=== PATIENT | male | born 1945 | race Caucasian/White ===

== ENCOUNTER → 2016-05-17 | Outpatient (CLI) | payer MEDICARE, OTHER ==
[2016-05-17 08:43] LABS: Basophils % (A) 1 %; CH 28.7; CHCM 32.9; Eosinophils # (A) 0.3 k/uL (0-0.7); Eosinophils % (A) 4 %; HCT 42.3 % (39.0-53.0); HGB 13.4 gm/dL (13.0-17.5); Luc # (Auto) 0.17; Luc % (Auto) 3; Lymphocytes # (A) 1.6 k/uL (1.0-4.8); Lymphocytes % (A) 29 %; MCH 27.8 pg (25.0-35.0); MCHC 31.7 g/dL (31.0-37.0); MCV 87.6 fL (80.0-100.0); Mean Platelet Volume 7.8; Monocytes # (A) 0.4 k/uL (0-1.0); Monocytes % (A) 7 %; Neutrophils # (A) 3.2 k/uL (1.3-7.7); Neutrophils % (A) 56 %; RBC 4.83 m/uL (4.30-5.90); RDW 13.3 % (11.5-15.5); WBC 5.7 k/uL (3.8-10.6); WBC (Perox) 6.23
[2016-05-17 09:00] LABS: ALT 57 U/L (21-72); AST 31 U/L (17-59); Alkaline Phosphatase 69 U/L (38-126); Anion Gap 9 mmol/L; Bilirubin, Delta 0.2 mg/dL (0.0-0.2); Blood Urea Nitrogen 18 mg/dL (9-20); Calcium 9.2 mg/dL (8.4-10.2); Carbon Dioxide 26 mmol/L (22-30); Chloride 108 mmol/L (98-107); Cholesterol 156 mg/dL (<200); Glucose 142 mg/dL (74-99); HDL Cholesterol 39 mg/dL (40-60); Non-African American GFR(MDRD) >60 (>60 ml/min/1.73 sqM); Potassium 4.7 mmol/L (3.5-5.1); Sodium 143 mmol/L (137-145); Total Bilirubin 0.4 mg/dL (0.2-1.3); Total Protein 7.2 g/dL (6.3-8.2); Triglycerides 187 mg/dL (<150)
[2016-05-17 10:51] LABS: Prostate Specific Antigen <0.06 ng/mL (0.00-4.00)
== END | disposition home or self-care (01) ==
LOC: LABWHC1 08:11
PROVIDERS: ATTEND Family Medicine
DX: Z00.00 Encounter for general adult medical examination without abnormal findings (principal); E78.5 Hyperlipidemia, unspecified; E11.9 Type 2 diabetes mellitus without complications; I10 Essential (primary) hypertension; G47.33 Obstructive sleep apnea (adult) (pediatric)
CPT/HCPCS: 36415; 80053; 80061; 82248; 84153; 84443; 85025

== ENCOUNTER → 2017-05-05 | Outpatient (CLI) | payer MEDICARE, OTHER | END | disposition home or self-care (01) | LOC: CPPFTMAIN 13:46 | PROVIDERS: ATTEND Family Medicine | DX: J20.9 Acute bronchitis, unspecified (principal); Z88.5 Allergy status to narcotic agent | CPT/HCPCS: 94060; 94726; 94729 ==

== ENCOUNTER → 2017-05-27 | Outpatient (CLI) | payer MEDICARE, OTHER ==
[2017-05-27 09:02] LABS: Basophils % (A) 1 %; Eosinophils # (A) 0.3 k/uL (0-0.7); Eosinophils % (A) 5 %; HCT 43.3 % (39.0-53.0); HGB 14.4 gm/dL (13.0-17.5); Lymphocytes # (A) 1.7 k/uL (1.0-4.8); Lymphocytes % (A) 28 %; MCH 28.5 pg (25.0-35.0); MCHC 33.3 g/dL (31.0-37.0); MCV 85.4 fL (80.0-100.0); Mean Platelet Volume 8.2; Monocytes # (A) 0.5 k/uL (0-1.0); Monocytes % (A) 8 %; Neutrophils # (A) 3.4 k/uL (1.3-7.7); Neutrophils % (A) 56 %; Platelet Count 248 k/uL (150-450); RBC 5.06 m/uL (4.30-5.90); RDW 13.8 % (11.5-15.5); WBC 6.1 k/uL (3.8-10.6)
[2017-05-27 09:32] LABS: ALT 61 U/L (21-72); AST 33 U/L (17-59); Albumin 4.3 g/dL (3.5-5.0); Alkaline Phosphatase 60 U/L (38-126); Anion Gap 15 mmol/L; Blood Urea Nitrogen 19 mg/dL (9-20); Calcium 9.7 mg/dL (8.4-10.2); Carbon Dioxide 24 mmol/L (22-30); Chloride 105 mmol/L (98-107); Cholesterol 161 mg/dL (<200); Glucose 146 mg/dL (74-99); HDL Cholesterol 37 mg/dL (40-60); LDL Cholesterol,Calculated 87 mg/dL (0-99); Potassium 4.4 mmol/L (3.5-5.1); Sodium 144 mmol/L (137-145); Total Bilirubin 0.5 mg/dL (0.2-1.3); Triglycerides 185 mg/dL (<150)
[2017-05-27 09:46] LABS: T4, Free (Free Thyroxine) 0.77 ng/dL (0.78-2.19)
[2017-05-27 10:02] LABS: Prostate Specific Antigen <0.10 ng/mL (0.00-4.00)
[2017-05-27 18:20] LABS: Hemoglobin A1C 6.9 % (4.0-6.0)
== END | disposition home or self-care (01) ==
LOC: LABWHC1 07:22
PROVIDERS: ATTEND Family Medicine
DX: Z00.00 Encounter for general adult medical examination without abnormal findings (principal); E78.2 Mixed hyperlipidemia; I10 Essential (primary) hypertension; E11.65 Type 2 diabetes mellitus with hyperglycemia
CPT/HCPCS: 36415; 80053; 80061; 83036; 84153; 84439; 84443; 85025

== ENCOUNTER → 2017-10-06 | Outpatient (CLI) | payer MEDICARE, OTHER | END | disposition home or self-care (01) | LOC: LABWHC1 08:04 | PROVIDERS: ATTEND Family Medicine | DX: Z08 Encounter for follow-up examination after completed treatment for malignant neoplasm (principal); Z85.46 Personal history of malignant neoplasm of prostate; Z79.899 Other long term (current) drug therapy | CPT/HCPCS: 36415; 84153 ==

== ENCOUNTER → 2018-02-26 | Outpatient (CLI) | payer MEDICARE, OTHER ==
--- NOTE | 2018-02-26 16:04 | CONS ---
CONSULTATION DATE OF SERVICE: 02/26/2018 This patient is a 72-year-old gentleman who has been re-evaluated in Sleep Center for obstructive sleep apnea-hypopnea syndrome. Patient has history of obstructive sleep apnea for about 8 years. He was on treatment with CPAP at 10 cm of water for all those years. Last visit to Sleep Center was about 3-1/2 years ago. Since that time, patient has continued to use his CPAP equipment until about 2 weeks ago, when his machine started to create some kind of burning smell when he put it on. Subsequently he stopped using the machine. He continued to have snoring and multiple awakenings from sleep without CPAP. At present the patient's sleep schedule from around 10 or 10:30 until 6 or 7 a.m. No problem at all with falling asleep. No TV in bedroom. He wakes up from sleep again several times with 2 episodes of nocturia. No history of hypnagogic hallucinations, sleep paralysis or cataplexy. In the morning patient wakes up tired, falling asleep during the day, has problems with memory. [place] Sleepiness Scale significantly increased at 12. PAST MEDICAL HISTORY: Positive for: 1. Hypertension. 2. Acid reflux. 3. Prostate cancer. 4. Type 2 diabetes. PAST SURGICAL HISTORY: 1. Surgical treatment for prostate cancer followed by radiation therapy. 2. Status post colostomy and then reversal of colostomy. MEDICATIONS: 1. Metformin. 2. Amlodipine. 3. Lisinopril. 4. Omeprazole. 5. Atorvastatin. 6. Baby aspirin. 7. [place]-3 supplement. SOCIAL HISTORY: Positive for smoking in the past; quit about 40 years ago. Alcohol consumption none at the present time. REVIEW OF SYSTEMS: Multiple awakenings from sleep, sleepiness during the day. PHYSICAL EXAMINATION: GENERAL: A pleasant gentleman without distress. VITAL SIGNS: BP 168/81, HR 51, RR 18, height 5 feet 6-1/2 inches, weight 216.4, body mass index 34.3, temperature 97.8, oxygen saturation at room air 96%. HEENT: PERRLA, EOMI. Evaluation of oropharynx showed tongue protrudes midline. Extremely low position of soft palate. Mallampati IV. NECK: Supple. No JVD. Thyroid is not palpable. Wide neck; 17-1/4 inches in circumference. LUNGS: Clear to percussion and to auscultation. Good air exchange. No wheezing or rhonchi. HEART: S1, S2 regular. No murmurs, gallops or rubs. ABDOMEN: Slightly obese. EXTREMITIES: No clubbing or cyanosis. GRAIN SHIPPER: Awake, alert, and oriented X3. Cranial nerves 2 to 7 intact. There is no fasciculation or atrophy. noted. No focal deficits observed. IMPRESSION: 1. History of obstructive sleep apnea for about 8 years. Patient continued to use his CPAP equipment, but recently the machine has been broken. He has snoring, multiple awakenings from sleep, extremely low position of soft palate, wide neck, excessive daytime sleepiness; obstructive sleep apnea-hypopnea syndrome. I reviewed results of previous sleep studies Patient had severe obstructive sleep apnea with apnea- hypopnea index of 43.8. 2. Obesity. 3. Hypertension. 4. Acid reflux. 5. Status post prostate cancer, status post surgical treatment and radiation therapy. 6. Status post colon stoma surgery and reversal of colostomy. 7. Diabetes mellitus, type 2. 8. Hyperlipidemia. PLAN: 1. Prescription for new CPAP unit with Auto PAP options. 2. Patient will continue to use CPAP equipment every night for the whole night. Previously pressure was at the level of 10 cm of water. 3. Sleep hygiene with regular time in bed for at least 8 hours. 4. No driving if feeling any sleepiness. 5. Losing weight. 6. I will see patient for follow-up visit in one month to check his clinical response on treatment with new CPAP, compliance with new CPAP, and to make any necessary adjustments. Thank you very much for allowing me to participate in the management of your patient. Sincerely, Brodie Albarado MD, PhD, FAASM Diplomat of [place] [employer] [place] [employer] Note Specialist of [facility] [place] MMODL / IJN: [id number] /
== END ==
LOC: SLEEP 13:04
PROVIDERS: ATTEND Internal Medicine
DX: G47.33 Obstructive sleep apnea (adult) (pediatric) (principal); E66.9 Obesity, unspecified; I10 Essential (primary) hypertension; K21.9 Gastro-esophageal reflux disease without esophagitis; E11.9 Type 2 diabetes mellitus without complications; E78.5 Hyperlipidemia, unspecified; Z93.3 Colostomy status; Z99.89 Dependence on other enabling machines and devices; Z85.46 Personal history of malignant neoplasm of prostate; Z98.890 Other specified postprocedural states; Z92.3 Personal history of irradiation; Z79.899 Other long term (current) drug therapy; Z79.82 Long term (current) use of aspirin; Z79.84 Long term (current) use of oral hypoglycemic drugs; Z87.891 Personal history of nicotine dependence
CPT/HCPCS: 99211

== ENCOUNTER → 2018-05-07 | Outpatient (CLI) | payer MEDICARE, OTHER ==
--- NOTE | 2018-05-07 16:31 | PN ---
PROGRESS NOTE DATE OF SERVICE: 05/07/2018 72-year-old gentleman who has been followed in Sleep Center for treatment of obstructive sleep apnea-hypopnea syndrome. Recently patient received new CPAP unit, and he is able to use equipment every night for the whole night without significant problems. He sleeps well with the machine. No snoring with the machine. [place] Sleepiness Scale today is 4, which is normal. I checked his CPAP unit. Pressure in the range 5 to 12, average pressure 10.7 cm of water. Usage is 100% of nights more than 4 hours. Average usage is 7.5 hours. Leak is 19 L/minute which is borderline. Apnea-hypopnea index 3.4, which is normal. MEDICATIONS: Metformin, amlodipine, lisinopril, omeprazole, atorvastatin, baby aspirin, and omega-3 supplement and pioglitazone. PHYSICAL EXAM: Patient in no distress. BP 142/72, HR 63, RR 16, weight 209.2, temp 98, O2 saturation at room air 95%. Oropharynx showed extremely low position of soft palate. Mallampati 4. Neck Supple, no JVD. Thyroid is not palpable. LUNGS Clear to percussion and to auscultation. Good air exchange. No wheezing or rhonchi. HEART S1, S2 regular. No murmurs, gallops, or rubs. ABDOMEN Soft and nontender. Bowel sounds are present. No organomegaly appreciated. EXTREMITIES No clubbing or cyanosis. DISCHARGING MACHINE OPERATOR Awake, alert, and oriented X3. Cranial nerves 2 to 7 intact. There is no fasciculation or atrophy. noted. No focal deficits observed. IMPRESSION: 1. Obstructive sleep apnea-hypopnea syndrome. Patient demonstrated 100% compliance with treatment benefitting from treatment. 2. Mild obesity. 3. Diabetes mellitus types 2. 4. Acid reflux. 5. Hypertension. 6. History of prostate carcinoma, status post surgical treatment and radiation therapy. 7. Hyperlipidemia. 8. History of colon polyps, history of colostomy which was reversed. PLAN: 1. Patient will continue to use CPAP equipment every night for the whole night. 2. Watching weight. 3. Sleep hygiene with regular time in bed for at least 8 hours. 4. No driving if feeling sleepiness. 5. We will maintain all necessary CPAP prescriptions including mask. Presently patient on Renteria FX medium nasal pillows tube filters. Thank you very much for allowing me to participate in management of your patient. Sincerely, Brodie Albarado MD, PhD, FAASM Diplomat of [place] [employer] [place] [employer] Tractor Trailer Moving Van Driver of [facility] [place] MMRASHEL / FLORINDA: [id number] /
== END ==
LOC: SLEEP 14:35
PROVIDERS: ATTEND Internal Medicine
DX: G47.33 Obstructive sleep apnea (adult) (pediatric) (principal); E66.9 Obesity, unspecified; E11.9 Type 2 diabetes mellitus without complications; K21.9 Gastro-esophageal reflux disease without esophagitis; E78.5 Hyperlipidemia, unspecified; I10 Essential (primary) hypertension; Z85.46 Personal history of malignant neoplasm of prostate; Z92.3 Personal history of irradiation; Z93.3 Colostomy status; Z86.010 Personal history of colon polyps; Z99.89 Dependence on other enabling machines and devices; Z79.899 Other long term (current) drug therapy; Z79.84 Long term (current) use of oral hypoglycemic drugs; Z79.82 Long term (current) use of aspirin

== ENCOUNTER → 2018-06-09 | Outpatient (CLI) | payer MEDICARE, OTHER ==
[2018-06-09 08:08] LABS: Basophils % (A) 1 %; Eosinophils # (A) 0.3 k/uL (0-0.7); Eosinophils % (A) 7 %; HCT 41.4 % (39.0-53.0); HGB 13.1 gm/dL (13.0-17.5); Lymphocytes # (A) 1.3 k/uL (1.0-4.8); Lymphocytes % (A) 34 %; MCH 27.6 pg (25.0-35.0); MCHC 31.6 g/dL (31.0-37.0); MCV 87.2 fL (80.0-100.0); Mean Platelet Volume 8.2; Monocytes # (A) 0.3 k/uL (0-1.0); Monocytes % (A) 7 %; Neutrophils # (A) 1.9 k/uL (1.3-7.7); Neutrophils % (A) 49 %; Platelet Count 249 k/uL (150-450); RBC 4.75 m/uL (4.30-5.90); RDW 14.8 % (11.5-15.5); WBC 3.8 k/uL (3.8-10.6)
[2018-06-09 10:46] LABS: Albumin 4.4 g/dL (3.80-4.90); Albumin/Globulin Ratio 2.44 (1.60-3.17); Calcium 9.4 mg/dL (8.7-10.3); Globulin 1.8 g/dL (1.6-3.3); LDL Cholesterol,Calculated 72.6 mg/dL (0.0-131.0); Potassium 4.6 mmol/L (3.5-5.5); Total Bilirubin 0.6 mg/dL (0.3-1.2); Total Protein 6.2 g/dL (6.2-8.2); VLDL Calculation 20.4 mg/dL (5.00-40.00)
[2018-06-09 10:54] LABS: T4, Free (Free Thyroxine) 1.2 ng/dL (0.80-1.80)
[2018-06-09 17:35] LABS: Hemoglobin A1C 6.4 % (4.0-6.0)
== END | disposition home or self-care (01) ==
LOC: LABWHC1 07:19
PROVIDERS: ATTEND Family Medicine
DX: Z00.00 Encounter for general adult medical examination without abnormal findings (principal); E78.5 Hyperlipidemia, unspecified; I10 Essential (primary) hypertension; E11.9 Type 2 diabetes mellitus without complications
CPT/HCPCS: 36415; 80053; 80061; 83036; 84153; 84439; 84443; 85025

== ENCOUNTER → 2018-06-15 | Outpatient (CLI) | payer MEDICARE, OTHER ==
--- NOTE | 2018-06-15 13:25 | XR ---
EXAMINATION TYPE: XR lumbosacral spine min 4V DATE OF EXAM: 06/15/2018 CLINICAL HISTORY: Low back pain and difficulty walking with no known injury TECHNIQUE: Frontal, lateral, and oblique images of the lumbar spine are obtained. COMPARISON: None FINDINGS: There are 5 lumbar type vertebral bodies identified. There is a levoscoliosis of the lumba r spine. This appears nonrotatory. The lumbar spine shows satisfactory alignment without evidence of acute fracture or dislocation. Vertebral body heights and disk space heights are within normal limits . Multilevel facet arthropathy is seen from L3 through S1. Very small anterior osteophytes are seen a t multiple levels. The oblique images appear within normal limits. The overlying soft tissue appea rs unremarkable. Severe atherosclerosis of the abdominal aorta is seen. Surgical clips are partially visualized in the pelvis. Diffuse osseous demineralization is seen. IMPRESSION: 1. No acute fracture or malalignment is seen in the lumbar spine. 2. Moderate multilevel degenerative disc disease of the lumbar spine, not rotatory levoscoliosis, and diffuse osseous demineralization.
== END ==
LOC: RADXRMAIN 11:34
PROVIDERS: ATTEND Family Medicine
DX: M51.16 Intervertebral disc disorders with radiculopathy, lumbar region (principal)
CPT/HCPCS: 72110

== ENCOUNTER → 2019-08-18 | Outpatient (CLI) | payer MEDICARE, OTHER ==
--- NOTE | 2019-08-19 00:01 | SFUN ---
SLEEP CENTER FOLLOW UP NOTE DATE OF SERVICE: 08/18/2019 This is a 73-year-old gentleman who has been followed in sleep center for treatment of obstructive sleep apnea-hypopnea syndrome. The patient successfully continuing to use his CPAP equipment every night for the whole night. No snoring with the machine. He sleeps well. [place] Sleepiness Scale is 3, which is totally perfect. I checked his CPAP unit, range of the pressure 5 to 12, average pressure 9.8 cm of water, usage is 30 out of 30 nights for more than 4 hours, average 7.5 hours per night, which is absolutely normal. Leak is 18 L/minute, which is acceptable. Apnea-hypopnea index 1.9, which is totally normal. MEDICATIONS: Atorvastatin, amlodipine, omeprazole, metformin, lisinopril, pioglitazone, vitamin D3, multivitamins, baby aspirin. PHYSICAL EXAMINATION: GENERAL: Patient in no distress. VITAL SIGNS: BP 151/75, HR 52, RR 16, height 5 feet 6 inches, weight 214, body mass index 34.5, temperature 97.9, oxygen saturation at room air 97%. HEENT: PERRLA, EOMI. Oropharynx extremely low position of soft palate. Mallampati 4. NECK: Supple, no JVD. Thyroid is not palpable. LUNGS: Clear to percussion and to auscultation. Good air exchange. No wheezing or rhonchi. HEART: S1, S2 regular. No murmurs, gallops, or rubs. ABDOMEN: Obese. EXTREMITIES: No clubbing or cyanosis. CMV DRIVER: Awake, alert, and oriented X3. Cranial nerves 2 to 7 intact. There is no fasciculation or atrophy. noted. No focal deficits observed. IMPRESSION: 1. Obstructive sleep apnea-hypopnea syndrome. Patient demonstrated great compliance with treatment benefitting from treatment. 2. Diabetes mellitus type 2. 3. Obesity. 4. Acid reflux. 5. Hyperlipidemia. 6. Hypertension. 7. History of prostate carcinoma, status post surgical treatment and radiation therapy. 8. Hyperlipidemia. 9. History of colon polyps, status post colostomy, which was . PLAN: 1. Patient will continue to use CPAP equipment every night for the whole night. 2. Losing weight. During this appointment, patient increased his weight on 5 pounds comparing with the previous visit. 3. No driving if feeling sleepiness. 4. I will maintain all necessary prescriptions for CPAP supplies including mask, tube, filters. Thank you very much for allowing me to participate in management of your patient. Sincerely, Brodie Albarado MD, PhD, FAASM Diplomat of [place] [employer] Specialties [employer] Board of Internal Medicine Dynamo Repairer of [facility] [place] MMRASHEL / FLORINDA: [id number] /
== END | disposition home or self-care (01) ==
LOC: SLEEP 15:14
PROVIDERS: ATTEND Internal Medicine
DX: G47.33 Obstructive sleep apnea (adult) (pediatric) (principal); E11.9 Type 2 diabetes mellitus without complications; E66.9 Obesity, unspecified; K21.9 Gastro-esophageal reflux disease without esophagitis; E78.5 Hyperlipidemia, unspecified; I10 Essential (primary) hypertension; Z68.34 Body mass index [BMI] 34.0-34.9, adult; Z85.46 Personal history of malignant neoplasm of prostate; Z86.010 Personal history of colon polyps; Z92.3 Personal history of irradiation; Z93.3 Colostomy status; Z79.84 Long term (current) use of oral hypoglycemic drugs; Z79.82 Long term (current) use of aspirin; Z79.899 Other long term (current) drug therapy

== ENCOUNTER → 2020-02-24 | Outpatient (CLI) | payer MEDICARE, OTHER ==
--- NOTE | 2020-02-24 20:15 | SFUN ---
SLEEP CENTER FOLLOW UP NOTE DATE OF SERVICE: 02/24/2020 74-year-old gentleman who has been followed in the Sleep Center for treatment of obstructive sleep apnea-hypopnea syndrome. The patient continues to use his CPAP equipment every night. He does not snore with the machine. [place] Sleepiness Scale today is 1. I checked his CPAP unit. Range of the pressure 5-12. The average pressure 10 cm of water. Usage is 29 out of 30 nights for more than 4 hours with average usage is 7.5 hours per night. Leak is 19 L/minute which is slightly increased. Apnea-hypopnea index is only 1.4, which is totally normal. The patient is using Renteria FX nasal pillow mask, medium size. MEDICATIONS: Atorvastatin 40 mg once a day, amlodipine 5 mg once a day. Omeprazole 20 mg once a day. Metformin 1000 mg twice a day, Pioglitazone 30 mg p.o. once a day, lisinopril 10 mg once a day. Multivitamins. PHYSICAL EXAM: Patient in no distress. BP 158/81. HR 65, RR 15, height 5 feet 6-1/2 inches, weight 224.4 pounds, BMI 35.6, temperature 98.3. Oxygen saturation at room air 97%. Oropharynx extremely low position of soft palate. Mallampati 4. NECK: Supple, no JVD. Thyroid is not palpable. LUNGS: Clear to percussion and to auscultation. Good air exchange. No wheezing or rhonchi. HEART: S1, S2 with some irregularities. No murmurs, gallops, or rubs. ABDOMEN: Soft and nontender. Bowel sounds are present. No organomegaly appreciated. EXTREMITIES: No clubbing or cyanosis. REVIEW COORDINATOR: Awake, alert, and oriented X3. Cranial nerves 2 to 7 intact. There is no fasciculation or atrophy. noted. No focal deficits observed. IMPRESSION: 1. Obstructive sleep apnea-hypopnea syndrome. The patient demonstrated practically 100% compliance with treatment benefitting from treatment. 2. Hypertension. 3. Diabetes mellitus type 2. 4. Acid reflux. 5. Hyperlipidemia. 6. History of prostate carcinoma, status post surgical treatment and radiation therapy. 7. History of colon polyps status post colostomy, which was reversed. PLAN: 1. Patient will continue to use PAP equipment every night for the whole night. 2. Sleep hygiene with regular time in bed for at least 7-1/2 to 8 hours. 3. Precautions related to driving. No driving if feeling sleepiness. 4. I will maintain all necessary prescription for PAP supplies including mask, tube, filters. 5. Watching weight. 6. No driving if feeling sleepiness. 7. Follow-up visit in 6 months or earlier if patient has any problems. Thank you very much for allowing me to participate in management of your patient. Sincerely, Brodie Albarado MD, PhD, FAASM Diplomat of [place] [employer] Special[employer] Board of Internal Medicine Fiberglasser of [facility] [place] MMODL / IJN: [id number] /
== END | disposition home or self-care (01) ==
LOC: SLEEP 13:20
PROVIDERS: ATTEND Internal Medicine
DX: G47.33 Obstructive sleep apnea (adult) (pediatric) (principal); I10 Essential (primary) hypertension; E11.9 Type 2 diabetes mellitus without complications; K21.9 Gastro-esophageal reflux disease without esophagitis; E78.5 Hyperlipidemia, unspecified; Z85.46 Personal history of malignant neoplasm of prostate; Z99.89 Dependence on other enabling machines and devices; Z92.3 Personal history of irradiation; Z86.010 Personal history of colon polyps; Z93.3 Colostomy status

== ENCOUNTER → 2020-08-29 | Outpatient (CLI) | payer MEDICARE, OTHER ==
--- NOTE | 2020-08-29 11:22 | XR ---
Cervical spine HISTORY: M 54.2 5 views of the cervical spine There is multilevel facet arthropathy. Oblique view show foraminal encroachment at C5-6, C6-7 bilater ally. There is spondylosis present at C5-6 and C6-7. Loss of disc height is also present at these lev els. Cervical vertebral bodies show preserved height and near-anatomic alignment. Prevertebral soft t issues are normal. IMPRESSION: Degenerative disc disease and facet arthropathy.
== END | disposition home or self-care (01) ==
LOC: RADXRMAIN 10:27
PROVIDERS: ATTEND Family Medicine
DX: M50.30 Other cervical disc degeneration, unspecified cervical region (principal); M47.812 Spondylosis without myelopathy or radiculopathy, cervical region
CPT/HCPCS: 72050

== ENCOUNTER → 2020-11-08 | Outpatient (CLI) | payer MEDICARE, OTHER ==
--- NOTE | 2020-11-08 19:23 | SFUN ---
SLEEP CENTER FOLLOW UP NOTE 75-year-old gentleman has been followed in Sleep Center for treatment of obstructive sleep apnea-hypopnea syndrome. The patient continued to use his CPAP equipment every night for the whole night getting his supplies in time. [place] Sleepiness Scale today is only 2 which is totally normal. I checked the CPAP unit. It is in automatic regimen with range of the pressure 5-12 cm of water. Average pressure 10 cm of water. Usage is 30/30 nights for more than 4 hours with average usage is 7.8 hours per night. Leak is 17 L/minute which is borderline. Apnea-hypopnea index is 2.5 which is totally normal. MEDICATIONS: Atorvastatin 40 mg once a day, amlodipine 5 mg once a day, omeprazole 20 mg once a day, metformin 1000 mg twice a day, lisinopril once a day, Pioglitazone 30 mg once a day, aspirin 81 mg once a day. Lisinopril 10 mg once a day, did not give the dose because she did not have the dose. PHYSICAL EXAMINATION: GENERAL: Patient in no distress. BP 147/79, HR 64, RR 12, height 5 feet 7 inches 1/2, weight 229. Patient increased his weight 5 pounds, body mass index 33.7, temperature 97.7, oxygen saturation at room air, 96%. Oropharynx extremely low position of soft palate, Mallampati 4. NECK: Supple, no JVD. Thyroid is not palpable. LUNGS: Clear to percussion and to auscultation. Good air exchange. No wheezing or rhonchi. HEART: S1, S2 regular. No murmurs, gallops, or rubs. ABDOMEN: Soft and nontender. Bowel sounds are present. No organomegaly appreciated. EXTREMITIES: No clubbing or cyanosis. SAGGER MAKER: Awake, alert, and oriented X3. Cranial nerves 2 to 7 intact. There is no fasciculation or atrophy. noted. No focal deficits observed. IMPRESSION: 1. Obstructive sleep apnea-hypopnea syndrome. Patient demonstrated great compliance with treatment, benefitting from treatment. 2. Hypertension. 3. Diabetes mellitus type 2. 4. Acid reflux. 5. Hyperlipidemia. 6. History of prostate carcinoma, status post surgical and radiation treatment. 7. History of colon polyps, status post reversed colostomy. PLAN: 1. Patient will continue to use PAP equipment every night for the whole night. 2. Sleep hygiene with regular time in bed for at least 7-1/2 to 8 hours. 3. Precautions related to driving. No driving if feeling sleepiness. 4. I will maintain all necessary prescription for PAP supplies including mask, tube, filters. 5. Watching weight. 6. Follow-up visit in 6 months or earlier if patient has any problems. Thank you very much for allowing me to participate in management of your patient. Sincerely, Brodie Albarado MD, PhD, FAASM Diplomat of [place] [employer] Specialties Sleep Medicine Board of [place] Board of Internal Medicine Film Developer of [facility] [place] MMODL / PATIENCEN: [id number] /
== END ==
LOC: SLEEP 10:09
PROVIDERS: ATTEND Internal Medicine
DX: G47.33 Obstructive sleep apnea (adult) (pediatric) (principal); I10 Essential (primary) hypertension; E11.9 Type 2 diabetes mellitus without complications; K21.9 Gastro-esophageal reflux disease without esophagitis; E78.5 Hyperlipidemia, unspecified; Z85.46 Personal history of malignant neoplasm of prostate; Z86.010 Personal history of colon polyps; Z99.89 Dependence on other enabling machines and devices; Z79.84 Long term (current) use of oral hypoglycemic drugs; Z79.899 Other long term (current) drug therapy; Z87.891 Personal history of nicotine dependence; Z88.5 Allergy status to narcotic agent

== ENCOUNTER → 2021-05-09 | Outpatient (CLI) | payer MEDICARE, OTHER ==
--- NOTE | 2021-05-09 15:13 | SFUN ---
SLEEP CENTER FOLLOW UP NOTE DATE OF SERVICE: 05/09/2021 75-year-old gentleman has been followed in Sleep Center for treatment of obstructive sleep apnea-hypopnea syndrome. Patient continues to use his CPAP equipment every night, getting his CPAP supplies in time, mentioned that he did not get his head gear for a while. [place] Sleepiness Scale is 2. I checked his CPAP unit. Range of the pressure 5-12, average pressure 10.8. Usage is 30/30 nights for more than 4 hours, average 8.2 hours per night. Leak is 28 L/minutes which is borderline. Apnea-hypopnea index is 3.4, which is in normal range. MEDICATIONS: Atorvastatin 40 mg once a day, amlodipine 5 mg once a day, omeprazole 20 mg once a day, metformin 1000 mg twice a day, Pioglitazone 30 mg once a day, lisinopril 10 mg once a day, aspirin 81 mg once a day, omega-3 supplement. PHYSICAL EXAMINATION: GENERAL: Patient in no distress. BP 156/86, HR 85, RR 16, weight 228.6 pounds, height 5 feet 7-1/2 inches. He lost 6 pounds since previous visit. Temperature 98.3, oxygen saturation at room air 96%. Oropharynx: Extremely low position of soft palate, Mallampati 4. NECK: Supple, no JVD. Thyroid is not palpable. LUNGS: Clear to percussion and to auscultation. Good air exchange. No wheezing or rhonchi. HEART: S1, S2 regular. No murmurs, gallops, or rubs. ABDOMEN: Slightly obese. Soft and nontender. Bowel sounds are present. No organomegaly appreciated. EXTREMITIES: No clubbing or cyanosis. CNC SPECIALIST: Awake, alert, and oriented X3. Cranial nerves 2 to 7 intact. There is no fasciculation or atrophy. noted. No focal deficits observed. IMPRESSION: 1. Obstructive sleep apnea-hypopnea syndrome. Patient demonstrated 100% compliance with treatment benefitting from treatment. 2. Diabetes mellitus type 2. 3. Hypertension. 4. Acid reflux. 5. Hyperlipidemia. 6. History of prostate carcinoma, status post surgical treatment and radiation therapy. 7. History of colon polyps status post reversed . PLAN: 1. Patient will continue to use PAP equipment every night for the whole night. 2. Sleep hygiene with regular time in bed for at least 7-1/2 to 8 hours. 3. Precautions related to driving. No driving if feeling sleepiness. 4. I will maintain all necessary prescription for PAP supplies including mask, tube, filters. 5. Watching weight. 6. Follow-up visit in 6 months or earlier if patient has any problems. Thank you very much for allowing me to participate in the management of your patient. Sincerely, Brodie Albarado MD, PhD, FAASM Diplomat of [place] [employer] Sleep Medicine Board of [place] Board of Internal Medicine Commissioned Police Officer of [facility] [place] MMODL / IJN: [id number] /
== END ==
LOC: SLEEP 09:57
PROVIDERS: ATTEND Internal Medicine
DX: G47.33 Obstructive sleep apnea (adult) (pediatric) (principal); E11.9 Type 2 diabetes mellitus without complications; I10 Essential (primary) hypertension; K21.9 Gastro-esophageal reflux disease without esophagitis; E78.5 Hyperlipidemia, unspecified; Z86.010 Personal history of colon polyps; Z85.46 Personal history of malignant neoplasm of prostate; Z99.89 Dependence on other enabling machines and devices; Z79.84 Long term (current) use of oral hypoglycemic drugs; Z88.5 Allergy status to narcotic agent

== ENCOUNTER → 2021-11-21 | Outpatient (CLI) | payer MEDICARE, OTHER ==
--- NOTE | 2021-11-21 10:47 | P.PN ---
Subjective DATE: 11/21/2021 FOLLOW UP VISIT. Patient with obstructive sleep apnea hypopnea syndrome return to sleep center for follow-up visit. Information from previous visit have been reviewed. Patient is using PAP equipment every night for the whole night, getting PAP supplies in time. The patient does not have significant problems with the mask, PAP unit and humidification. [place] sleepiness scale is 0, which is perfect. I checked PAP unit. Condition of air filter is good. PAP unit pressure 5-12, average 10.3 cm H2O. Usage is 100 % for more then 4 hours, average 7.8 hours per night. Leak is 23 l/m, which is in acceptable range. Apnea Hypopnea Index is 2.6, which is normal. MEDICATIONS:1. Atorvastatin 40 mg once a day 2. Amlodipine 5 mg once a day 3. Omeprazole 20 mg once a day 4. Metformin 1000 mg twice a day 5. Lisinopril 6. Pioglitazone 30 mg once a day 7. Aspirin 81 mg once a day During physical exam: GENERAL: A pleasant patient without any distress. VITAL SIGNS: BP 167/74, HR 78, RR 16, weight 2:30, temperature 98.0, oxygen saturation at room air 94 % . HEENT: PERRLA, EOMI.low position of soft palate, Mallapati 4 . NECK: Supple. No JVD. LUNGS: Clear to percussion and to auscultation. Good air exchange. No wheezing or rhonchi. HEART: S1, S2 regular. ABDOMEN: Soft and nontender. Obese EXTREMITIES: No clubbing or cyanosis. LIFT ELECTRICIAN: Awake, alert, and oriented x3. No focal deficit. Impressions: 1. Obstructive sleep apnea-hypopnea syndrome. Patient demonstrated great compliance with treatment, benefiting from treatment. 2. Obesity, patient increased his weight in 2 pounds comparing to the previous visit. 3. Diabetes mellitus type 2. 4. Hypertension. 5. Acid reflux. 6. Hyperlipidemia. 7. History of prostate CA status post surgical treatment and radiation treatment. 8. History of colon polyps status post surgical treatment. Plan: 1. Continue using PAP equipment every night for the whole night. 2. To change air filter at least 1-2 times per month. 3. PAP unit should stay lower then position of the head. 4. Advised patient to remove all remaining water from humidifier canister daily and make it dry after each usage. Refill canister with fresh distilled water before each usage. 5. Sleep hygiene with regular time in bed for at least 8 hours. 6. Precautions related to driving. No driving if feel any sleepiness. 7. I will maintain prescription for PAP supplies including mask, tube, filters. 8. Follow up visit in 6 months or earlier if patient has any problems. 9. Watching and losing weight. Thank you very much for allowing me to participate in the management of your patient. Brodie Albarado MD, PhD, FAASM. Diplomat of [place] [employer], Sleep Medicine Board by [place] [employer] Medicine Construction Checker of [facility] [place]
== END ==
LOC: SLEEP 09:56
PROVIDERS: ATTEND Internal Medicine
DX: G47.33 Obstructive sleep apnea (adult) (pediatric) (principal); E66.9 Obesity, unspecified; E11.9 Type 2 diabetes mellitus without complications; I10 Essential (primary) hypertension; K21.9 Gastro-esophageal reflux disease without esophagitis; E78.5 Hyperlipidemia, unspecified; F17.200 Nicotine dependence, unspecified, uncomplicated; Z85.46 Personal history of malignant neoplasm of prostate; Z86.010 Personal history of colon polyps; Z92.3 Personal history of irradiation; Z99.89 Dependence on other enabling machines and devices; Z88.5 Allergy status to narcotic agent
CPT/HCPCS: 99212

== ENCOUNTER → 2022-05-22 | Outpatient (CLI) | payer MEDICARE, OTHER ==
--- NOTE | 2022-05-22 10:36 | P.PN ---
Subjective DATE: 05/22/2022 FOLLOW UP VISIT. Patient with obstructive sleep apnea hypopnea syndrome return to sleep center for follow-up visit. Information from previous visit have been reviewed. Patient is using PAP equipment every night for the whole night, getting PAP supplies in time. The patient does not have significant problems with the mask, PAP unit and humidification. [place] sleepiness scale is 0, which is perfect. I checked information from PAP unit and explained it to the patient. PAP unit pressure 5-12, average around 10 cm H2O. Usage is 100 % for more then 4 hours, average 7.9 hours per night. Leak is 19 l/m, which is in acceptable range. Apnea Hypopnea Index is 2.5, which is normal. MEDICATIONS:1. Amlodipine 5 mg once a day 2. Atorvastatin 40 mg once a day 3. Omeprazole 20 mg once a day 4. Metformin 1000 mg twice a day 5. Lisinopril 6. Pioglitazone 30 mg once a day 7. Aspirin 81 mg once a day During physical exam: GENERAL: A pleasant patient without any distress. VITAL SIGNS: BP 181/78, HR 54, RR 16 , weight 229.2, BMI 35.8, temperature 97.6, oxygen saturation at room air 97 % . HEENT: PERRLA, EOMI.low position of soft palate, Mallapati 4 . NECK: Supple. No JVD. LUNGS: Clear to percussion and to auscultation. Good air exchange. No wheezing or rhonchi. HEART: S1, S2 regular. ABDOMEN: Soft and nontender. Slightly obese EXTREMITIES: No clubbing or cyanosis. SUPERVISOR HYDROCHLORIC AREA: Awake, alert, and oriented x3. No focal deficit. Impressions: 1. Obstructive sleep apnea-hypopnea syndrome. Patient demonstrated great compliance with treatment, benefiting from treatment. 2. Hypertension. 3. Diabetes mellitus type 2. 4. Obesity, BMI 35.8. 5. Hyperlipidemia. 6. Acid reflux. 7. History of colon polyps status post surgical treatment. 8. History of prostate CA status post surgical treatment and radiation therapy. Plan: 1. Continue using PAP equipment every night for the whole night. 2. To change air filter at least 1-2 times per month. 3. PAP unit should stay lower then position of the head. 4. Advised patient to remove all remaining water from humidifier canister daily and make it dry after each usage. Refill canister with fresh distilled water before each usage. 5. Sleep hygiene with regular time in bed for at least 8 hours. 6. Precautions related to driving. No driving if feel any sleepiness. 7. I will maintain prescription for PAP supplies including mask, tube, filters. 8. Watching weight. 9. Follow up visit in 6 months or earlier if patient has any problems. Thank you very much for allowing me to participate in the management of your patient. Brodie Albarado MD, PhD, FAASM. Diplomat of [place] [employer], Sleep Medicine Board by [place] [employer] Defense Travel Administrator of [facility] [place]
== END ==
LOC: SLEEP 10:10
PROVIDERS: ATTEND Internal Medicine
DX: G47.33 Obstructive sleep apnea (adult) (pediatric) (principal); E11.9 Type 2 diabetes mellitus without complications; E66.9 Obesity, unspecified; E78.5 Hyperlipidemia, unspecified; I10 Essential (primary) hypertension; K21.9 Gastro-esophageal reflux disease without esophagitis; Z68.35 Body mass index [BMI] 35.0-35.9, adult; Z79.84 Long term (current) use of oral hypoglycemic drugs; Z79.899 Other long term (current) drug therapy; Z85.46 Personal history of malignant neoplasm of prostate; Z87.19 Personal history of other diseases of the digestive system; Z92.3 Personal history of irradiation; Z98.890 Other specified postprocedural states; Z99.89 Dependence on other enabling machines and devices; Z79.82 Long term (current) use of aspirin; Z88.5 Allergy status to narcotic agent; Z87.891 Personal history of nicotine dependence
CPT/HCPCS: 99212

== ENCOUNTER → 2022-11-27 | Outpatient (CLI) | payer MEDICARE, OTHER ==
--- NOTE | 2022-11-27 12:25 | P.PN ---
Subjective DATE: 11/27/2022 FOLLOW UP VISIT. Patient with obstructive sleep apnea hypopnea syndrome return to sleep center for follow-up visit. Information from previous visit have been reviewed. Patient is using PAP equipment every night for the whole night, getting PAP supplies in time. The patient does not have significant problems with the mask, PAP unit and humidification. [place] sleepiness scale is 0. I checked information from PAP unit. PAP unit pressure 5-12, average 10.1 cm H2O. Usage is 100 % for more then 4 hours, average 8 hours per night. Leak is 22 l/m, which is in acceptable range. Apnea Hypopnea Index is 1.8, which is normal. MEDICATIONS:1. Atorvastatin 40 mg once a day 2. Amlodipine 5 mg once a day 3. Omeprazole 20 mg once a day 4. Metformin 1000 mg twice a day 5. Lisinopril 6. Pioglitazone 30 mg once a day During physical exam: GENERAL: A pleasant patient without any distress. VITAL SIGNS: BP 189/89, HR 61, RR 18, weight 219.2, temperature 98.0, oxygen saturation at room air 97 % . HEENT: PERRLA, EOMI.low position of soft palate, Mallapati 4 . NECK: Supple. No JVD. LUNGS: Clear to percussion and to auscultation. Good air exchange. No wheezing or rhonchi. HEART: S1, S2 regular. ABDOMEN: Soft and nontender, slightly obese EXTREMITIES: No clubbing or cyanosis. TOP INSTALLER: Awake, alert, and oriented x3. No focal deficit. Impressions: 1. Obstructive sleep apnea-hypopnea syndrome. Patient demonstrated great compliance with treatment, benefiting from treatment. 2. Obesity, patient lost 10 pounds comparing with previous visit. 3. Hypertension. 4. Hyperlipidemia. 5. Diabetes mellitus type 2. 6. Acid reflux. 7. History of prostate cancer, status post surgical and radiation treatment. 8. History of colon polyps, status post surgical treatment. Plan: 1. Continue using PAP equipment every night for the whole night. 2. To change air filter at least 1-2 times per month. 3. PAP unit should stay lower then position of the head. 4. Advised patient to remove all remaining water from humidifier canister daily and make it dry after each usage. Refill canister with fresh distilled water before each usage. 5. Sleep hygiene with regular time in bed for at least 8 hours. 6. Precautions related to driving. No driving if feel any sleepiness. 7. I will maintain prescription for PAP supplies including mask, tube, filters. 8. Follow up visit in 6 months or earlier if patient has any problems. 9. Watching and continue losing weight. Thank you very much for allowing me to participate in the management of your patient. Brodie Albarado MD, PhD, FAASM. Diplomat of [employer] [employer], Sleep Medicine Board by [employer] [employer] Group Home Manager of [facility] [place]
== END ==
LOC: 3 N SLEEP 10:21
PROVIDERS: ATTEND Internal Medicine
DX: G47.33 Obstructive sleep apnea (adult) (pediatric) (principal); I10 Essential (primary) hypertension; E78.5 Hyperlipidemia, unspecified; E11.9 Type 2 diabetes mellitus without complications; K21.9 Gastro-esophageal reflux disease without esophagitis; E66.9 Obesity, unspecified; Z79.84 Long term (current) use of oral hypoglycemic drugs; Z79.899 Other long term (current) drug therapy; Z85.46 Personal history of malignant neoplasm of prostate; Z87.19 Personal history of other diseases of the digestive system; Z92.3 Personal history of irradiation; Z99.89 Dependence on other enabling machines and devices; Z88.5 Allergy status to narcotic agent; Z87.891 Personal history of nicotine dependence
CPT/HCPCS: 99212

== ENCOUNTER → 2023-06-11 | Outpatient (CLI) | payer MEDICARE, OTHER ==
--- NOTE | 2023-06-11 11:33 | P.PN ---
Subjective DATE: 06/11/2023 FOLLOW UP VISIT. Patient with obstructive sleep apnea hypopnea syndrome return to sleep center for follow-up visit. Information from previous visit have been reviewed. Patient is using PAP equipment every night for the whole night, getting PAP supplies in time. The patient does not have significant problems with the mask, PAP unit and humidification. [place] sleepiness scale is 0, which is perfect. I checked information from PAP unit. PAP unit pressure 5-12, average 10.4 cm H2O. Usage is 100% for more then 4 hours, average 7.8 hours per night. Leak is 18.6 l/m, which is in acceptable range. Apnea Hypopnea Index is 2.2, which is normal. MEDICATIONS:1. Amlodipine 5 mg once a day 2. Atorvastatin 40 mg once a day 3. Omeprazole 20 mg once a day 4. Metformin 1000 mg twice a day 5. Lisinopril 6. Pioglitazone 30 mg once a day During physical exam: GENERAL: A pleasant patient without any distress. VITAL SIGNS: Please see below, weight 224.6 pounds. HEENT: PERRLA, EOMI.low position of soft palate, Mallapati 4 . NECK: Supple. No JVD. LUNGS: Clear to percussion and to auscultation. Good air exchange. No wheezing or rhonchi. HEART: S1, S2 regular. ABDOMEN: Soft and nontender.[] EXTREMITIES: No clubbing or cyanosis. INTERNAL CONTROL ANALYST: Awake, alert, and oriented x3. No focal deficit. Impressions: 1. Obstructive sleep apnea-hypopnea syndrome. Patient demonstrated great compliance with treatment, benefiting from treatment. 2. Obesity, patient increased weight on 5 pounds comparing to the previous visit. 3. Hypertension. 4. Hyperlipidemia. 5. Diabetes mellitus type 2. 6. History of prostate cancer, status post surgical and radiation treatment. 7. History of colon polyps status post surgical treatment. 8. Acid reflux. Plan: 1. Continue using PAP equipment every night for the whole night. 2. I showed patient how to change parts in his mask. 3. PAP unit should stay lower then position of the head. 4. Advised patient to remove all remaining water from humidifier canister daily and make it dry after each usage. Refill canister with fresh distilled water before each usage. 5. Sleep hygiene with regular time in bed for at least 8 hours. 6. Precautions related to driving. No driving if feel any sleepiness. 7. I will maintain prescription for PAP supplies including mask, tube, filters. 8.Watching and losing weight. 9. Follow up visit in 6 months or earlier if patient has any problems. Thank you very much for allowing me to participate in the management of your patient. Brodie Albarado MD, PhD, FAASM. Diplomat of [place] Board of Sleep Medicine, Sleep Medicine Board by [place] Board of Internal Medicine Supervisor Component Assembler of [facility] [place] Objective - Vital Signs Vital signs: Vital Signs Temp 98.1 F 06/11/23 11:18 Pulse 60 06/11/23 11:18 Resp 18 06/11/23 11:18 BP 176/83 06/11/23 11:18 Pulse Ox 97 06/11/23 11:18 FiO2 Intake & Output 06/10/23 06/11/23 06/11/23 18:59 06:59 18:59 Weight 101.775 kg
[2023-06-11 11:43] VITALS: BP 176/83; PULSE 60; RESP 18; TEMP 98.1
== END ==
LOC: 3 N SLEEP 10:36
PROVIDERS: ATTEND Internal Medicine
DX: G47.33 Obstructive sleep apnea (adult) (pediatric) (principal); E66.9 Obesity, unspecified; I10 Essential (primary) hypertension; E78.5 Hyperlipidemia, unspecified; E11.9 Type 2 diabetes mellitus without complications; K21.9 Gastro-esophageal reflux disease without esophagitis; Z85.46 Personal history of malignant neoplasm of prostate; Z87.19 Personal history of other diseases of the digestive system; Z98.890 Other specified postprocedural states; Z99.89 Dependence on other enabling machines and devices; Z79.84 Long term (current) use of oral hypoglycemic drugs; Z79.899 Other long term (current) drug therapy; Z92.3 Personal history of irradiation; Z88.5 Allergy status to narcotic agent; Z87.891 Personal history of nicotine dependence
CPT/HCPCS: 99212

== ENCOUNTER → 2023-12-25 | Outpatient (CLI) | payer MEDICARE, OTHER ==
[2023-12-25 10:30] VITALS: BP 182/78; PULSE 62; RESP 16; TEMP 97.6
--- NOTE | 2023-12-25 10:52 | P.PROGSL ---
Subjective DATE: 12/25/2023 FOLLOW UP VISIT. Patient with obstructive sleep apnea hypopnea syndrome return to sleep center for follow-up visit. Information from previous visit have been reviewed. Patient is using PAP equipment every night for the whole night, getting PAP supplies in time. The patient does not have significant problems with the mask, PAP unit and humidification. [place] sleepiness scale is 2, which is perfect. I checked information from PAP unit. PAP unit pressure 5-12, average 10.2 cm H2O. Usage is 100% for more then 4 hours, average 7.9 hours per night. Leak is 26 l/m, which is in acceptable range. Apnea Hypopnea Index is 2.2, which is normal. MEDICATIONS have been reviewed, please see below. During physical exam: GENERAL: A pleasant patient without any distress. VITAL SIGNS: Please see below, weight is 221 lbs. HEENT: PERRLA, EOMI.low position of soft palate, Mallapati 4 . NECK: Supple. No JVD. LUNGS: Clear to percussion and to auscultation. Good air exchange. No wheezing or rhonchi. HEART: S1, S2 regular. ABDOMEN: Soft and nontender. Slightly obese EXTREMITIES: No clubbing or cyanosis. HOME AID: Awake, alert, and oriented x3. No focal deficit. Impressions: 1. Obstructive sleep apnea-hypopnea syndrome. Patient demonstrated great compliance with treatment, benefiting from treatment. 2. Obesity, BMI 35.1, patient lost 3 pounds comparing with the previous visit. 3. Diabetes mellitus type 2, recent hemoglobin A1c according to patient less than 7. 4. Hypertension. 5. Hyperlipidemia. 6. Acid reflux. 7. History of prostate cancer, status post surgical and radiation treatment. 8. History of colon polyps, status post surgical treatment. Plan: 1. Continue using PAP equipment every night for the whole night. 2. Sleep hygiene with regular time in bed for at least 7.5-8 hours 3. PAP unit should stay lower then position of the head. 4. Advised patient to remove all remaining water from humidifier canister daily and make it dry after each usage. Refill canister with fresh distilled water before each usage. 5. Watching and continue losing weight. 6. Precautions related to driving. No driving if feel any sleepiness. 7. I will maintain prescription for PAP supplies including mask, tube, filters. 8. Follow up visit in 8 months or earlier if patient has any problems. Thank you very much for allowing me to participate in the management of your patient. Brodie Albarado MD, PhD, FAASM. Diplomat of [place] [employer] of Sleep Medicine, Sleep Medicine Board by [place] [employer] Internal Medicine Supply Service Worker of [facility] [place] cc: Aníbal Musa MD Objective - Vital Signs Vital Signs: Vital Signs Temp 97.6 F 12/25/23 10:29 Pulse 62 12/25/23 10:29 Resp 16 12/25/23 10:29 BP 182/78 12/25/23 10:29 Pulse Ox 95 12/25/23 10:29 FiO2 Intake & Output 12/24/23 12/25/23 12/25/23 18:59 06:59 18:59 Weight 100.244 kg Home Medications: Home Medications Medication Instructions Recorded Confirmed Type Aspirin 81 mg PO DAILY 07/26/13 12/25/23 History Omeprazole [PriLOSEC] 20 mg PO BID 07/26/13 12/25/23 History amLODIPine [Norvasc] 5 mg PO HS 07/26/13 12/25/23 History Atorvastatin [Lipitor] 40 mg PO DAILY 04/28/18 12/25/23 History Multivitamins, Thera [Multivitamin 1 tab PO DAILY 04/28/18 12/25/23 History (formulary)] Omega3/Dha/Epa/Fish Oil/Vit D3 1 tab PO DAILY 04/28/18 12/25/23 History [Fish Oil-Vit D3 Softgel] Pioglitazone [Actos] 30 mg PO DAILY 04/28/18 12/25/23 History Vit C/E/Zn/Coppr/Lutein/Zeaxan 1 tab PO DAILY 04/28/18 12/25/23 History [Preservision Areds 2 Softgel] lisinopriL [Zestril] 10 mg PO DAILY 04/28/18 12/25/23 History metFORMIN HCL [Glucophage] 1,000 mg PO BID 04/28/18 12/25/23 History
== END ==
LOC: 3 N SLEEP 10:16
PROVIDERS: ATTEND Internal Medicine
DX: G47.33 Obstructive sleep apnea (adult) (pediatric) (principal); E66.9 Obesity, unspecified; E11.9 Type 2 diabetes mellitus without complications; I10 Essential (primary) hypertension; E78.5 Hyperlipidemia, unspecified; K21.9 Gastro-esophageal reflux disease without esophagitis; Z85.46 Personal history of malignant neoplasm of prostate; Z98.890 Other specified postprocedural states; Z92.3 Personal history of irradiation; Z86.0100 Personal history of colon polyps, unspecified; Z99.89 Dependence on other enabling machines and devices; Z68.35 Body mass index [BMI] 35.0-35.9, adult; Z88.5 Allergy status to narcotic agent; Z79.84 Long term (current) use of oral hypoglycemic drugs; Z79.899 Other long term (current) drug therapy; Z87.891 Personal history of nicotine dependence
CPT/HCPCS: 99212

== ENCOUNTER 2024-06-14 16:48 | Emergency (ER) | payer MEDICARE, OTHER ==
--- NOTE | 2024-06-14 16:57 | ED ---
Lower Extremity Injury HPI - General Stated Complaint: leg swelling Time Seen by Provider: 06/14/24 16:51 Source: patient, RN notes reviewed Mode of arrival: ambulatory Limitations: no limitations - History of Present Illness Initial Comments: This is a 78-year-old male presenting with LLE edema x 7 days. Patient states leg has been becoming more red and hard to the touch. Denies use of anticoagulant medication, only ASA 81. Denies chest pain, dyspnea, hemoptysis. Onset/Timin -: days(s) Injury: Leg: Left - Related Data Home Medications Medication Instructions Recorded Confirmed Aspirin 81 mg PO DAILY 07/26/13 12/25/23 Omeprazole [PriLOSEC] 20 mg PO BID 07/26/13 12/25/23 amLODIPine [Norvasc] 5 mg PO HS 07/26/13 12/25/23 Atorvastatin [Lipitor] 40 mg PO DAILY 04/28/18 12/25/23 Multivitamins, Thera [Multivitamin 1 tab PO DAILY 04/28/18 12/25/23 (formulary)] Omega3/Dha/Epa/Fish Oil/Vit D3 1 tab PO DAILY 04/28/18 12/25/23 [Fish Oil-Vit D3 Softgel] Pioglitazone [Actos] 30 mg PO DAILY 04/28/18 12/25/23 Vit C/E/Zn/Coppr/Lutein/Zeaxan 1 tab PO DAILY 04/28/18 12/25/23 [Preservision Areds 2 Softgel] lisinopriL [Zestril] 10 mg PO DAILY 04/28/18 12/25/23 metFORMIN HCL [Glucophage] 1,000 mg PO BID 04/28/18 12/25/23 Allergies Allergy/AdvReac Type Severity Reaction Status Date / Time codeine AdvReac dizziness Verified 06/14/24 17:01 Review of Systems ROS Statement: Those systems with pertinent positive or pertinent negative responses have been documented in the HPI. ROS Other: All systems not noted in ROS Statement are negative. Past Medical History Past Medical History: Cancer, Diabetes Mellitus, GERD/Reflux, Hyperlipidemia, Hypertension Additional Past Medical History / Comment(s): HX COLOSTOMY R/T PERFORATED COLON AFTER COLONOSCOPY. HAS SINCE HAD REVERSAL. HX PROSTATE CANCER 2008 AND SKIN CA- 1993, macular degeneration, cataracts History of Any Multi-Drug Resistant Organisms: None Reported Past Surgical History: Bowel Resection, Prostate Surgery Additional Past Surgical History / Comment(s): COLOSTOMY W/REVERSAL, COLONSCOPY. RADICAL PROSTATECTOMY 2009 WITH RADIATION [place] AFTER. Past Anesthesia/Blood Transfusion Reactions: No Reported Reaction Past Alcohol Use History: None Reported Past Drug Use History: None Reported - Past Family History Father Family Medical History: Cancer Sister(s) Family Medical History: Cancer General Exam General appearance: alert, in no apparent distress Head exam: Present: atraumatic, normocephalic, normal inspection Eye exam: Present: normal appearance, PERRL, EOMI. Absent: scleral icterus, conjunctival injection, periorbital swelling ENT exam: Present: normal exam, mucous membranes moist Neck exam: Present: normal inspection. Absent: tenderness, meningismus, lymphadenopathy Respiratory exam: Present: normal lung sounds bilaterally. Absent: respiratory distress, wheezes, rales, rhonchi, stridor, accessory muscle use, decreased breath sounds, prolonged expiratory Cardiovascular Exam: Present: regular rate, normal rhythm, normal heart sounds. Absent: systolic murmur, diastolic murmur, rubs, gallop, clicks GI/Abdominal exam: Present: soft, normal bowel sounds. Absent: distended, tenderness, guarding, rebound, rigid Extremities exam: Present: full ROM, normal capillary refill, pedal edema (Positive BLE pitting edema extending to knees), calf tenderness (Positive bilateral calf tenderness/Homans' sign), other (Distal neurovascular and motor function intact. Posterior tibialis pulse +2 bilaterally). Absent: joint swelling Back exam: Present: normal inspection Neurological exam: Present: alert, oriented X3, CN II-XII intact Psychiatric exam: Present: normal affect, normal mood Skin exam: Present: warm, dry, intact, normal color. Absent: rash Course Vital Signs 06/14/24 06/14/24 16:56 19:17 Temperature 97.6 F 97.8 F Pulse Rate 69 61 Respiratory 18 18 Rate Blood Pressure 160/67 186/77 O2 Sat by Pulse 96 97 Oximetry Medical Decision Making - Medical Decision Making Was pt. sent in by a medical professional or institution (, PA, BACK TACKER, urgent care, hospital, or custodial...) When possible be specific @ -PCP Did you speak to anyone other than the patient for history (EMS, parent, family, police, friend...)? What history was obtained from this source @ -No Did you review nursing and triage notes (agree or disagree)? Why? @ -I reviewed and agree with nursing and triage notes Were old charts reviewed (outside hosp., previous admission, EMS record, old EKG, old radiological studies, urgent care reports/EKG's, custodial records)? Report findings @ -No old charts were reviewed Differential Diagnosis (chest pain, altered mental status, abdominal pain women, abdominal pain men, vaginal bleeding, weakness, fever, dyspnea, syncope, headache, dizziness, GI bleed, back pain, seizure, CVA, palpatations, mental health, musculoskeletal)? @ -Differential Musculoskeletal Muscular strain, contusion, ligament sprain, fracture, arthritis, septic arthritis, bursitis, cellulitis, muscle spasm, nerve compression, DVT, arterial occlusion, herpes zoster, electrolyte abnormality, tumor.... This is not meant to be in all inclusive list EKG interpreted by me (3pts min.). @ -Not done X-rays interpreted by me (1pt min.). @ -None done CT interpreted by me (1pt min.). @ -None done U/S interpreted by me (1pt. min.). @ -LLE Doppler ultrasound appears negative for DVT with patient unable to tolerate compression of common femoral vein and distal femoral vein but patency visualized. What testing was considered but not performed or refused? (CT, X-rays, U/S, labs)? Why? @ -None What meds were considered but not given or refused? Why? @ -None Did you discuss the management of the patient with other professionals (professionals i.e. , PA, BACK TACKER, lab, RT, psych nurse, rn social work, knifeman, teacher, strategic intelligence officer, nurse case management)? Give summary @ -No Was smoking cessation discussed for >3mins.? @ -No Was critical care preformed (if so, how long)? @ -No Were there social determinants of health that impacted care today? How? (Homelessness, low income, unemployed, alcoholism, drug addiction, transportation, low edu. Level, literacy, decrease access to med. care, detention, rehab)? @ -No Was there de-escalation of care discussed even if they declined (Discuss DNR or withdrawal of care, Hospice)? DNR status @ -No What co-morbidities impacted this encounter? (DM, HTN, Smoking, COPD, CAD, Cancer, CVA, ARF, Chemo, Hep., AIDS, mental health diagnosis, sleep apnea, morbid obesity)? @ -None Was patient admitted / discharged? Hospital course, mention meds given and route, prescriptions, significant lab abnormalities, going to OR and other pertinent info. @ -LLE Doppler ultrasound appears negative for DVT with patient unable to tolerate compression of common femoral vein and distal femoral vein but patency visualized. Advised compression stockings and elevation of extremities. Advised follow-up with PCP for ongoing management of BLE edema. Discussed patient with Dr. Garcia. Undiagnosed new problem with uncertain prognosis? @ -No Drug Therapy requiring intensive monitoring for toxicity (Heparin, Nitro, Insulin, Cardizem)? @ -No Were any procedures done? @ -No Diagnosis/symptom? @ -Lower extremity edema Acute, or Chronic, or Acute on Chronic? @ -Acute Uncomplicated (without systemic symptoms) or Complicated (systemic symptoms)? @ -Uncomplicated Side effects of treatment? @ -No Exacerbation, Progression, or Severe Exacerbation? @ -No Poses a threat to life or bodily function? How? (Chest pain, USA, MS, pneumonia, PE, COPD, DKA, ARF, appy, cholecystitis, CVA, Diverticulitis, Homicidal, Suicidal, threat to staff... and all critical care pts) @ -No Disposition Clinical Impression: Lower extremity edema Disposition: HOME SELF-CARE Condition: Good Instructions (If sedation given, give patient instructions): Leg Edema (ED) Additional Instructions: Compression stockings and leg elevation for swelling. Follow-up with PCP for ongoing management of workup of lower extremity swelling. Is patient prescribed a controlled substance at d/c from ED?: No Referrals: Piotr Gray Jr, [Primary Care Provider] - 1-2 days Time of Disposition: 18:39
[2024-06-14 17:01] VITALS: RESP 18
--- NOTE | 2024-06-14 17:53 | US ---
EXAMINATION TYPE: US venous doppler duplex LE LT DATE OF EXAM: 06/14/2024 5:48 PM COMPARISON: NONE CLINICAL INDICATION: Male, 78 years old with history of Swelling, erythema; pt states swelling and pa in in leg. patient states it feels like it locks up. no hx dvt. pt takes baby aspirin , Pain TECHNIQUE: The lower extremity deep venous system is examined utilizing real time linear array sonog omero with graded compression, color doppler sonography, and spectral doppler. SIDE PERFORMED: Left FINDINGS: VESSELS IMAGED: Common Femoral Vein Deep Femoral Vein Greater Saphenous Vein * Femoral Vein Popliteal Vein Small Saphenous Vein * Proximal Calf Veins (* superficial vessels) Left Leg: Appears negative for dvt. Pt unable to tolerate compression at the level of the CFV and di stal femoral vein, Color Doppler imaging shows patency of the vessels. Spectral waveforms are within normal limits. IMPRESSION: No visualized deep venous thrombosis of the left lower extremity. However the patient was unable to t olerate compression at the level of the CFV and distal femoral vein. [facility], , 06/14/2024 5:51 PM
[2024-06-14 19:19] VITALS: BP 186/77; PULSE 61; TEMP 97.8
== END 2024-06-14 19:18 | disposition home or self-care (01) ==
LOC: EC 16:48
DX: R60.0 Localized edema (principal); Z88.5 Allergy status to narcotic agent
CPT/HCPCS: 99283

== ENCOUNTER → 2024-06-23 | Outpatient (CLI) | payer MEDICARE, OTHER ==
--- NOTE | 2024-06-23 14:47 | US ---
EXAMINATION TYPE: US arterial LE single level DATE OF EXAM: 06/23/2024 1:25 PM COMPARISONS: None. CLINICAL INDICATION: Male, 78 years old with history of [id number] SWELLING OF LOWER EXTREMITIES; edema TECHNIQUE: Systolic pressures were taken of the upper and lower extremity arteries with ankle-brachia l indices and toe brachial indices calculated bilaterally. History of: Smoker: No Hypertension: Yes Diabetic: Yes Hyperlipidemia: Yes TIA/CVA: No Previous Vascular Surgery: No CAD: No OR: No Vascular Ulcers: No Claudication: No Gangrene: No FINDINGS: Doppler Waveforms: Right: Multiphasic Left: Multiphasic Brachial Artery systolic pressure: Right: 135 Left: 131 Posterior Tibial artery systolic pressure: Right: 173 Left: 169 Dorsalis Pedis artery systolic pressure: Right: 165 Left: 148 Ankle-Brachial Indices: Right:1.28 Left: 1.25 (Normal > 0.6; Mild 0.35 - 0.59, Moderate 0.12 - 0.34, Severe <0.12) IMPRESSION: JUJU: Right: Normal 0.9 - 1.4, Recommendation: None Left: Normal 0.9 - 1.4, Recommendation: None [facility], , 06/23/2024 2:44 PM
--- NOTE | 2024-06-24 10:09 | CA ---
Transthoracic Echo Report Name: Raúl Roe Age: 78 Gender: M : 1945 Exam Date: 06/23/2024 12:57 Exam Location: [place] [facility] Ht (in): 66 Wt (lb): 220 Ordering Physician: Piotr Gray DO Attending/Referring Phys: Bill Holly [facility] [employer] Tender Mery Hoskins RDCS Procedure CPT: Indications: R06.02 SOB Cardiac Hx: Technical Quality: Fair Contrast 1: Total Dose (mL): Contrast 2: Total Dose (mL): MEASUREMENTS (Male / Female) Normal Values 2D ECHO LV Diastolic Diameter PLAX 4.5 cm 4.2 - 5.9 / 3.9 - 5.3 cm LV Systolic Diameter PLAX 3.2 cm IVS Diastolic Thickness 1.2 cm 0.6 - 1.0 / 0.6 - 0.9 cm LVPW Diastolic Thickness 1.3 cm 0.6 - 1.0 / 0.6 - 0.9 cm LV Relative Wall Thickness 0.5 RV Internal Dim ED PLAX 3.9 cm LVOT Diameter 2.3 cm LA Systolic Diameter LX 3.8 cm 3.0 - 4.0 / 2.7 - 3.8 cm LV Diastolic Volume MOD BP 92.4 cm??? 67 - 155 / 56 - 104 cm??? LV Systolic Volume MOD BP 31.1 cm??? 22 - 58 / 19 - 49 cm??? LV Ejection Fraction MOD BP 66.3 % >= 55 % LV Cardiac Index MOD BP 1617.4 cm???/min???m??? LV Diastolic Volume MOD 4C 83.9 cm??? LV Systolic Volume MOD 4C 31.3 cm??? LV Ejection Fraction MOD 4C 62.6 % LV Cardiac Index MOD 4C 1387.9 cm???/min???m??? LV Diastolic Length 4C 8.7 cm LV Systolic Length 4C 6.3 cm LV Diastolic Volume MOD 2C 93.3 cm??? LV Systolic Volume MOD 2C 33.4 cm??? LV Ejection Fraction MOD 2C 64.2 % LV Cardiac Index MOD 2C 1581.7 cm???/min???m??? LV Diastolic Length 2C 7.6 cm LV Systolic Length 2C 6.6 cm LA Volume 41.7 cm??? 18 - 58 / 22 - 52 cm??? LA Volume Index 19.0 cm???/m??? 16 - 28 cm???/m??? M-MODE Aortic Root Diameter MM 3.7 cm AV Cusp Separation MM 2.2 cm DOPPLER AV Peak Velocity 179.9 cm/s AV Peak Gradient 12.9 mmHg AV Mean Velocity 102.3 cm/s AV Mean Gradient 5.2 mmHg AV Velocity Time Integral 31.2 cm LVOT Peak Velocity 171.9 cm/s LVOT Peak Gradient 11.8 mmHg LVOT Velocity Time Integral 32.1 cm LVOT Stroke Volume 134.7 cm??? LVOT Stroke Volume Index 64.7 ml/m??? LVOT Cardiac Index 3556.9 cm???/min???m??? AV Area Cont Eq vti 4.3 cm??? AV Area Cont Eq pk 4.0 cm??? TR Peak Velocity 256.4 cm/s TR Peak Gradient 26.3 mmHg Right Ventricular Systolic Press 31.3 mmHg FINDINGS Left Ventricle Left ventricular ejection fraction is estimated at 55-60 %. Left ventricular cavity size normal. Mildly increased septal wall thickness. Normal left ventricular wall motion. Right Ventricle Moderate right ventricular dilatation. Right ventricular systolic pressure within normal limits. Right Atrium Normal right atrial size. No right atrial thrombus or mass seen. Left Atrium Normal left atrial size. No left atrial thrombus or mass present. Mitral Valve Structurally normal mitral valve. No evidence for mitral valve prolapse. No mitral stenosis. Trace mitral regurgitation. Aortic Valve Thickened aortic valve without stenosis. Tricuspid Valve Structurally normal tricuspid valve. Mild tricuspid regurgitation. Pulmonic Valve Pulmonic valve not well visualized. No pulmonic regurgitation. Pericardium No pericardial effusion. Aorta Normal size aortic root and proximal ascending aorta. CONCLUSIONS Normal LV size and systolic function. Mild mitral and tricuspid regurgitation. No significant pulmonary hypertension. No pericardial effusion, mild RV dilatation Previewed by: Dr. Balbina Lomeli MD (Electronically Signed) Final Date: 24 Jun 2024 10:08
== END | disposition home or self-care (01) ==
LOC: RADECHMAIN 12:43
PROVIDERS: ATTEND Family Medicine
DX: M79.89 Other specified soft tissue disorders (principal); M79.605 Pain in left leg; L53.9 Erythematous condition, unspecified
CPT/HCPCS: 93306; 93922

== ENCOUNTER 2024-06-24 15:21 | Emergency (ER) | payer MEDICARE, OTHER ==
--- NOTE | 2024-06-24 16:15 | ED ---
Back Pain HPI - General Chief Complaint: Back Pain/Injury Stated Complaint: R leg pain Time Seen by Provider: 06/24/24 15:40 Source: patient, family, RN notes reviewed Mode of arrival: wheelchair Limitations: no limitations - History of Present Illness Initial Comments: This is a 78-year-old male with history of prostate CA, DM, hypertension and hyperlipidemia presenting for right hip and sharp low back pain since last night. Patient endorses undergoing recent echocardiogram and BLE ultrasound on 06/23/2024 to determine cause of lower extremity edema, suspecting the pain may have been elicited during procedure while lying on his left side. Patient otherwise denies known injury. States pain worsens significantly with movement and weightbearing (9/10), making ambulation difficult. Also endorses right quadricep muscle cramping and spasm. Patient states he has a walker that he uses at home. Denies [id number] medication use. Denies saddle paresthesia or urinary incontinence/retention. Denies extremity radiculopathy, paresthesia, weakness. Onset/Timin -: days(s) Similar Symptoms Previously: No Radiation: right leg Severity scale (1-10): 9 Consistency: intermittent Improves With: immobilization Worsens With: movement, walking Associated Symptoms: difficulty walking - Related Data Home Medications Medication Instructions Recorded Confirmed Aspirin 81 mg PO DAILY 07/26/13 12/25/23 Omeprazole [PriLOSEC] 20 mg PO BID 07/26/13 12/25/23 amLODIPine [Norvasc] 5 mg PO HS 07/26/13 12/25/23 Atorvastatin [Lipitor] 40 mg PO DAILY 04/28/18 12/25/23 Multivitamins, Thera [Multivitamin 1 tab PO DAILY 04/28/18 12/25/23 (formulary)] Omega3/Dha/Epa/Fish Oil/Vit D3 1 tab PO DAILY 04/28/18 12/25/23 [Fish Oil-Vit D3 Softgel] Pioglitazone [Actos] 30 mg PO DAILY 04/28/18 12/25/23 Vit C/E/Zn/Coppr/Lutein/Zeaxan 1 tab PO DAILY 04/28/18 12/25/23 [Preservision Areds 2 Softgel] lisinopriL [Zestril] 10 mg PO DAILY 04/28/18 12/25/23 metFORMIN HCL [Glucophage] 1,000 mg PO BID 04/28/18 12/25/23 Previous Rx's Medication Instructions Recorded Cyclobenzaprine [Flexeril] 10 mg PO Q8H PRN #15 tab 06/24/24 Allergies Allergy/AdvReac Type Severity Reaction Status Date / Time codeine AdvReac dizziness Verified 06/14/24 17:01 Review of Systems ROS Statement: Those systems with pertinent positive or pertinent negative responses have been documented in the HPI. ROS Other: All systems not noted in ROS Statement are negative. Past Medical History Past Medical History: Cancer, Diabetes Mellitus, GERD/Reflux, Hyperlipidemia, Hypertension Additional Past Medical History / Comment(s): HX COLOSTOMY R/T PERFORATED COLON AFTER COLONOSCOPY. HAS SINCE HAD REVERSAL. HX PROSTATE CANCER 2008 AND SKIN CA- 1993, macular degeneration, cataracts History of Any Multi-Drug Resistant Organisms: None Reported Past Surgical History: Bowel Resection, Hernia Repair, Prostate Surgery Additional Past Surgical History / Comment(s): COLOSTOMY W/REVERSAL, COLONSCOPY. RADICAL PROSTATECTOMY 2008 WITH RADIATION [place] AFTER. Past Anesthesia/Blood Transfusion Reactions: No Reported Reaction Past Psychological History: No Psychological Hx Reported Smoking Status: Never smoker - Past Family History Father Family Medical History: Cancer Sister(s) Family Medical History: Cancer General Exam Limitations: no limitations General appearance: alert, in no apparent distress Head exam: Present: atraumatic, normocephalic, normal inspection Eye exam: Present: normal appearance, PERRL, EOMI. Absent: scleral icterus, con junctival injection, periorbital swelling ENT exam: Present: normal exam, mucous membranes moist Neck exam: Present: normal inspection. Absent: tenderness, meningismus, lymphadenopathy Respiratory exam: Present: normal lung sounds bilaterally. Absent: respiratory distress, wheezes, rales, rhonchi, stridor Cardiovascular Exam: Present: regular rate, normal rhythm, normal heart sounds. Absent: systolic murmur, diastolic murmur, rubs, gallop, clicks GI/Abdominal exam: Present: soft, normal bowel sounds. Absent: distended, tenderness, guarding, rebound, rigid Extremities exam: Present: full ROM, tenderness (Positive right lateral hip point TTP. Pain reproduced with hip abduction), normal capillary refill, other (Distal RLE neurovascular motor function intact). Absent: pedal edema, joint swelling, calf tenderness Back exam: Present: normal inspection. Absent: muscle spasm, paraspinal tenderness, vertebral tenderness Neurological exam: Present: alert, oriented X3, CN II-XII intact Psychiatric exam: Present: normal affect, normal mood Skin exam: Present: warm, dry, intact, normal color. Absent: rash Course Vital Signs 06/24/24 15:37 Temperature 97.4 F L Pulse Rate 83 Respiratory 20 Rate Blood Pressure 136/70 O2 Sat by Pulse 98 Oximetry Medical Decision Making - Medical Decision Making Was pt. sent in by a medical professional or institution (, PA, INVENTORY CHECKER, urgent care, hospital, or detention...) When possible be specific @ -[No] Did you speak to anyone other than the patient for history (EMS, parent, family, police, friend...)? What history was obtained from this source @ -[No] Did you review nursing and triage notes (agree or disagree)? Why? @ -[I reviewed and agree with nursing and triage notes] Were old charts reviewed (outside hosp., previous admission, EMS record, old EKG, old radiological studies, urgent care reports/EKG's, detention records)? Report findings @ -Results from echocardiogram and lower extremity arterial Doppler JUJU from 06/23/2024 reviewed, indicating LVEF at 55-60% and bilateral JUJU WNL. Differential Diagnosis (chest pain, altered mental status, abdominal pain women, abdominal pain men, vaginal bleeding, weakness, fever, dyspnea, syncope, head ache, dizziness, GI bleed, back pain, seizure, CVA, palpatations, mental health, musculoskeletal)? @ -Differential Musculoskeletal Muscular strain, contusion, ligament sprain, fracture, arthritis, septic arthritis, bursitis, cellulitis, muscle spasm, nerve compression, DVT, arterial occlusion, herpes zoster, electrolyte abnormality, tumor.... This is not meant to be in all inclusive list EKG interpreted by me (3pts min.). @ -Not done X-rays interpreted by me (1pt min.). @ -[None done] CT interpreted by me (1pt min.). @ -[None done] U/S interpreted by me (1pt. min.). @ -[None done] What testing was considered but not performed or refused? (CT, X-rays, U/S, labs)? Why? @ -[None] What meds were considered but not given or refused? Why? @ -[None] Did you discuss the management of the patient with other professionals (professionals i.e. , PA, INVENTORY CHECKER, lab, RT, psych nurse, social work specialist, site medical director, teacher, conservation science officer, nurse case manager)? Give summary @ -[No] Was smoking cessation discussed for >3mins.? @ -[No] Was critical care preformed (if so, how long)? @ -[No] Were there social determinants of health that impacted care today? How? (Homelessness, low income, unemployed, alcoholism, drug addiction, transportation, low edu. Level, literacy, decrease access to med. care, intermediate, rehab)? @ -[No] Was there de-escalation of care discussed even if they declined (Discuss DNR or withdrawal of care, Hospice)? DNR status @ -[No] What co-morbidities impacted this encounter? (DM, HTN, Smoking, COPD, CAD, Cancer, CVA, ARF, Chemo, Hep., AIDS, mental health diagnosis, sleep apnea, morbid obesity)? @ -[None] Was patient admitted / discharged? Hospital course, mention meds given and route, prescriptions, significant lab abnormalities, going to OR and other pertinent info. @ -[hospital course] Undiagnosed new problem with uncertain prognosis? @ -[No] Drug Therapy requiring intensive monitoring for toxicity (Heparin, Nitro, Insulin, Cardizem)? @ -[No] Were any procedures done? @ -[No] Diagnosis/symptom? @ -[default] Acute, or Chronic, or Acute on Chronic? @ -Acute Uncomplicated (without systemic symptoms) or Complicated (systemic symptoms)? @ -Uncomplicated Side effects of treatment? @ -[No] Exacerbation, Progression, or Severe Exacerbation? @ -[No] Poses a threat to life or bodily function? How? (Chest pain, [place], [place], pneumonia, PE, COPD, DKA, ARF, appy, cholecystitis, CVA, Diverticulitis, Homicidal, Suicidal, threat to staff... and all critical care pts) @ -[No] Disposition Clinical Impression: Acute right hip pain Disposition: HOME SELF-CARE Condition: Fair Instructions (If sedation given, give patient instructions): Hip Pain (ED) Additional Instructions: Tylenol every 4 hours for pain. Follow-up with PCP/orthopedics for ongoing management of hip pain. Prescriptions: Cyclobenzaprine [Flexeril] 10 mg PO Q8H PRN #15 tab PRN Reason: Spasms Is patient prescribed a controlled substance at d/c from ED?: No Referrals: Piotr Gray Jr, [Primary Care Provider] - 1-2 days [facility] [Provider Group] - 1-2 days [facility] [Provider Group] - 1-2 days Time of Disposition: 18:59
--- NOTE | 2024-06-24 17:46 | XR ---
EXAMINATION TYPE: XR Hip Complete RT DATE OF EXAM: 06/24/2024 5:36 PM COMPARISON: None. CLINICAL INDICATION: Male, 78 years old with history of Low back pn radiating to right hip, unable to amb, pain TECHNIQUE: 2 view(s) obtained. FINDINGS: Right femoral head articulates with the acetabulum. Joint space is mild diffuse narrowing. No acute f racture or dislocation evident. Multiple surgical clips are within the pelvis. IMPRESSION: 1. No acute osseous abnormality right hip [facility], Workstation: [facility], 06/24/2024 5:43 PM
--- NOTE | 2024-06-24 17:48 | XR ---
EXAMINATION TYPE: XR lumbosacral spine min 4V DATE OF EXAM: 06/24/2024 5:36 PM COMPARISON: None. CLINICAL INDICATION: Male, 78 years old with history of Low back pain radiating to right hip, unable to amb, pain TECHNIQUE: 5 view(s) obtained. FINDINGS: There are 5 lumbar-type vertebral bodies. Pedicles are intact. There is attempted sacralization of L5 . Scoliosis present with convexity to the left centered at L2. T12 ribs or mesentery. Facet degenerative changes are present L4-5 and L5-S1. Mild facet changes are present on the right mi d lumbar spine. Disc heights are generally preserved. Posterior disc space narrowing L3-4 and possibl y L4-5 may be present. Vertebral body heights are preserved. No spondylolisthesis. Vascular calcifica tions within the aorta. IMPRESSION: 1. Scoliosis. 2. Facet degenerative changes [facility], Workstation: [facility], 06/24/2024 5:46 PM
[2024-06-24] MEDS: ACETAMINOPHEN TAB 500 MG TAB PO STA (18:34)
[2024-06-24] MEDS: KETOROLAC 15 MG/ML 1 ML VIAL IM STA (18:35)
[2024-06-24] MEDS: ORPHENADRINE 30 MG/ML 2 ML VIAL IM STA (18:36)
[2024-06-24 19:35] VITALS: BP 147/80; PULSE 79; RESP 18; TEMP 97.8
== END 2024-06-24 21:14 | disposition home or self-care (01) ==
LOC: EC 15:21
DX: M25.551 Pain in right hip (principal); Z88.5 Allergy status to narcotic agent
CPT/HCPCS: 72110; 73502; 99283; 96372 ×2; J2360; J1885

== ENCOUNTER 2024-06-30 10:20 | Inpatient (IN) | payer MEDICARE, OTHER ==
[~2024-06-30 10:20] MED LIST: PIOGLITAZONE 30 MG TAB PO SCH
[2024-06-30] MEDS ORDERED: MORPHINE SULFATE 4 MG/ML SYRINGE IV PRN (11:19)
[2024-06-30] MEDS ORDERED: NALOXONE 0.4 MG/ML 1 ML VIAL IV PRN (11:19)
[2024-06-30] MEDS ORDERED: ACETAMINOPHEN TAB 325 MG TAB PO PRN (11:19)
--- NOTE | 2024-06-30 11:37 | ED ---
General Adult HPI - General Chief complaint: Recheck/Abnormal Lab/Rx Stated complaint: R Leg Pain Time Seen by Provider: 06/30/24 10:28 Source: patient, family Mode of arrival: wheelchair Limitations: no limitations - History of Present Illness Initial comments: 78-year-old male presents to the emergency department for right hip pain. Patient notes that this been going on for around 1 week. He notes that the pain is mostly in his right hip and into his right thigh. He has been using his walker and attempt to get around but states he is not able to walk or pivot because of the pain. He followed up with orthopedics today who sent him to the emergency department for admission. - Related Data Home Medications Medication Instructions Recorded Confirmed Omeprazole [PriLOSEC] 20 mg PO HS 07/26/13 06/30/24 Atorvastatin [Lipitor] 40 mg PO HS 04/28/18 06/30/24 Pioglitazone [Actos] 30 mg PO DAILY 04/28/18 06/30/24 Vit C/E/Zn/Coppr/Lutein/Zeaxan 1 tab PO BID 04/28/18 06/30/24 [Preservision Areds 2 Softgel] metFORMIN HCL [Glucophage] 1,000 mg PO BID 04/28/18 06/30/24 Cholecalciferol [Vitamin D3 (25 25 mcg PO DAILY 06/30/24 06/30/24 Mcg = 1000 Iu)] Aurora-3/Dha/Epa/Fish Oil [Aurora-3 1 cap PO BID 06/30/24 06/30/24 Fish Oil 1,000 mg Sfgl] amLODIPine [Norvasc] 10 mg PO HS 06/30/24 06/30/24 hydroCHLOROthiazide [Hydrodiuril] 25 mg PO DAILY 06/30/24 06/30/24 lisinopriL [Zestril] 30 mg PO DAILY 06/30/24 06/30/24 Previous Rx's Medication Instructions Recorded HYDROcodone/APAP 5-325MG [[place] 5] 1 each PO Q6HR PRN #12 tab 07/05/24 Sennosides-Docusate Sodium 1 tab PO BID PRN #60 tablet 07/05/24 [Senokot-S] Allergies Allergy/AdvReac Type Severity Reaction Status Date / Time codeine AdvReac dizziness Verified 05/14/25 11:49 Review of Systems ROS Statement: Those systems with pertinent positive or pertinent negative responses have been documented in the HPI. ROS Other: All systems not noted in ROS Statement are negative. Past Medical History Past Medical History: Cancer, Diabetes Mellitus, GERD/Reflux, Hyperlipidemia, Hypertension Additional Past Medical History / Comment(s): HX COLOSTOMY R/T PERFORATED COLON AFTER COLONOSCOPY. HAS SINCE HAD REVERSAL. HX PROSTATE CANCER 2008 AND SKIN CA- 1993, macular degeneration, cataracts History of Any Multi-Drug Resistant Organisms: None Reported Past Surgical History: Bowel Resection, Hernia Repair, Prostate Surgery Additional Past Surgical History / Comment(s): COLOSTOMY W/REVERSAL, COLONSCOPY. RADICAL PROSTATECTOMY 2008 WITH RADIATION TX AFTER. Past Anesthesia/Blood Transfusion Reactions: No Reported Reaction Past Psychological History: No Psychological Hx Reported Smoking Status: Former smoker Past Alcohol Use History: None Reported Past Drug Use History: None Reported - Past Family History Father Family Medical History: Cancer Sister(s) Family Medical History: Cancer General Exam Limitations: no limitations General appearance: alert, in no apparent distress Head exam: Present: atraumatic, normocephalic, normal inspection Eye exam: Present: normal appearance, PERRL, EOMI. Absent: scleral icterus, conjunctival injection, periorbital swelling Neck exam: Present: normal inspection. Absent: tenderness, meningismus, lymphadenopathy Respiratory exam: Present: normal lung sounds bilaterally. Absent: respiratory distress, wheezes, rales, rhonchi, stridor Cardiovascular Exam: Present: regular rate, normal rhythm, normal heart sounds. Absent: systolic murmur, diastolic murmur, rubs, gallop, clicks GI/Abdominal exam: Present: soft. Absent: distended, tenderness, guarding, rebound, rigid Extremities exam: Present: full ROM, tenderness, normal capillary refill, other (DP and PT pulses 2+). Absent: pedal edema, joint swelling, calf tenderness Back exam: Present: normal inspection Neurological exam: Present: alert, oriented X3 Psychiatric exam: Present: normal affect, normal mood Skin exam: Present: warm, dry, intact, normal color. Absent: rash Course Vital Signs 06/30/24 06/30/24 10:25 13:41 Temperature 98 F Pulse Rate 94 70 Respiratory 18 18 Rate Blood Pressure 137/79 150/73 O2 Sat by Pulse 98 97 Oximetry Medical Decision Making - Medical Decision Making Was pt. sent in by a medical professional or institution (, NANDO, SENIOR IT BUSINESS ANALYST, urgent care, hospital, or penitentiary...) When possible be specific @ -Patient was sent in by orthopedics, Dr. Khan Did you speak to anyone other than the patient for history (EMS, parent, family, police, friend...)? What history was obtained from this source @ -No Did you review nursing and triage notes (agree or disagree)? Why? @ -I reviewed and agree with nursing and triage notes Were old charts reviewed (outside hosp., previous admission, EMS record, old EKG, old radiological studies, urgent care reports/EKG's, penitentiary records)? Report findings @ -No old charts were reviewed Differential Diagnosis (chest pain, altered mental status, abdominal pain women, abdominal pain men, vaginal bleeding, weakness, fever, dyspnea, syncope, headache, dizziness, GI bleed, back pain, seizure, CVA, palpatations, mental health, musculoskeletal)? @ -Differential Musculoskeletal Muscular strain, contusion, ligament sprain, fracture, arthritis, septic arthritis, bursitis, cellulitis, muscle spasm, nerve compression, DVT, arterial occlusion, herpes zoster, electrolyte abnormality, tumor.... This is not meant to be in all inclusive list EKG interpreted by me (3pts min.). @ -None X-rays interpreted by me (1pt min.). @ -None done CT interpreted by me (1pt min.). @ -None done U/S interpreted by me (1pt. min.). @ -None done What testing was considered but not performed or refused? (CT, X-rays, U/S, labs)? Why? @ -None What meds were considered but not given or refused? Why? @ -None Did you discuss the management of the patient with other professionals (professionals i.e. , NANDO, SENIOR IT BUSINESS ANALYST, lab, RT, psych nurse, social service assistant, complaint evaluation officer, teacher, chief development officer, nurse outreach case manager)? Give summary @ -No Was smoking cessation discussed for >3mins.? @ -No Was critical care preformed (if so, how long)? @ -No Were there social determinants of health that impacted care today? How? (Homelessness, low income, unemployed, alcoholism, drug addiction, transportation, low edu. Level, literacy, decrease access to med. care, usp, rehab)? @ -No Was there de-escalation of care discussed even if they declined (Discuss DNR or withdrawal of care, Hospice)? DNR status @ -No What co-morbidities impacted this encounter? (DM, HTN, Smoking, COPD, CAD, Cancer, CVA, ARF, Chemo, Hep., AIDS, mental health diagnosis, sleep apnea, morbid obesity)? @ -None Was patient admitted / discharged? Hospital course, mention meds given and route, prescriptions, significant lab abnormalities, going to OR and other pert inent info. @ -Admitted. Patient presented to the emergency department sent in by Dr. Khan orthopedics for right hip, low back pain, unable to ambulate. Patient states that he has been attempting to use his walker but has been unable to take more than 1-2 steps. Patient admitted to Dr. Khan who ordered MRI for the patient. Internal medicine consulted. Case discussed with Dr. Rush Undiagnosed new problem with uncertain prognosis? @ -No Drug Therapy requiring intensive monitoring for toxicity (Heparin, Nitro, Insulin, Cardizem)? @ -No Were any procedures done? @ -No Diagnosis/symptom? @ -Right hip pain, unable to ambulate Acute, or Chronic, or Acute on Chronic? @ -Acute Uncomplicated (without systemic symptoms) or Complicated (systemic symptoms)? @ -Uncomplicated Side effects of treatment? @ -No Exacerbation, Progression, or Severe Exacerbation? @ -No Poses a threat to life or bodily function? How? (Chest pain, [place], [place], pneumonia, PE, COPD, DKA, ARF, appy, cholecystitis, CVA, Diverticulitis, Homicidal, Suicidal, threat to staff... and all critical care pts) @ -No - Lab Data Result diagrams: 07/01/24 04:57 07/01/24 04:57 Lab Results 06/30/24 06/30/24 06/30/24 Range/Units 12:42 12:42 16:44 WBC 8.72 (4.50-10.00) 10*3/uL RBC 4.67 (4.40-5.60) 10*6/uL Hgb 13.6 (13.0-17.0) g/dL Hct 39.4 L (39.6-50.0) % MCV 84.4 (80.0-97.0) fL MCH 29.1 (27.0-32.0) pg MCHC 34.5 (32.0-37.0) g/dL RDW (11.5-14.5) % Plt Count 289 (140-440) 10*3/uL MPV 11.1 (9.5-12.2) fL Immature Gran % (Auto) 0.5 % Absolute Nucleated RBC % Neutrophils % 72.0 % Lymphocytes % 17.7 % Monocytes % 8.8 % Eosinophils % 0.5 % Basophils % 0.5 % Immature Gran # 0.04 (0.00-0.04) 10*3/uL Neutrophils # 6.29 (1.80-7.70) 10*3/uL Lymphocytes # 1.54 (0.90-5.00) 10*3/uL Monocytes # 0.77 (0.20-1.00) 10*3/uL Eosinophils # 0.04 (0.04-0.35) 10*3/uL Basophils # 0.04 (0.00-0.10) 10*3/uL NRBC/100 WBC Diff (0.00-0.01) X 10*3/uL Sodium 131 L (137-145) mmol/L Potassium 4.8 (3.5-5.1) mmol/L Chloride 97 L (98-107) mmol/L Carbon Dioxide 21 L (22-30) mmol/L Anion Gap 13 mmol/L BUN 26 H (9-20) mg/dL Creatinine 1.00 (0.66-1.25) mg/dL Est GFR (CKD-EPI) (>=60) Est GFR (CKD-EPI)AfAm 83 (>60 ml/min/1.73 sqM) Est GFR (CKD-EPI)NonAf 72 (>60 ml/min/1.73 sqM) BUN/Creatinine Ratio (12.00-20.00) Ratio Glucose 108 H (74-99) mg/dL POC Glucose (mg/dL) 166 H (70-110) mg/dL POC Glu Compliance Professional ID VENITA CARREON Estimated Ave Glu mg/dL mg/dL Hemoglobin A1c (<=6.0) % Calcium 9.4 (8.4-10.2) mg/dL Magnesium 1.9 (1.6-2.3) mg/dL Total Bilirubin 0.7 (0.2-1.3) mg/dL AST 33 (17-59) U/L ALT 46 (4-49) U/L Alkaline Phosphatase 71 (38-126) U/L Total Protein 7.6 (6.3-8.2) g/dL Albumin 4.7 (3.5-5.0) g/dL 06/30/24 07/01/24 07/01/24 Range/Units 20:35 04:57 04:57 WBC 7.24 (4.50-10.00) 10*3/uL RBC 4.47 (4.40-5.60) 10*6/uL Hgb 12.9 L (13.0-17.0) g/dL Hct 38.7 L (39.6-50.0) % MCV 86.6 (80.0-97.0) fL MCH 28.9 (27.0-32.0) pg MCHC 33.3 (32.0-37.0) g/dL RDW 14.1 (11.5-14.5) % Plt Count 293 (140-440) 10*3/uL MPV 10.7 (9.5-12.2) fL Immature Gran % (Auto) 0.40 % Absolute Nucleated RBC 0 % Neutrophils % 65.2 % Lymphocytes % 21.3 % Monocytes % 10.1 % Eosinophils % 2.6 % Basophils % 0.4 % Immature Gran # 0.03 (0.00-0.04) 10*3/uL Neutrophils # 4.72 (1.80-7.70) 10*3/uL Lymphocytes # 1.54 (0.90-5.00) 10*3/uL Monocytes # 0.73 (0.20-1.00) 10*3/uL Eosinophils # 0.19 (0.04-0.35) 10*3/uL Basophils # 0.03 (0.00-0.10) 10*3/uL NRBC/100 WBC Diff 0 (0.00-0.01) X 10*3/uL Sodium (137-145) mmol/L Potassium (3.5-5.1) mmol/L Chloride (98-107) mmol/L Carbon Dioxide (22-30) mmol/L Anion Gap mmol/L BUN (9-20) mg/dL Creatinine (0.66-1.25) mg/dL Est GFR (CKD-EPI) (>=60) Est GFR (CKD-EPI)AfAm (>60 ml/min/1.73 sqM) Est GFR (CKD-EPI)NonAf (>60 ml/min/1.73 sqM) BUN/Creatinine Ratio (12.00-20.00) Ratio Glucose (74-99) mg/dL POC Glucose (mg/dL) 105 (70-110) mg/dL POC Glu Compliance Professional ID Christie Nicole [address] Glu mg/dL 146 mg/dL Hemoglobin A1c 6.7 H (<=6.0) % Calcium (8.4-10.2) mg/dL Magnesium (1.6-2.3) mg/dL Total Bilirubin (0.2-1.3) mg/dL AST (17-59) U/L ALT (4-49) U/L Alkaline Phosphatase (38-126) U/L Total Protein (6.3-8.2) g/dL Albumin (3.5-5.0) g/dL 07/01/24 07/01/24 Range/Units 04:57 05:55 WBC (4.50-10.00) 10*3/uL RBC (4.40-5.60) 10*6/uL Hgb (13.0-17.0) g/dL Hct (39.6-50.0) % MCV (80.0-97.0) fL MCH (27.0-32.0) pg MCHC (32.0-37.0) g/dL RDW (11.5-14.5) % Plt Count (140-440) 10*3/uL MPV (9.5-12.2) fL Immature Gran % (Auto) % Absolute Nucleated RBC % Neutrophils % % Lymphocytes % % Monocytes % % Eosinophils % % Basophils % % Immature Gran # (0.00-0.04) 10*3/uL Neutrophils # (1.80-7.70) 10*3/uL Lymphocytes # (0.90-5.00) 10*3/uL Monocytes # (0.20-1.00) 10*3/uL Eosinophils # (0.04-0.35) 10*3/uL Basophils # (0.00-0.10) 10*3/uL NRBC/100 WBC Diff (0.00-0.01) X 10*3/uL Sodium 133 L (137-145) mmol/L Potassium 4.4 (3.5-5.1) mmol/L Chloride 99 (98-107) mmol/L Carbon Dioxide 21.9 (22-30) mmol/L Anion Gap 12.10 H mmol/L BUN 22.7 (9-20) mg/dL Creatinine 1.1 (0.66-1.25) mg/dL Est GFR (CKD-EPI) 69 (>=60) Est GFR (CKD-EPI)AfAm (>60 ml/min/1.73 sqM) Est GFR (CKD-EPI)NonAf (>60 ml/min/1.73 sqM) BUN/Creatinine Ratio 20.64 H (12.00-20.00) Ratio Glucose 116 H (74-99) mg/dL POC Glucose (mg/dL) 139 H (70-110) mg/dL POC Glu Compliance Professional ID Christie Nicole [address]imated Ave Glu mg/dL mg/dL Hemoglobin A1c (<=6.0) % Calcium 9.4 (8.4-10.2) mg/dL Magnesium (1.6-2.3) mg/dL Total Bilirubin (0.2-1.3) mg/dL AST (17-59) U/L ALT (4-49) U/L Alkaline Phosphatase (38-126) U/L Total Protein (6.3-8.2) g/dL Albumin (3.5-5.0) g/dL Disposition Clinical Impression: Acute right hip pain, Unable to ambulate Disposition: ADMITTED IP TO THIS HOSP Condition: Stable Is patient prescribed a controlled substance at d/c from ED?: No
[2024-06-30 12:59] LABS: ALT 46 U/L (4-49); AST 33 U/L (17-59); African American GFR (CKD) 83 (>60 ml/min/1.73 sqM); Albumin 4.7 g/dL (3.5-5.0); Alkaline Phosphatase 71 U/L (38-126); Anion Gap 13 mmol/L; Blood Urea Nitrogen 26 mg/dL (9-20); Calcium 9.4 mg/dL (8.4-10.2); Carbon Dioxide 21 mmol/L (22-30); Chloride 97 mmol/L (98-107); Glucose 108 mg/dL (74-99); Magnesium 1.9 mg/dL (1.6-2.3); Non-African American GFR(CKD) 72 (>60 ml/min/1.73 sqM); Potassium 4.8 mmol/L (3.5-5.1); Sodium 131 mmol/L (137-145); Total Bilirubin 0.7 mg/dL (0.2-1.3); Total Protein 7.6 g/dL (6.3-8.2)
[2024-06-30] MEDS ORDERED: DEXTROSE 50% SYRINGE 50 ML IVP PRN ×2 (13:47)
--- NOTE | 2024-06-30 13:53 | P.CONS ---
History of Present Illness - Reason for Consult Consult date: 06/30/24 Medical management Requesting physician: Kermit Khan - Chief Complaint Right Hip/thigh pain - History of Present Illness This is a 78-year-old gentleman referred to the ER [facility]. [facility] today related to progressive right hip pain exacerbated with movement, subsequent difficulty ambulating with a walker, in a patient with past medical history significant for prostate cancer with radical prostatectomy/radiation, hernia repair, bowel resection, colostomy with reversal, former nicotine dependent, obesity, diabetes mellitus, hypertension,and multiple other medical issues.Reports on completed an echo and JUJU and lower extremities. The day after his testing developed right hip/thigh/knee pain-previously had been on the left side, attributed it to the maneuvering/positioning secondary to his testing the day prior.(Echo reported normal LV function. JUJU: Right 1.28, left 1.25 -normal 0.9-1.4). Presented initially to the ER on 06/24/2024 with imaging performed. Hip x-ray reported no acute osseous abnormality of right hip. Lumbar spine reported scoliosis, facet degenerative changes of L4-5 and L5-S1. Mild facet changes present on the right mid lumbar spine. Disc heights are generally preserved. Posterior disc space narrowing L3-4 and possibly L4-5 may be present no spondylolisthesis. Vascular calcifications within the aorta. Patient was discharged on Tylenol, Flexeril with orders to follow-up with PCP/orthopedics for ongoing management. Completed hip MRI today reporting no MRI evidence for radio occult fracture right hip. Symmetric moderate axial joint space loss with mild acetabular spurring. Small to moderate size left greater than right hip joint effusions noted. Femoral flexion maintained bilaterally. Benign appearing lymph nodes in the bilateral groin region symmetric mild fluid signal greater trochanter level bilaterally consistent with mild insertional tendinosis. No free fluid in the pelvis. Afebrile, normal WBC, hemoglobin 13.6, platelets 289, sodium 131 potassium 4.8, bicarb 21, BUN 26, creatinine 1. Glucose 108. Magnesium 1.9, LFTs within normal limits. Systolic blood pressures ranging from 130s to 150s. Denies chest pain, palpitations or shortness of breath. Maintaining O2 sats in the mid to high 90s on room air. Denies lightheadedness, dizziness or focal deficits. Reports significant right hip through to right knee pain with minimal movement. Review of Systems ROS Statement: Those systems with pertinent positive or pertinent negative responses have been documented in the HPI. ROS Other: All systems not noted in ROS Statement are negative. Past Medical History Past Medical History: Cancer, Diabetes Mellitus, GERD/Reflux, Hyperlipidemia, Hypertension Additional Past Medical History / Comment(s): HX COLOSTOMY R/T PERFORATED COLON AFTER COLONOSCOPY. HAS SINCE HAD REVERSAL. HX PROSTATE CANCER 2008 AND SKIN CA- 1993, macular degeneration, cataracts History of Any Multi-Drug Resistant Organisms: None Reported Past Surgical History: Bowel Resection, Hernia Repair, Prostate Surgery Additional Past Surgical History / Comment(s): COLOSTOMY W/REVERSAL, COLONSCOPY. RADICAL PROSTATECTOMY 2008 WITH RADIATION TX AFTER. Past Anesthesia/Blood Transfusion Reactions: No Reported Reaction Past Psychological History: No Psychological Hx Reported Smoking Status: Former smoker Past Alcohol Use History: None Reported Past Drug Use History: None Reported - Past Family History Father Family Medical History: Cancer Sister(s) Family Medical History: Cancer Medications and Allergies Home Medications Medication Instructions Recorded Confirmed Type Omeprazole [PriLOSEC] 20 mg PO HS 07/26/13 06/30/24 History Atorvastatin [Lipitor] 40 mg PO HS 04/28/18 06/30/24 History Pioglitazone [Actos] 30 mg PO DAILY 04/28/18 06/30/24 History Vit C/E/Zn/Coppr/Lutein/Zeaxan 1 tab PO BID 04/28/18 06/30/24 History [Preservision Areds 2 Softgel] metFORMIN HCL [Glucophage] 1,000 mg PO BID 04/28/18 06/30/24 History Cyclobenzaprine [Flexeril] 10 mg PO Q8H PRN #15 tab 06/24/24 06/30/24 Rx Cholecalciferol [Vitamin D3 (25 25 mcg PO DAILY 06/30/24 06/30/24 History Mcg = 1000 Iu)] Hawks-3/Dha/Epa/Fish Oil [Hawks-3 1 cap PO BID 06/30/24 06/30/24 History Fish Oil 1,000 mg Sfgl] amLODIPine [Norvasc] 10 mg PO HS 06/30/24 06/30/24 History hydroCHLOROthiazide [Hydrodiuril] 25 mg PO DAILY 06/30/24 06/30/24 History lisinopriL [Zestril] 30 mg PO DAILY 06/30/24 06/30/24 History Allergies Allergy/AdvReac Type Severity Reaction Status Date / Time codeine AdvReac dizziness Verified 06/30/24 11:49 Physical Exam Vitals: Vital Signs Temp Pulse Resp BP Pulse Ox 06/30/24 13:41 70 18 150/73 97 06/30/24 10:25 98 F 94 18 137/79 98 Intake and Output 06/29/24 06/30/24 06/30/24 22:59 06:59 14:59 Other: Weight 99.79 kg PHYSICAL EXAM: VITAL SIGNS: [Reviewed] GENERAL: Well-developed elderly male, sitting up in bed, no acute distress HEENT: Normocephalic, atraumatic ,conjunctivae normal. eyes normal. MMM. NECK: Supple, no JVD. CARDIOVASCULAR: S1, S2 regular.No murmur RESPIRATION: Unlabored, equal air entry, essentially clear to auscultation with bilateral bases diminished. ABDOMEN: Soft, obese, nontender . No guarding. no masses palpable. Positive bowel sounds. LEGS: right hip,thigh soft, tender ,positive edema.Peripheral pulses intact. NERVOUS SYSTEM: Cranial N 2-12 grossly normal. No focal deficits. Skin: Warm and dry, no rash. Results CBC & Chem 7: 07/01/24 04:57 07/01/24 04:57 Labs: Abnormal Lab Results - Last 24 Hours (Table) 06/30/24 Range/Units 12:42 Sodium 131 L (137-145) mmol/L Chloride 97 L (98-107) mmol/L Carbon Dioxide 21 L (22-30) mmol/L BUN 26 H (9-20) mg/dL Glucose 108 H (74-99) mg/dL Assessment and Plan Assessment: Subacute right hip pain, x 1 week, possible arthritis .MRI reporting moderate- sized fat-containing left inguinal hernia, insertional tendinosis, left greater than right small to moderate size hip joint effusions. Morbid obesity, BMI 36 Diabetes mellitus, hemoglobin A1c pending Hypertension Hyperlipidemia Multiple abdominal surgeries Prior nicotine dependence History prostate cancer,radical prostatectomy and radiation Plan: Continue on current medication regime ,monitoring and symptomatic treatment. Pain management. PT/OT, potential subacute rehab. Home meds have been reviewed and resumed accordingly, including PPI for GI prophylaxis. Lovenox for DVT prophylaxis. venous Doppler pending. Consistent carb/heart healthy diet ,tight blood sugar control, NovoLog sliding scale and hemoglobin A1c ordered .follow-up closely with orthopedic surgery. The impression and plan of care has been dictated as directed. : I performed a history and examination of this patient, discussed the same with the dictator. I agree with the dictator's note ,documented as a scribe. Any additional findings or plans will be noted.
[2024-06-30 14:16] LABS: Basophils # (A) 0.04 10*3/uL (0.00-0.10); Basophils % (A) 0.5 %; Eosinophils # (A) 0.04 10*3/uL (0.04-0.35); Eosinophils % (A) 0.5 %; HCT 39.4 % (39.6-50.0); HGB 13.6 g/dL (13.0-17.0); Lymphocytes # (A) 1.54 10*3/uL (0.90-5.00); Lymphocytes % (A) 17.7 %; MCH 29.1 pg (27.0-32.0); MCHC 34.5 g/dL (32.0-37.0); MCV 84.4 fL (80.0-97.0); Mean Platelet Volume 11.1 fL (9.5-12.2); Monocytes # (A) 0.77 10*3/uL (0.20-1.00); Monocytes % (A) 8.8 %; Neutrophils # (A) 6.29 10*3/uL (1.80-7.70); Platelet Count 289 10*3/uL (140-440); RBC 4.67 10*6/uL (4.40-5.60); RDW 13.8 % (11.5-14.5); WBC 8.72 10*3/uL (4.50-10.00)
--- NOTE | 2024-06-30 15:10 | MR ---
EXAMINATION TYPE: MR hip RT wo con DATE OF EXAM: 06/30/2024 2:42 PM COMPARISON: Prior right hip x-ray June 2024 CLINICAL INDICATION: Male, 78 years old with history of severe hip pain, r/u fracture, Severe hip lela n, R/O fracture IV Contrast: cc (None if empty) Standard multiplanar, multisequence MRI departmental protocol Multiplanar, multisequence images of the pelvis focusing on the right hip were acquired without contr ast. FINDINGS: Symmetric moderate axial joint space loss with mild acetabular spurring. There are small to moderate size left greater than right hip joint effusions noted. Femoral flexion are maintained bila terally. No serpiginous diminished T1 signal is seen to suggest avascular process bilaterally. No la nena picious increased T2 signal or osseous edema in the right hip. Muscle bulk is symmetric and maintaine d bilaterally. There are benign-appearing lymph nodes in the bilateral groin region. No right-sided g roin hernia. There is moderate-sized fat containing left inguinal hernia. Symmetric mild fluid signal greater trochanter level bilaterally consistent with mild insertional tendinosis No free fluid in the pelvis. Prostate gland is small in size or surgically absent. No abnormal bowel dilatation. IMPRESSION: No MRI evidence for radio-occult fracture right hip. [facility], , 06/30/2024 3:08 PM
[2024-06-30] MEDS: VIT A,C & E-LUTEIN-MINERALS 1 EACH TAB PO SCH (15:43)
[2024-06-30] MEDS: PIOGLITAZONE 30 MG TAB PO SCH (15:43)
[2024-06-30 16:45] LABS: Glucose,Whole Blood 166 mg/dL (70-110)
[2024-06-30] MEDS: INSULIN LISPRO (HumaLOG) 100 UNIT/ML 10 mL VL SQ SCH (16:53)
--- NOTE | 2024-06-30 18:25 | US ---
EXAMINATION TYPE: US venous doppler duplex LE RT DATE OF EXAM: 06/30/2024 6:18 PM COMPARISON: NONE CLINICAL INDICATION: Male, 78 years old with history of check sore leg/ hip; patient states right leg / hip pain cant walk. no hx dvt. not on thinners, Pain TECHNIQUE: The lower extremity deep venous system is examined utilizing real time linear array sonog omero with graded compression, color doppler sonography, and spectral doppler. SIDE PERFORMED: Right FINDINGS: VESSELS IMAGED: Common Femoral Vein Deep Femoral Vein Greater Saphenous Vein * Femoral Vein Popliteal Vein Small Saphenous Vein * Proximal Calf Veins (* superficial vessels) Right Leg: Negative for DVT, Color Doppler imaging shows patency of the vessels. Spectral waveforms are within normal limits. patient unable to tolerate compression at the CFV/ GSV IMPRESSION: No ultrasound evidence for deep venous thrombosis. [facility], , 06/30/2024 6:23 PM
[2024-06-30 20:37] LABS: Glucose,Whole Blood 105 mg/dL (70-110)
[2024-06-30] MEDS: ATORVASTATIN 40 MG TAB PO SCH (22:34)
[2024-06-30] MEDS: PANTOPRAZOLE 40 MG TABLET PO SCH (22:34)
[2024-06-30] MEDS: amLODIPine 10 MG TAB PO SCH (22:34)
[2024-07-01 05:57] LABS: Glucose,Whole Blood 139 mg/dL (70-110)
--- NOTE | 2024-07-01 08:09 | P.HPOR ---
History of Present Illness The patient is a 78-year-old male with multiple medical problems who was admitted under my care with intractable right hip pain. According to the patient he has had several weeks of progressively worsening right hip pain. He was seen in the ER here several weeks ago for intractable hip pain. X-rays of his hip and lumbar spine were taken and showed no acute fractures. Due to his difficulty ambulating he was given the option of discharging home or being admitted for pain control and possible rehab placement. The patient elected to be discharged to home. Over the interval time he has had increasing pain in his right hip. He presented to my office yesterday with a walker. He had intractable 10 out of 10 pain in his hip. He felt unsafe at home and so was sent through the ER to be admitted for pain control and an MRI. This morning his pain is better at rest. He still complains of pain with movement of the hip. Past Medical History Past Medical History: Cancer, Diabetes Mellitus, GERD/Reflux, Hyperlipidemia, Hypertension Additional Past Medical History / Comment(s): HX COLOSTOMY R/T PERFORATED COLON AFTER COLONOSCOPY. HAS SINCE HAD REVERSAL. HX PROSTATE CANCER 2008 AND SKIN CA- 1993, macular degeneration, cataracts History of Any Multi-Drug Resistant Organisms: None Reported Past Surgical History: Bowel Resection, Hernia Repair, Prostate Surgery Additional Past Surgical History / Comment(s): COLOSTOMY W/REVERSAL, COLONSCOPY. RADICAL PROSTATECTOMY 2008 WITH RADIATION [place] AFTER. Past Anesthesia/Blood Transfusion Reactions: No Reported Reaction Past Psychological History: No Psychological Hx Reported Smoking Status: Former smoker Past Alcohol Use History: None Reported Past Drug Use History: None Reported - Past Family History Father Family Medical History: Cancer Sister(s) Family Medical History: Cancer Medications and Allergies Home Medications Medication Instructions Recorded Confirmed Type Omeprazole [PriLOSEC] 20 mg PO HS 07/26/13 06/30/24 History Atorvastatin [Lipitor] 40 mg PO HS 04/28/18 06/30/24 History Pioglitazone [Actos] 30 mg PO DAILY 04/28/18 06/30/24 History Vit C/E/Zn/Coppr/Lutein/Zeaxan 1 tab PO BID 04/28/18 06/30/24 History [Preservision Areds 2 Softgel] metFORMIN HCL [Glucophage] 1,000 mg PO BID 04/28/18 06/30/24 History Cyclobenzaprine [Flexeril] 10 mg PO Q8H PRN #15 tab 06/24/24 06/30/24 Rx Cholecalciferol [Vitamin D3 (25 25 mcg PO DAILY 06/30/24 06/30/24 History Mcg = 1000 Iu)] Itmann-3/Dha/Epa/Fish Oil [Itmann-3 1 cap PO BID 06/30/24 06/30/24 History Fish Oil 1,000 mg Sfgl] amLODIPine [Norvasc] 10 mg PO HS 06/30/24 06/30/24 History hydroCHLOROthiazide [Hydrodiuril] 25 mg PO DAILY 06/30/24 06/30/24 History lisinopriL [Zestril] 30 mg PO DAILY 06/30/24 06/30/24 History Allergies Allergy/AdvReac Type Severity Reaction Status Date / Time codeine AdvReac dizziness Verified 06/30/24 11:49 Physical Examination Patient is resting comfortably in bed. He is alert and able to answer questions. His head is normocephalic and atraumatic. His abdomen is mildly obese. A focused exam of the right lower extremity was conducted. He has pain with passive range of motion of the hip. His thigh and calf are soft. Motor and sensory function are intact in the right hip. Results X-rays of the right hip from his ER visit show no fractures and mild to moderate arthritis. MRI from yesterday shows no acute fractures in the hip or pelvis. There is moderate right hip arthritis and a small effusion. - Labs Labs: Abnormal Lab Results - Last 24 Hours (Table) 06/30/24 06/30/24 06/30/24 Range/Units 12:42 12:42 16:44 Hct 39.4 L (39.6-50.0) % Sodium 131 L (137-145) mmol/L Chloride 97 L (98-107) mmol/L Carbon Dioxide 21 L (22-30) mmol/L BUN 26 H (9-20) mg/dL Glucose 108 H (74-99) mg/dL POC Glucose (mg/dL) 166 H (70-110) mg/dL 07/01/24 Range/Units 05:55 Hct (39.6-50.0) % Sodium (137-145) mmol/L Chloride (98-107) mmol/L Carbon Dioxide (22-30) mmol/L BUN (9-20) mg/dL Glucose (74-99) mg/dL POC Glucose (mg/dL) 139 H (70-110) mg/dL H & H 06/30/24 Range/Units 12:42 Hgb 13.6 (13.0-17.0) g/dL Hct 39.4 L (39.6-50.0) % Result Diagrams: 06/30/24 12:42 06/30/24 12:42 Assessment and Plan Assessment: Intractable right hip pain, likely exacerbation of underlying moderate hip arthritis No occult hip fracture on MRI Plan: The patient's MRI from yesterday shows no acute fractures and moderate arthritis. We discussed that his symptoms are likely attributable to an exacerbation of arthritis. We will get him up with therapy this morning and see how he does. If his pain is improved and he feels safe to discharge home we will plan on discharging him home for follow-up in the office to discuss treatment of his hip arthritis. If he continues having difficulty ambulating we discussed the possibility of discharge to rehab. Time with Patient: Greater than 30
[2024-07-01 08:17] LABS: BUN/Creat Ratio 20.64 Ratio (12.00-20.00); Blood Urea Nitrogen 22.7 mg/dL (9.0-27.0); Calcium 9.4 mg/dL (8.7-10.3); Carbon Dioxide 21.9 mmol/L (21.6-31.8); Chloride 99 mmol/L (96-109); Glucose 116 mg/dL (70-110); Potassium 4.4 mmol/L (3.5-5.5); Sodium 133 mmol/L (135-145)
[2024-07-01 08:25] LABS: Basophils # (A) 0.03 X 10*3/uL (0.00-0.10); Basophils % (A) 0.4 %; Eosinophils # (A) 0.19 X 10*3/uL (0.04-0.35); Eosinophils % (A) 2.6 %; HCT 38.7 % (39.6-50.0); HGB 12.9 g/dL (13.0-17.0); Lymphocytes # (A) 1.54 X 10*3/uL (0.90-5.00); Lymphocytes % (A) 21.3 %; MCH 28.9 pg (27.0-32.0); MCHC 33.3 g/dL (32.0-37.0); MCV 86.6 FL (80.0-97.0); Mean Platelet Volume 10.7 FL (9.5-12.2); Monocytes # (A) 0.73 X 10*3/uL (0.20-1.00); Monocytes % (A) 10.1 %; NRBC Per 100 WBC 0 X 10*3/uL (0.00-0.01); Neutrophils # (A) 4.72 X 10*3/uL (1.80-7.70); Neutrophils % (A) 65.2 %; Platelet Count 293 X 10*3/uL (140-440); RBC 4.47 X 10*6/uL (4.40-5.60); RDW 14.1 % (11.5-14.5); WBC 7.24 X 10*3/uL (4.50-10.00)
[2024-07-01] MEDS: HYDROcodone/APAP 5-325MG 1 EACH TAB PO PRN (08:59)
--- NOTE | 2024-07-01 09:57 | P.PN ---
Subjective Progress Note Date: 07/01/24 - History of Present Illness 06/30/2024 This is a 78-year-old gentleman referred to the ER per [facility]. [facility] for evaluation today related to progressive right hip pain exacerbated with movement, subsequent difficulty ambulating with a walker, in a patient with past medical history significant for prostate cancer with radical prostatectomy/radiation, hernia repair, bowel resection, colostomy with reversal, former nicotine dependent, obesity, diabetes mellitus, hypertension,and multiple other medical issues.Reports on completed an echo and JUJU and lower extremities. The day after his testing developed right hip/thigh/knee pain-previously had been on the left side, attributed it to the maneuvering/positioning secondary to his testing the day prior.(Echo reported normal LV function. JUJU: Right 1.28, left 1.25 -normal 0.9-1.4). Presented initially to the ER on 06/24/2024 with imaging performed. Hip x-ray reported no acute osseous abnormality of right hip. Lumbar spine reported scoliosis, facet degenerative changes of L4-5 and L5-S1. Mild facet changes present on the right mid lumbar spine. Disc heights are generally preserved. Posterior disc space narrowing L3-4 and possibly L4-5 may be present no spondylolisthesis. Vascular calcifications within the aorta. Patient was discharged on Tylenol, Flexeril with orders to follow-up with PCP/orthopedics for ongoing management. Completed hip MRI today reporting no MRI evidence for radio occult fracture right hip. Symmetric moderate axial joint space loss with mild acetabular spurring. Small to moderate size left greater than right hip joint effusions noted. Femoral flexion maintained bilaterally. Benign appearing lymph nodes in the bilateral groin region symmetric mild fluid signal greater trochanter level bilaterally consistent with mild insertional tendinosis. No free fluid in the pelvis. Afebrile, normal WBC, hemoglobin 13.6, platelets 289, sodium 131 potassium 4.8, bicarb 21, BUN 26, creatinine 1. Glucose 108. Magnesium 1.9, LFTs within normal limits. Systolic blood pressures ranging from 130s to 150s. Denies chest pain, palpitations or shortness of breath. Maintaining O2 sats in the mid to high 90s on room air. Denies lightheadedness, dizziness or focal deficits. Reports significant right hip through to right knee pain with minimal movement. 07/01/2024 recently medicated for pain, pain currently controlled at rest. Today reports lateral thigh pain PT/OT pending. Venous Doppler of the reported negative for DVT. denies chest pain, palpitations or shortness of breath. Maintaining O2 sats in the 90s on room air. Objective - Vital Signs Vital signs: Vital Signs Temp 97.7 F 07/01/24 07:50 Pulse 61 07/01/24 07:50 Resp 17 07/01/24 07:50 BP 154/71 07/01/24 07:50 Pulse Ox 95 07/01/24 07:50 FiO2 Intake & Output 06/30/24 07/01/24 07/01/24 18:59 06:59 18:59 Intake Total 2225 Output Total 150 3550 400 Balance -150 -1325 -400 Weight 99.79 kg Intake: Oral 2225 Output: Urine 150 3550 400 Other: Voiding Method Urinal # Voids 1 3 # Bowel Movements 1 - Exam PHYSICAL EXAM: VITAL SIGNS: [Reviewed] GENERAL: Alert and oriented x 3, sitting up in bed, no acute distress HEENT: Normocephalic, atraumatic ,conjunctivae normal. eyes normal. MMM. NECK: Supple, no JVD. CARDIOVASCULAR: S1, S2 regular.No murmur RESPIRATION: Unlabored, equal air entry, essentially clear to auscultation with bilateral bases diminished. ABDOMEN: Soft, obese, nontender . No guarding. no masses palpable. Positive bowel sounds. LEGS: right hip,thigh soft, tender ,positive edema.Peripheral pulses intact. NERVOUS SYSTEM: Cranial N 2-12 grossly normal. No focal deficits. Skin: Warm and dry, no rash. - Labs CBC & Chem 7: 07/01/24 04:57 07/01/24 04:57 Labs: Abnormal Lab Results - Last 24 Hours (Table) 06/30/24 06/30/24 06/30/24 Range/Units 12:42 12:42 16:44 Hgb (13.0-17.0) g/dL Hct 39.4 L (39.6-50.0) % Sodium 131 L (137-145) mmol/L Chloride 97 L (98-107) mmol/L Carbon Dioxide 21 L (22-30) mmol/L Anion Gap (4.00-12.00) mmol/L BUN 26 H (9-20) mg/dL BUN/Creatinine Ratio (12.00-20.00) Ratio Glucose 108 H (74-99) mg/dL POC Glucose (mg/dL) 166 H (70-110) mg/dL Hemoglobin A1c (<=6.0) % 07/01/24 07/01/24 07/01/24 Range/Units 04:57 04:57 04:57 Hgb 12.9 L (13.0-17.0) g/dL Hct 38.7 L (39.6-50.0) % Sodium 133 L (137-145) mmol/L Chloride (98-107) mmol/L Carbon Dioxide (22-30) mmol/L Anion Gap 12.10 H (4.00-12.00) mmol/L BUN (9-20) mg/dL BUN/Creatinine Ratio 20.64 H (12.00-20.00) Ratio Glucose 116 H (74-99) mg/dL POC Glucose (mg/dL) (70-110) mg/dL Hemoglobin A1c 6.7 H (<=6.0) % 07/01/24 Range/Units 05:55 Hgb (13.0-17.0) g/dL Hct (39.6-50.0) % Sodium (137-145) mmol/L Chloride (98-107) mmol/L Carbon Dioxide (22-30) mmol/L Anion Gap (4.00-12.00) mmol/L BUN (9-20) mg/dL BUN/Creatinine Ratio (12.00-20.00) Ratio Glucose (74-99) mg/dL POC Glucose (mg/dL) 139 H (70-110) mg/dL Hemoglobin A1c (<=6.0) % Assessment and Plan Assessment: Subacute right hip pain, x 1 week, possible arthritis .MRI reporting moderate- sized fat-containing left inguinal hernia, insertional tendinosis, left greater than right small to moderate size hip joint effusions. Morbid obesity, BMI 36 Diabetes mellitus, hemoglobin A1c 6.7 Hypertension Hyperlipidemia Multiple abdominal surgeries Prior nicotine dependence History prostate cancer,radical prostatectomy and radiation Plan: Continue on current medication regime ,monitoring and symptomatic treatment. Pain management as per admitting. PT/OT evaluation pending.discharge planning in progress as per orthopedic surgery. Follow-up with PCP in 1 week. The impression and plan of care has been dictated as directed. : I performed a history and examination of this patient, discussed the same with the dictator. I agree with the dictator's note ,documented as a scribe. Any additional findings or plans will be noted.
[2024-07-01 11:49] LABS: Glucose,Whole Blood 135 mg/dL (70-110)
[2024-07-01] MEDS: ENOXAPARIN 40 MG/0.4 ML SYRINGE SQ SCH (12:21)
[2024-07-01 17:00] LABS: Glucose,Whole Blood 107 mg/dL (70-110)
[2024-07-01 19:36] LABS: Glucose,Whole Blood 129 mg/dL (70-110)
[2024-07-02 06:16] LABS: Glucose,Whole Blood 124 mg/dL (70-110)
--- NOTE | 2024-07-02 10:03 | P.PN ---
Subjective Progress Note Date: 07/02/24 - History of Present Illness 06/30/2024 This is a 78-year-old gentleman referred to the ER [facility] Patient had presented [facility] for evaluation today related to progressive right hip pain exacerbated with movement, subsequent difficulty ambulating with a walker, in a patient with past medical history significant for prostate cancer with radical prostatectomy/radiation, hernia repair, bowel resection, colostomy with reversal, former nicotine dependent, obesity, diabetes mellitus, hypertension,and multiple other medical issues.Reports on completed an echo and JUJU and lower extremities. The day after his testing developed right hip/thigh/knee pain-previously had been on the left side, attributed it to the maneuvering/positioning secondary to his testing the day prior.(Echo reported normal LV function. JUJU: Right 1.28, left 1.25 -normal 0.9-1.4). Presented initially to the ER on 06/24/2024 with imaging performed. Hip x-ray reported no acute osseous abnormality of right hip. Lumbar spine reported scoliosis, facet degenerative changes of L4-5 and L5-S1. Mild facet changes present on the right mid lumbar spine. Disc heights are generally preserved. Posterior disc space narrowing L3-4 and possibly L4-5 may be present no spondylolisthesis. Vascular calcifications within the aorta. Patient was discharged on Tylenol, Flexeril with orders to follow-up with PCP/orthopedics for ongoing management. Completed hip MRI today reporting no MRI evidence for radio occult fracture right hip. Symmetric moderate axial joint space loss with mild acetabular spurring. Small to moderate size left greater than right hip joint effusions noted. Femoral flexion maintained bilaterally. Benign appearing lymph nodes in the bilateral groin region symmetric mild fluid signal greater trochanter level bilaterally consistent with mild insertional tendinosis. No free fluid in the pelvis. Afebrile, normal WBC, hemoglobin 13.6, platelets 289, sodium 131 potassium 4.8, bicarb 21, BUN 26, creatinine 1. Glucose 108. Magnesium 1.9, LFTs within normal limits. Systolic blood pressures ranging from 130s to 150s. Denies chest pain, palpitations or shortness of breath. Maintaining O2 sats in the mid to high 90s on room air. Denies lightheadedness, dizziness or focal deficits. Reports significant right hip through to right knee pain with minimal movement. 07/01/2024 recently medicated for pain, pain currently controlled at rest. Today reports lateral thigh pain PT/OT pending. Venous Doppler of the reported negative for DVT. denies chest pain, palpitations or shortness of breath. Maintaining O2 sats in the 90s on room air. 07/02/2024 reports better pain control with current management as per orthopedic surgery. Denies chest pain, palpitations or shortness of breath. Hemodynamically stable. Evaluated by PT recommending subacute rehab at discharge. Discharge planning in progress as per primary/orthopedic surgery. Objective - Vital Signs Vital signs: Vital Signs Temp 98.4 F 07/02/24 07:22 Pulse 60 07/02/24 07:22 Resp 18 07/02/24 07:22 BP 143/78 07/02/24 07:22 Pulse Ox 97 07/02/24 07:22 FiO2 Intake & Output 07/01/24 07/02/24 07/02/24 18:59 06:59 18:59 Intake Total 360 240 Output Total 850 1200 Balance -850 -840 240 Intake: Oral 360 240 Output: Urine 850 1200 Other: Voiding Method Bedside Commode Urinal # Voids 3 # Bowel Movements 0 - Exam PHYSICAL EXAM: VITAL SIGNS: [Reviewed] GENERAL: Alert and oriented x 3, sitting up in bed, no acute distress HEENT: Normocephalic, atraumatic ,conjunctivae normal. MMM. NECK: Supple, no JVD. CARDIOVASCULAR: S1, S2 regular.No murmur RESPIRATION: Unlabored, equal air entry, essentially clear to auscultation with bilateral bases diminished. ABDOMEN: Soft, obese, nontender . No guarding. No rigidity, Positive bowel sounds. LEGS: right hip,thigh soft, tender ,positive edema.Peripheral pulses intact. NERVOUS SYSTEM: Cranial N 2-12 grossly normal. No focal deficits. Skin: Warm and dry, no rash. - Labs CBC & Chem 7: 07/01/24 04:57 07/01/24 04:57 Labs: Abnormal Lab Results - Last 24 Hours (Table) 07/01/24 07/01/24 07/02/24 Range/Units 11:43 19:35 06:15 POC Glucose (mg/dL) 135 H 129 H 124 H (70-110) mg/dL Assessment and Plan Assessment: Subacute right hip pain, x 1 week, possible arthritis .MRI reporting moderate- sized fat-containing left inguinal hernia, insertional tendinosis, left greater than right small to moderate size hip joint effusions. Morbid obesity, BMI 36 Diabetes mellitus, hemoglobin A1c 6.7 Hypertension Hyperlipidemia Multiple abdominal surgeries Prior nicotine dependence History prostate cancer,radical prostatectomy and radiation Plan: Continue on current medication regime ,monitoring and symptomatic treatment. Pain management as per admitting/orthopedic surgeon. PT/OT. medically cleared for discharge -discharge planning in progress as per primary/orthopedic surgery. The impression and plan of care has been dictated as directed. : I performed a history and examination of this patient, discussed the same with the dictator. I agree with the dictator's note ,documented as a scribe. Any additional findings or plans will be noted.
--- NOTE | 2024-07-02 10:13 | P.PN ---
Subjective Progress Note Date: 07/02/24 The patient is a 78-year-old male with multiple medical problems who was admitted under my care with intractable right hip pain. According to the patient he has had several weeks of progressively worsening right hip pain. He was seen in the ER here several weeks ago for intractable hip pain. X-rays of h is hip and lumbar spine were taken and showed no acute fractures. Due to his difficulty ambulating he was given the option of discharging home or being admitted for pain control and possible rehab placement. The patient elected to be discharged to home. Over the interval time he has had increasing pain in his right hip. He presented to my office yesterday with a walker. He had intractable 10 out of 10 pain in his hip. He felt unsafe at home and so was sent through the ER to be admitted for pain control and an MRI. This morning his pain is better at rest. He still complains of pain with movement of the hip. 07/02/2024 progress. No acute events overnight. Patient is doing well this m orning. Patient denies any pain this morning. Patient states they have right quadricep pain. Patient worked with physical therapy and is determined the patient will need discharge to rehab at time of discharge. They deny chest pain or shortness of breath. Objective - Vital Signs Vital signs: Vital Signs Temp 98.4 F 07/02/24 07:22 Pulse 60 07/02/24 07:22 Resp 18 07/02/24 07:22 BP 143/78 07/02/24 07:22 Pulse Ox 97 07/02/24 07:22 FiO2 Intake & Output 07/01/24 07/02/24 07/02/24 18:59 06:59 18:59 Intake Total 360 240 Output Total 850 1200 Balance -850 -840 240 Intake: Oral 360 240 Output: Urine 850 1200 Other: Voiding Method Bedside Commode Urinal # Voids 3 # Bowel Movements 0 - Exam Patient is resting comfortably in chair. He is alert and able to answer questions. His head is normocephalic and atraumatic. His abdomen is mildly obese. A focused exam of the right lower extremity was conducted. He has mild pain with passive range of motion of the hip. His thigh and calf are soft. Motor and sensory function are intact in the right hip. - Labs CBC & Chem 7: 07/01/24 04:57 07/01/24 04:57 Labs: Abnormal Lab Results - Last 24 Hours (Table) 07/01/24 07/01/24 07/02/24 Range/Units 11:43 19:35 06:15 POC Glucose (mg/dL) 135 H 129 H 124 H (70-110) mg/dL Assessment and Plan Assessment: Intractable right hip pain, likely exacerbation of underlying moderate hip arthritis No occult hip fracture on MRI Plan: The patient's MRI from 05/31/2024 shows no acute fractures and moderate arthritis. We discussed that his symptoms are likely attributable to an exacerbation of arthritis. Physical therapy worked with the patient and it was determined the patient will need discharge to rehab at time of discharge. Per Medicare patient needs to stay until Friday. Patient was made inpatient 07/01/2024 Continue pain control. Continue physical therapy Plan discharge to rehab Friday.
[2024-07-02 11:40] LABS: Glucose,Whole Blood 116 mg/dL (70-110)
[2024-07-02 16:35] LABS: Glucose,Whole Blood 108 mg/dL (70-110)
[2024-07-02 21:01] LABS: Glucose,Whole Blood 120 mg/dL (70-110)
[2024-07-03 06:51] LABS: Glucose,Whole Blood 142 mg/dL (70-110)
--- NOTE | 2024-07-03 08:13 | P.PN ---
Subjective Patient is doing better this morning. He states the pain in his hip and thigh is improved. He is complaining of some low back pain but thinks this may be from laying in bed. Objective - Vital Signs Vital signs: Vital Signs Temp 97.9 F 07/03/24 07:29 Pulse 65 07/03/24 07:29 Resp 19 07/03/24 07:29 BP 147/81 07/03/24 07:29 Pulse Ox 95 07/03/24 07:29 FiO2 Intake & Output 07/02/24 07/03/24 07/03/24 18:59 06:59 18:59 Intake Total 1380 Output Total 400 1600 Balance 980 -1600 Intake: Oral 1380 Output: Urine 400 1600 Other: Voiding Method Bedside Commode Bedside Commode Urinal Urinal # Voids 1 - Exam The patient is sitting up in a chair at bedside. He is alert and able to answer questions. He has some pain with passive range of motion of the hip. He is able to perform a straight leg raise. Motor and sensory function are intact. - Labs CBC & Chem 7: 07/01/24 04:57 07/01/24 04:57 Labs: Abnormal Lab Results - Last 24 Hours (Table) 07/02/24 07/02/24 07/03/24 Range/Units 11:38 20:59 06:47 POC Glucose (mg/dL) 116 H 120 H 142 H (70-110) mg/dL Assessment and Plan Assessment: Exacerbation of right hip arthritis Plan: The patient is slowly improving. Plan is for discharge Friday to rehab. In the interim continue treatment as outlined previously. Encourage mobilization with physical therapy. Internal medicine for medical management.
[2024-07-03 11:29] LABS: Glucose,Whole Blood 134 mg/dL (70-110)
[2024-07-03 16:36] LABS: Glucose,Whole Blood 109 mg/dL (70-110)
[2024-07-03 21:19] LABS: Glucose,Whole Blood 139 mg/dL (70-110)
[2024-07-04 06:26] LABS: Glucose,Whole Blood 118 mg/dL (70-110)
--- NOTE | 2024-07-04 09:17 | P.PN ---
Progress Note - Text No acute events. The patient continues to improve. His pain is getting better. At the time of my evaluation is in the bathroom. He has no complaints. Continue treatment as outlined yesterday. Will plan for discharge to rehab tomorrow.
--- NOTE | 2024-07-04 11:31 | P.PN ---
Subjective Progress Note Date: 07/04/24 Principal diagnosis: Right hip pain Patient is awake alert oriented x 3 vital signs are stable hip pain has improved significantly, PT recommending subacute rehab at discharge Objective - Vital Signs Vital signs: Vital Signs Temp 97.5 F L 07/04/24 07:15 Pulse 59 L 07/04/24 07:15 Resp 18 07/04/24 07:15 BP 159/75 07/04/24 07:15 Pulse Ox 96 07/04/24 07:15 FiO2 Intake & Output 07/03/24 07/04/24 07/04/24 18:59 06:59 18:59 Output Total 1650 Balance -1650 Output: Urine 1650 Other: Voiding Method Urinal Urinal Urinal # Voids 5 1 # Bowel Movements 2 - Exam General: [Patient awake, alert and oriented times 3. Patient in no acute distress.] HEENT: [PERRL. EOMI. No pharyngeal erythema or exudate.] Neck: [No adenopathy.] Cardiac: [Heart regular in rate and rhythm. No S3. No S4. No clicks, rubs. No murmur.] Lungs: [Clear to auscultation bilaterally.] Abdomen: [No mass. No organomegaly. Bowel sounds presnt and normoactive in all 4 quadrants.] Extremes: [No edema no cyanosis no claudication normal pulses] : Normal male genitalia Musculoskeletal: [No joint erythema, edema or tenderness.] Skin: [No rash.] Neurologic: [No lateralizing deficits. CN II - XII grossly intact.] Lymphatic: [No adenopathy.] - Labs CBC & Chem 7: 07/01/24 04:57 07/01/24 04:57 Labs: Abnormal Lab Results - Last 24 Hours (Table) 07/03/24 07/03/24 07/04/24 Range/Units 11:28 21:17 06:24 POC Glucose (mg/dL) 134 H 139 H 118 H (70-110) mg/dL Assessment and Plan (1) Acute right hip pain Current Visit: Yes Status: Acute Code(s): M25.551 - PAIN IN RIGHT HIP SNOMED Code(s): 25657857 (2) Unable to ambulate Current Visit: Yes Status: Acute Code(s): R26.2 - DIFFICULTY IN WALKING, NOT ELSEWHERE CLASSIFIED SNOMED Code(s): 064693829 (3) Lower extremity edema Current Visit: No Status: Acute Code(s): R60.0 - LOCALIZED EDEMA SNOMED Code(s): 388058431 Plan: Patient improving Discharge plan subacute rehab tomorrow Time with Patient: Greater than 30
[2024-07-04 11:38] LABS: Glucose,Whole Blood 101 mg/dL (70-110)
[2024-07-04 17:12] LABS: Glucose,Whole Blood 94 mg/dL (70-110)
[2024-07-04 20:25] LABS: Glucose,Whole Blood 159 mg/dL (70-110)
[2024-07-05 06:26] LABS: Glucose,Whole Blood 125 mg/dL (70-110)
--- NOTE | 2024-07-05 08:09 | P.DS ---
Providers Date of admission: 07/01/24 11:11 Attending physician: Kermit Khan Consults: 06/30/24 11:19 Consult Physician Routine Consulting Provider: Efrain Musa Consult Reason/Comments: medical management Do you want consulting provider notified?: Yes Primary care physician: Efrain Musa [facility] Course: 07/01/2024 HPI: The patient is a 78-year-old male with multiple medical problems who was admitted under Dr. Khan with intractable right hip pain. According to the patient he has had several weeks of progressively worsening right hip pain. He was seen in the ER here several weeks ago for intractable hip pain. X-rays of his hip and lumbar spine were taken and showed no acute fractures. Due to his difficulty ambulating he was given the option of discharging home or being admitted for pain control and possible rehab placement. The patient elected to be discharged to home. Over the interval time he has had increasing pain in his right hip. [facility] with a walker. He had intractable 10 out of 10 pain in his hip. He felt unsafe at home and so was sent through the ER to be admitted for pain control and an MRI. This morning his pain is better at rest. He still complains of pain with movement of the hip. Patient's 06/30/2024 MRI showed no acute fractures with moderate arthritis of the hip. Patient's venous Doppler from 06/30/2024 showed no visible DVT. His symptoms were attributed to most likely exacerbation of osteoarthritis. He worked with physical therapy and it was determined he was unsafe to be discharged home. He was kept for pain control. His pain has been controlled. Plan to discharge to subacute rehab today. Assessment: Subacute right hip pain Right hip osteoarthritis Unable to ambulate Lower extremity edema Multiple medical problems Patient Condition at Discharge: Stable Plan - Discharge Summary Discharge Rx Participant: Yes New Discharge Prescriptions: No Action Omeprazole [PriLOSEC] 20 mg PO HS metFORMIN HCL [Glucophage] 1,000 mg PO BID Vit C/E/Zn/Coppr/Lutein/Zeaxan [Preservision Areds 2 Softgel] 1 tab PO BID Pioglitazone [Actos] 30 mg PO DAILY Atorvastatin [Lipitor] 40 mg PO HS Cyclobenzaprine [Flexeril] 10 mg PO Q8H PRN #15 tab PRN Reason: Spasms Kiln-3/Dha/Epa/Fish Oil [Kiln-3 Fish Oil 1,000 mg Sfgl] 1 cap PO BID hydroCHLOROthiazide [Hydrodiuril] 25 mg PO DAILY Cholecalciferol [Vitamin D3 (25 Mcg = 1000 Iu)] 25 mcg PO DAILY lisinopriL [Zestril] 30 mg PO DAILY amLODIPine [Norvasc] 10 mg PO HS Discharge Medication List Omeprazole [PriLOSEC] 20 mg PO HS 07/26/13 [History] Atorvastatin [Lipitor] 40 mg PO HS 04/28/18 [History] Pioglitazone [Actos] 30 mg PO DAILY 04/28/18 [History] Vit C/E/Zn/Coppr/Lutein/Zeaxan [Preservision Areds 2 Softgel] 1 tab PO BID 04/28/18 [History] metFORMIN HCL [Glucophage] 1,000 mg PO BID 04/28/18 [History] Cyclobenzaprine [Flexeril] 10 mg PO Q8H PRN #15 tab 06/24/24 [Rx] Cholecalciferol [Vitamin D3 (25 Mcg = 1000 Iu)] 25 mcg PO DAILY 06/30/24 [History] Kiln-3/Dha/Epa/Fish Oil [[place]il[place]-3 Fish Oil 1,000 mg Sfgl] 1 cap PO BID 06/30/24 [History] amLODIPine [Norvasc] 10 mg PO HS 06/30/24 [History] hydroCHLOROthiazide [Hydrodiuril] 25 mg PO DAILY 06/30/24 [History] lisinopriL [Zestril] 30 mg PO DAILY 06/30/24 [History] Follow up Appointment(s)/Referral(s): Glory Irizarry, [NON-STAFF] - As Needed Efrain Musa MD [Primary Care Provider] - 1 Week Activity/Diet/Wound Care/Special Instructions: Glory JAY JAY: cbc,bmp in 3 days
[2024-07-05 08:37] VITALS: BP 166/91; PULSE 86; RESP 16; TEMP 97.4
--- NOTE | 2024-07-05 10:02 | P.PN ---
Subjective Progress Note Date: 07/05/24 - History of Present Illness 06/30/2024 This is a 78-year-old gentleman referred to the ER [facility]. [facility] evaluation today related to progressive right hip pain exacerbated with movement, subsequent difficulty ambulating with a walker, in a patient with past medical history significant for prostate cancer with radical prostatectomy/radiation, hernia repair, bowel resection, colostomy with reversal, former nicotine dependent, obesity, diabetes mellitus, hypertension,and multiple other medical issues.Reports on completed an echo and JUJU and lower extremities. The day after his testing developed right hip/thigh/knee pain-previously had been on the left side, attributed it to the maneuvering/positioning secondary to his testing the day prior.(Echo reported normal LV function. JUJU: Right 1.28, left 1.25 -normal 0.9-1.4). Presented initially to the ER on 06/24/2024 with imaging performed. Hip x-ray reported no acute osseous abnormality of right hip. Lumbar spine reported scoliosis, facet degenerative changes of L4-5 and L5-S1. Mild facet changes present on the right mid lumbar spine. Disc heights are generally preserved. Posterior disc space narrowing L3-4 and possibly L4-5 may be present no spondylolisthesis. Vascular calcifications within the aorta. Patient was discharged on Tylenol, Flexeril with orders to follow-up with PCP/orthopedics for ongoing management. Completed hip MRI today reporting no MRI evidence for radio occult fracture right hip. Symmetric moderate axial joint space loss with mild acetabular spurring. Small to moderate size left greater than right hip joint effusions noted. Femoral flexion maintained bilaterally. Benign appearing lymph nodes in the bilateral groin region symmetric mild fluid signal greater trochanter level bilaterally consistent with mild insertional tendinosis. No free fluid in the pelvis. Afebrile, normal WBC, hemoglobin 13.6, platelets 289, sodium 131 potassium 4.8, bicarb 21, BUN 26, creatinine 1. Glucose 108. Magnesium 1.9, LFTs within normal limits. Systolic blood pressures ranging from 130s to 150s. Denies chest pain, palpitations or shortness of breath. Maintaining O2 sats in the mid to high 90s on room air. Denies lightheadedness, dizziness or focal deficits. Reports significant right hip through to right knee pain with minimal movement. 07/01/2024 recently medicated for pain, pain currently controlled at rest. Today reports lateral thigh pain PT/OT pending. Venous Doppler of the reported negative for DVT. denies chest pain, palpitations or shortness of breath. Maintaining O2 sats in the 90s on room air. 07/02/2024 reports better pain control with current management as per orthopedic surgery. Denies chest pain, palpitations or shortness of breath. Hemodynamically stable. Evaluated by PT recommending subacute rehab at discharge. Discharge planning in progress as per primary/orthopedic surgery. 07/05/2024 discharge planning in progress for today as per orthopedic surgery [facility] subacute rehab. Pain better controlled. Denies chest pain, palpitations or shortness of breath. Objective - Vital Signs Vital signs: Vital Signs Temp 97.4 F L 07/05/24 07:26 Pulse 86 07/05/24 07:26 Resp 16 07/05/24 07:26 BP 166/91 07/05/24 07:26 Pulse Ox 95 07/05/24 07:26 FiO2 Intake & Output 07/04/24 07/05/24 07/05/24 18:59 06:59 18:59 Output Total 1150 Balance -1150 Output: Urine 950 Stool 200 Other: Voiding Method Urinal Urinal Urinal # Voids 1 # Bowel Movements 3 - Exam PHYSICAL EXAM: VITAL SIGNS: [Reviewed] GENERAL: Alert and oriented x 3, sitting up in chair, no acute distress HEENT: Normocephalic, atraumatic ,conjunctivae normal. MMM. NECK: Supple, no JVD. CARDIOVASCULAR: S1, S2 regular.No murmur RESPIRATION: Unlabored, equal air entry, clear to auscultation ABDOMEN: Soft, obese, nontender . No guarding. Positive bowel sounds. LEGS: right hip,thigh soft, tender ,positive edema.Peripheral pulses intact. NERVOUS SYSTEM: Cranial N 2-12 grossly normal. No focal deficits. Skin: Warm and dry, no rash. - Labs CBC & Chem 7: 07/01/24 04:57 07/01/24 04:57 Labs: Abnormal Lab Results - Last 24 Hours (Table) 07/04/24 07/05/24 Range/Units 20:24 06:24 POC Glucose (mg/dL) 159 H 125 H (70-110) mg/dL Assessment and Plan Assessment: Subacute right hip pain, x 1 week, possible arthritis .MRI reporting moderate- sized fat-containing left inguinal hernia, insertional tendinosis, left greater than right small to moderate size hip joint effusions. Morbid obesity, BMI 36 Diabetes mellitus, hemoglobin A1c 6.7 Hypertension Hyperlipidemia Multiple abdominal surgeries Prior nicotine dependence History prostate cancer,radical prostatectomy and radiation Plan: Continue on current medication regime ,monitoring and symptomatic treatment. Discharge planning in progress today for [facility] rehab. pain management as per admitting/orthopedic surgeon. PT/OT. medically cleared for discharge. Dr. Musa will follow up with patient at [facility] subacute rehab. The impression and plan of care has been dictated as directed. : I performed a history and examination of this patient, discussed the same with the dictator. I agree with the dictator's note ,documented as a scribe. Any additional findings or plans will be noted.
[2024-07-05 11:46] LABS: Glucose,Whole Blood 104 mg/dL (70-110)
[2024-07-05] MEDS: hydroCHLOROthiazide 25 MG TAB PO SCH (12:15)
[2024-07-05] MEDS: lisinopriL 10 MG TAB PO SCH (12:15)
== END 2024-07-05 13:30 | DRG 554 ==
LOC: EC 10:20 → 4SSUR 13:38 → OBSVTOIN 07-01 11:11
PROVIDERS: ADMIT Orthopaedic Surgery; ATTEND Orthopaedic Surgery
DX: M16.11 Unilateral primary osteoarthritis, right hip (principal); E11.9 Type 2 diabetes mellitus without complications; E66.01 Morbid (severe) obesity due to excess calories; I10 Essential (primary) hypertension; R60.0 Localized edema; M25.451 Effusion, right hip; K40.90 Unilateral inguinal hernia, without obstruction or gangrene, not specified as recurrent; E78.5 Hyperlipidemia, unspecified; M41.86 Other forms of scoliosis, lumbar region; Z79.84 Long term (current) use of oral hypoglycemic drugs; Z88.5 Allergy status to narcotic agent; Z87.891 Personal history of nicotine dependence; Z85.46 Personal history of malignant neoplasm of prostate; Z68.36 Body mass index [BMI] 36.0-36.9, adult; Z79.899 Other long term (current) drug therapy; Z90.79 Acquired absence of other genital organ(s)
CPT/HCPCS: 36415; 80048; 80053; 83036; 83735; 85025; 99284

== ENCOUNTER → 2024-07-01 | Outpatient (CLI) | payer MEDICARE, OTHER | END | disposition home or self-care (01) | LOC: RADUSWWP 11:33 | PROVIDERS: ATTEND Family Medicine | DX: Z53.9 Procedure and treatment not carried out, unspecified reason (principal) ==

== ENCOUNTER → 2024-08-12 | Outpatient (CLI) | payer MEDICARE, OTHER ==
--- NOTE | 2024-08-12 15:01 | NM ---
EXAMINATION TYPE: NM bone scan whole body DATE OF EXAM: 08/12/2024 COMPARISON: NONE CLINICAL INDICATION: Male, 78 years old with history of M54.59 OTHER LOW BACK PAIN; Delayed whole-body scanning was performed following the injection of 23.7 mCi Tc 99m MDP. Images acq uired 3 hours post injection. FINDINGS: No suspicious focal uptake is identified. There is some mild uptake at joint spaces more compatible w ith degenerative type changes. Attention is paid to the lower back. Subtle degenerative type change m ay be at the posterior right L2-3 region suspicious uptake to suggest acute fracture or metastasis is not identified IMPRESSION: 1. Degenerative type uptake. 2. Minimal degenerative type uptake may be in the L2-3 region on the posterior right lumbar spine [facility], , 08/12/2024 2:58 PM
== END | disposition home or self-care (01) ==
LOC: RADNMMAIN 10:22
PROVIDERS: ATTEND Orthopaedic Surgery Orthopaedic Surgery of the Spine
DX: M54.59 Other low back pain (principal); R93.7 Abnormal findings on diagnostic imaging of other parts of musculoskeletal system
CPT/HCPCS: 78306; A9503

== ENCOUNTER → 2024-08-21 | Outpatient (CLI) | payer MEDICARE, OTHER ==
[2024-08-21 11:37] LABS: Basophils # (A) 0.04 10*3/uL (0.00-0.10); Basophils % (A) 0.3 %; Eosinophils # (A) 0.18 10*3/uL (0.04-0.35); Eosinophils % (A) 1.4 %; HCT 35.0 % (39.6-50.0); HGB 11.7 g/dL (13.0-17.0); Lymphocytes # (A) 2.69 10*3/uL (0.90-5.00); Lymphocytes % (A) 20.6 %; MCH 28.9 pg (27.0-32.0); MCHC 33.4 g/dL (32.0-37.0); MCV 86.4 fL (80.0-97.0); Monocytes # (A) 1.11 10*3/uL (0.20-1.00); Monocytes % (A) 8.5 %; Neutrophils # (A) 8.74 10*3/uL (1.80-7.70); Neutrophils % (A) 66.9 %; Platelet Count 323 10*3/uL (140-440); RBC 4.05 10*6/uL (4.40-5.60); RDW 15.4 % (11.5-14.5); WBC 13.06 10*3/uL (4.50-10.00)
[2024-08-21 12:07] LABS: INR 1.0 (<1.2); Partial Thromboplastin Time 22.5 sec (22.0-30.0); Prothrombin Time 11.1 sec (10.0-12.5)
[2024-08-22 01:27] LABS: ALT 65 U/L (10-49); AST 20 U/L (14-35); Albumin 4.2 g/dL (3.8-4.9); Albumin/Globulin Ratio 1.75 Ratio (1.60-3.17); Alkaline Phosphatase 53 U/L (41-126); Anion Gap 14.60 mmol/L (4.00-12.00); BUN/Creat Ratio 29.40 Ratio (12.00-20.00); Blood Urea Nitrogen 58.8 mg/dL (9.0-27.0); Calcium 9.2 mg/dL (8.7-10.3); Carbon Dioxide 20.4 mmol/L (21.6-31.8); Chloride 101 mmol/L (96-109); Globulin 2.4 g/dL (1.6-3.3); Glucose 110 mg/dL (70-110); Potassium 5.4 mmol/L (3.5-5.5); Sodium 136 mmol/L (135-145); Total Protein 6.6 g/dL (6.2-8.2)
[2024-08-22 07:11] LABS: Bilirubin,Urine Negative (Negative); Blood,Urine Negative (Negative); Color,Urine Yellow (Yellow); Ketones,Urine Trace (Negative); Nitrite,Urine Negative (Negative); PH, Urine 5.0; Specific Gravity,Urine 1.018 (1.001-1.030); Urobilinogen,Urine 0.2 E.U./DL
== END | disposition home or self-care (01) ==
LOC: LABPAT 09:19
PROVIDERS: ATTEND Orthopaedic Surgery Orthopaedic Surgery of the Spine
DX: Z01.812 Encounter for preprocedural laboratory examination (principal); Z22.322 Carrier or suspected carrier of Methicillin resistant Staphylococcus aureus; M48.00 Spinal stenosis, site unspecified
CPT/HCPCS: 80053; 81003; 85025; 85610; 85730; 86850; 86900; 86901; 87070

== ENCOUNTER → 2024-08-23 | Outpatient (CLI) | payer MEDICARE, OTHER ==
--- NOTE | 2024-08-23 11:04 | XR ---
EXAMINATION TYPE: XR chest 2V DATE OF EXAM: 08/23/2024 10:47 AM COMPARISON: Chest radiographs from 01/01/2016. CLINICAL INDICATION: Male, 78 years old with history of Z01.818 PRE SURGICAL; [facility] TECHNIQUE: XR chest 2V Frontal and lateral views of the chest. FINDINGS: Lungs/Pleura: There is no evidence of pleural effusion, focal consolidation, or pneumothorax. Pulmonary vascularity: Unremarkable. Heart/mediastinum: Cardiomediastinal silhouette is unremarkable. Musculoskeletal: Multiple level degenerative disc disease changes seen throughout the spine. IMPRESSION: No acute cardiopulmonary disease/process. [facility], , 08/23/2024 11:02 AM
== END | disposition home or self-care (01) ==
LOC: LABPAT 09:50
PROVIDERS: ATTEND Orthopaedic Surgery Orthopaedic Surgery of the Spine
DX: Z01.818 Encounter for other preprocedural examination (principal); Z22.322 Carrier or suspected carrier of Methicillin resistant Staphylococcus aureus; M48.00 Spinal stenosis, site unspecified
CPT/HCPCS: 71046

== ENCOUNTER → 2024-08-25 | Outpatient (CLI) | payer MEDICARE, OTHER ==
[2024-08-25 14:00] VITALS: BP 123/73; PULSE 96; RESP 16; TEMP 97.3
--- NOTE | 2024-08-25 14:33 | P.PROGSL ---
Subjective DATE: 08/25/2024 FOLLOW UP VISIT. Patient with obstructive sleep apnea hypopnea syndrome return to sleep center for follow-up visit. Information from previous visit have been reviewed. Patient is using PAP equipment every night for the whole night, getting PAP supplies in time. The patient does not have significant problems with the mask, PAP unit and humidification. Rawlings sleepiness scale is 1, which is perfect. I checked information from PAP unit. PAP unit pressure 5-12, average 10.9 cm H2O. Usage is 100% for more then 4 hours, average 7.4 hours per night. Leak is slightly increased to 30 l/m, which is in acceptable range. Apnea Hypopnea Index is 3.3, which is normal. MEDICATIONS have been reviewed, please see below. During physical exam: GENERAL: A pleasant patient without any distress. VITAL SIGNS: Please see below, weight is 188 lbs. HEENT: PERRLA, EOMI.low position of soft palate, Mallapati 4 . NECK: Supple. No JVD. LUNGS: Clear to percussion and to auscultation. Good air exchange. No wheezing or rhonchi. HEART: S1, S2 regular. ABDOMEN: Soft and nontender.[] EXTREMITIES: No clubbing or cyanosis. [employer]ER OPERATOR: Awake, alert, and oriented x3. No focal deficit. Impressions: 1. Obstructive sleep apnea-hypopnea syndrome. Patient demonstrated great compliance with treatment, benefiting from treatment. 2. Diabetes mellitus type 2. 3. Mild obesity, BMI 31.2, patient lost about 33 pounds comparing with previous visit. 4. Hypertension. 5. Acid reflux. 6. History of prostate cancer, status post surgical and radiation treatment. 7. History of colon polyps, status post surgical treatment. 8. Hyperlipidemia. Plan: 1. Continue using PAP equipment every night for the whole night. 2. Sleep hygiene with regular time in bed for at least 7.5-8 hours 3. PAP unit should stay lower then position of the head. 4. Advised patient to remove all remaining water from humidifier canister daily and make it dry after each usage. Refill canister with fresh distilled water before each usage. 5. Watching weight. 6. Precautions related to driving. No driving if feel any sleepiness. 7. I will maintain prescription for PAP supplies including mask, tube, filters. 8. Follow up visit in 8 months or earlier if patient has any problems. Thank you very much for allowing me to participate in the management of your patient. Brodie Albarado MD, PhD, FAASM. Diplomat of [employer], Sleep Medicine Board by [employer] [employer] of [facility] [place] Objective - Vital Signs Vital Signs: Vital Signs Temp 97.3 F L 08/25/24 13:59 Pulse 96 08/25/24 13:59 Resp 16 08/25/24 13:59 BP 123/73 08/25/24 13:59 Pulse Ox 98 08/25/24 13:59 FiO2 Intake & Output 08/24/24 08/25/24 08/25/24 18:59 06:59 18:59 Weight 85.275 kg Home Medications: Home Medications Medication Instructions Recorded Confirmed Type Omeprazole [PriLOSEC] 20 mg PO HS 07/26/13 08/25/24 History Atorvastatin [Lipitor] 40 mg PO HS 04/28/18 08/25/24 History Pioglitazone [Actos] 30 mg PO DAILY 04/28/18 08/25/24 History Vit C/E/Zn/Coppr/Lutein/Zeaxan 1 tab PO BID 04/28/18 08/25/24 History [Preservision Areds 2 Softgel] metFORMIN HCL [Glucophage] 1,000 mg PO BID 04/28/18 08/25/24 History Cholecalciferol [Vitamin D3 (25 25 mcg PO DAILY 06/30/24 08/25/24 History Mcg = 1000 Iu)] [place]-3/Dha/Epa/Fish Oil [[place]-3 1 cap PO BID 06/30/24 08/25/24 History Fish Oil 1,000 mg Sfgl] amLODIPine [Norvasc] 10 mg PO HS 06/30/24 08/25/24 History hydroCHLOROthiazide [Hydrodiuril] 25 mg PO DAILY 06/30/24 08/25/24 History lisinopriL [Zestril] 30 mg PO DAILY 06/30/24 08/25/24 History Multivitamins, Thera [Multivitamin 1 tab PO DAILY 08/25/24 08/25/24 History (formulary)]
== END ==
LOC: 3 N SLEEP 13:29
PROVIDERS: ATTEND Internal Medicine
DX: G47.33 Obstructive sleep apnea (adult) (pediatric) (principal); E11.9 Type 2 diabetes mellitus without complications; E66.9 Obesity, unspecified; I10 Essential (primary) hypertension; E78.5 Hyperlipidemia, unspecified; K21.9 Gastro-esophageal reflux disease without esophagitis; Z85.46 Personal history of malignant neoplasm of prostate; Z68.31 Body mass index [BMI] 31.0-31.9, adult; Z86.0100 Personal history of colon polyps, unspecified; Z99.89 Dependence on other enabling machines and devices; Z92.3 Personal history of irradiation; Z98.890 Other specified postprocedural states; Z88.5 Allergy status to narcotic agent; Z87.891 Personal history of nicotine dependence
CPT/HCPCS: 99212

== ENCOUNTER 2024-09-01 06:32 | Day surgery (SDC) | payer MEDICARE, OTHER ==
[2024-09-01] MEDS ORDERED: fentaNYL (PF) 50 MCG/ML 2 ML AMP IV PRN (07:18)
[2024-09-01 07:38] LABS: Glucose,Whole Blood 129 mg/dL (70-110)
[2024-09-01] MEDS: IV FLUID CONTINUATION 1,000 ML IV ONE ×3 (07:40→10:46)
[2024-09-01] MEDS: LACTATED RINGERS 1,000 ML IV SCH (07:41)
[2024-09-01 07:47] LABS: Basophils # (A) 0.02 10*3/uL (0.00-0.10); Basophils % (A) 0.3 %; Eosinophils # (A) 0.29 10*3/uL (0.04-0.35); Eosinophils % (A) 3.7 %; HCT 32.9 % (39.6-50.0); HGB 11.0 g/dL (13.0-17.0); Lymphocytes # (A) 1.30 10*3/uL (0.90-5.00); Lymphocytes % (A) 16.7 %; MCH 28.5 pg (27.0-32.0); MCHC 33.4 g/dL (32.0-37.0); MCV 85.2 fL (80.0-97.0); Monocytes # (A) 0.61 10*3/uL (0.20-1.00); Monocytes % (A) 7.8 %; Neutrophils # (A) 5.55 10*3/uL (1.80-7.70); Neutrophils % (A) 71.1 %; Platelet Count 251 10*3/uL (140-440); RBC 3.86 10*6/uL (4.40-5.60); RDW 15.6 % (11.5-14.5); WBC 7.80 10*3/uL (4.50-10.00)
[2024-09-01] MEDS: ONDANSETRON 4 MG/2 ML VIAL IVP STA (07:55)
[2024-09-01 08:17] LABS: African American GFR (CKD) 56 (>60 ml/min/1.73 sqM); Anion Gap 14 mmol/L; Blood Urea Nitrogen 45 mg/dL (9-20); Calcium 9.3 mg/dL (8.4-10.2); Carbon Dioxide 19 mmol/L (22-30); Chloride 109 mmol/L (98-107); Glucose 127 mg/dL (74-99); Non-African American GFR(CKD) 49 (>60 ml/min/1.73 sqM); Potassium 4.5 mmol/L (3.5-5.1); Sodium 142 mmol/L (137-145)
[2024-09-01] MEDS ORDERED: PROPOFOL 10 MG/ML 20 ML VIAL IV ONE (08:24)
[2024-09-01] MEDS ORDERED: HYDROmorphone (PF) 1 MG/ML ONE (08:24)
[2024-09-01] MEDS ORDERED: SUCCINYLCHOLINE CHLORIDE 200 MG/10 ML VIAL IV ONE (08:24)
[2024-09-01] MEDS ORDERED: fentaNYL (PF) 50 MCG/ML 2 ML AMP ONE (08:24)
[2024-09-01] MEDS ORDERED: GLYCOPYRROLATE 0.2 MG/ML 2 ML VIAL ONE (08:24)
[2024-09-01] MEDS ORDERED: ACETAMINOPHEN IV (For NPO) 1,000 MG/100 ML VIAL ONE (08:24)
[2024-09-01] MEDS ORDERED: ROCURONIUM 10 MG/ML (5 ML VIAL) IV ONE (08:24)
[2024-09-01] MEDS ORDERED: LIDOCAINE 1% INJ 10MG/ML (20 ML MDV) ONE (08:24)
[2024-09-01] MEDS ORDERED: PHENYLEPHRINE 10 MG/ML VIAL ONE (08:24)
[2024-09-01] MEDS ORDERED: NEOSTIGMINE 1 MG/ML 10 ML VIAL ONE (08:24)
[2024-09-01] MEDS ORDERED: KETAMINE HCL IN 0.9 % NACL 50 MG/5 ML SYRINGE ONE (08:24)
[2024-09-01] MEDS ORDERED: TRANEXAMIC 1,000 MG/100ML-NACL PREMIX BAG ONE (08:24)
[2024-09-01] MEDS: THROMBIN (BOVINE) 5,000 UNIT VIAL TOPICAL ONE (09:10)
[2024-09-01] MEDS: BUPIVACAINE (PF) 0.25% 30 ML VIAL SQ ONE (09:11)
[2024-09-01] MEDS: LIDOCAINE 2%-EPI 1:100,000 20 ML VIAL SQ ONE (09:12)
[2024-09-01] MEDS: ceFAZolin 1,000 MG in SODIUM CHLORIDE 0.9% IRRIGATIO 1,000 ML IRRIGATION PRN ×2 (09:13→10:36)
--- NOTE | 2024-09-01 12:08 | XR ---
EXAMINATION TYPE: XR lumbar spine 2 or 3V, FL guidance operating room DATE OF EXAM: 09/01/2024 FLUOROSCOPY priti assist for a lumbar fusion fl time [phone] Baker No images are submitted for review. [facility], Workstation: [email or web address], 09/01/2024 12:06 PM
[2024-09-01] MEDS ORDERED: HYDROmorphone 1 MG/ML 1 ML SYRINGE IVP PRN (12:11)
[2024-09-01] MEDS ORDERED: BENZOCAINE/MENTHOL LOZENG 1 EACH LOZENGE MUCOUS MEM PRN (12:11)
[2024-09-01] MEDS ORDERED: ONDANSETRON 4 MG/2 ML VIAL IVP PRN (12:11)
[2024-09-01 12:59] LABS: Glucose,Whole Blood 120 mg/dL (70-110)
--- NOTE | 2024-09-01 13:11 | P.OP ---
Date of Procedure: 09/01/24 Preoperative Diagnosis: Severe spinal stenosis L3-4 L4-5, spondylolisthesis L3-4 L4-5, disc herniation L3-4 and L4-5, lower extremity radiculopathy, neurogenic claudication, lower extremity weakness, low back pain Postoperative Diagnosis: Same Anesthesia: GETA Pathology: none sent Condition: stable Disposition: PACU Description of Procedure: DESCRIPTION OF PROCEDURE(S): BRIEF OPERATIVE NOTE Preoperative Diagnosis: Severe spinal stenosis L3-4 L4-5, spondylolisthesis L3-4 L4-5, disc herniation L3-4 and L4-5, lower extremity radiculopathy, neurogenic claudication, lower extremity weakness, low back devon Postoperative Diagnosis: Same Procedure: Laminectomy and decompression L3-4 L4-5 with bilateral decompression and bilateral foraminotomies Computer CT navigation aided Minimally invasive Posterior lateral decompression and fusion L3-4 L4-5 Minimally invasive Transforaminal lumbar interbody fusion for a 360 fusion L3-4 L4-5 Discectomy for decompression L3-4 L4-5 Placement of interbody graft L3-4 L4-5 Use of computer navigation for fusion L3-4 and 5 Local autogenous bone grafting Aspiration of bone marrow from the vertebral body pedicle L4 on the right Use of bone graft extenders Surgeon: Dr. Baker Sr. Payroll Manager: John COLLIER who is present throughout the entire the case persistence during positioning, dissection, exposure, visualization, and all crucial elements of the case as well as closure. Anesthesia: General anesthesia Estimated blood loss: Approximately 250 mL Complications: None apparent Components implanted: K2M minimally invasive [place] pedicle screw system withscrews measuring 7.5 mm in diameter to rods to expandable interbody cages with 30 mL of the BX bone fibers to supplement the local autogenous bone graft and bone marrow aspirate Disposition: To recovery room in good stable condition. OPERATIVE INDICATIONS The patient has had severe issues at their lower extremity in her lower back over the past several years with significant worsening over the past several months. He has had significant worsening over the past several months in addition to with his chronic lower extremity issues. He has been having severe debility due to his lumbar issues in his lower extremities over the past few months the patient had pain at their back and their lower extremities. The patient is having severe radicular symptoms at their lower extremity with weakness. The patient is having significant pain in their back. They are unable to obtain any comfort. We did aggressive conservative treatment with medications therapy and interventional pain management however thery were not having any relief. The patient also showed evidence of a listhesis with some dynamic instability. His symptoms correlated well with imaging findings showing severe spinal stenosis with degenerative changes and degenerative listhesis. The patient has been through conservative treatment. We discussed various treatment options including surgery, and the patient wishes to proceed with denise doron We discussed the risk, patient's alternatives and benefits of surgery including but not limited to, risk of bleeding risk of infection, risk of need for further surgery, risk of decreased, loss of motion, muscle function, malunion nonunion, hardware failure, nerve damage, paralysis, heart attack, blindness and . They understood issues with the current pandemic and the possibility of exposure. OPERATIVE SUMMARY After discussing all the risks, patient alternatives and benefits at length, the patient elected to proceed with surgical intervention, signed informed consent, and presented for their procedure. The patient was seen and examined in the preoperative holding area and the surgical site was marked. The patient was given antibiotics and brought to the operating room. The patient was sedated and intubated by anesthesia in standard fashion. The patient was positioned on to the operating room table in a prone position on the appropriate frame which was well-padded and well molded. We were careful to pad any bony prominences and pressure points. We were careful to maintain the patient's cervical spine and good neutral alignment and position throughout. The patient was prepped and draped in a normal standard fashion. An appropriate timeout and keystone protocol performed. We were able to proceed with the surgery. The local wound area was infiltrated with local anesthetic. Over the midline and establish an incision from L3-L5 I dissected down over the fascia and then through the fascia bilaterally over the lamina and over the facet joints down the transverse process bilaterally L3-L4 and L5. The appropriate levels confirmed with C-arm guidance I was able to take down the facet joints at L4-5 and L3-4. I was able to establish appropriate starting po sitions. I then placed a bony landmark with the computer navigation device with a clamp over the spinous process of L5 for a bony reference point for the navigation device. I was able to establish a Jamshidi needle over the lateral aspect of the pedicle and advanced the trocar into the pedicle being careful not to breech superiorly inferiorly medially or laterally using computer navigation device. Position was confirmed regularly with AP and lateral images on C-arm and with the computer navigation device at the appropriate levels bilaterally. I was able to establish the trocar into the pedicle appropriately into the posterior aspect of the vertebral body bilaterally at the appropriate levels. This was done at each of the pedicle positions and each of the vertebrae. At the L4 vertebrae I was able to take approximately 25 mL of bone aspiration for use later in the case to supplement the allograft and autograft bone. I was able place the guidewire into the trocar and into the vertebral body appropriately under C-arm guidance. Dissection was taken down over the wire to the appropriate starting position for the screw placed. The appropriate length screw was chosen, threaded over the guidewire and screwed appropriately into the pedicle and vertebral body under C-arm guidance in excellent alignment and position with good bony purchase. This is done at each of the screw sites at the appropriate levels at L3-L4 and L5 bilaterally.. With the screws intact I was able to dissect out further and then start the laminectomy right performed wide bilateral foraminotomies and wide laminectomy with particular attention to facetectomy on the right side for further decompression, discectomy and preparation for TLIF. I dissected down to establish access over the pars and lamina to the base of the spinous process. I was able to expose the facet joint. The capsule the facet was taken down and showed some facet arthrosis at the joint. I was able to use a combination of curettes and Kerrison rongeurs and a high-speed drill to take down the facet joint and do a facetectomy. I was able get excellent foraminal decompression and central decompression with undermining across midline to perform a laminectomy centrally and contralaterally. As able get good central decompression. The ligamentum flavum was taken down to further decompress centrally and at bilateral neural foramen. I was able to expose the disc space and visualize the traversing nerve root. Note was made of some disc protrusion and disc herniation that was abutting the traversing nerve root at the level causing further compression of the nerve root. Severe stenosis centrally and at the neuroforamen bilaterally at both levels L4-5 and L3-4. I started at L4-5 and then moved up to 3 4 similarly I was able to establish a annulotomy at the appropriate level protecting soft tissue and neural structures. Note was made of some disc desiccation at the disc. I performed a complete discectomy with accommodation of curettes and rasps and scrapers. I was able get good endplate preparation at the disc space. I sized for the appropriate size interbody spacer protecting the soft tissue and neural structures. The wound was copiously irrigated and suctioned dry. There is no evidence of any dural tear or leak. I was able to pack the disc space with local autogenous bone graft as well as a small amount of bone graft which was also placed into the interbody cage itself. Protecting the soft tissue structures and neural structures I was able place the interbody cage in good alignment and expanded and establish and good position with good fit and fill at the interbody space. Position was confirmed with C-arm guidance. Good hemostasis maintained. There is no evidence of any dural tear or leak. The wound was irrigated and suctioned dry. With the hardware intact, intraoperative C-arm imaging was again taken which showed good alignment and position of the hardware at the appropriate levels at L3-4 and L4-5. We were then able to measure, contour and place the rods and appropriate hardware bilaterally. I was able to place capcrews, tighten them down, and torque them with the torque screwdriver appropriately. With this intact I was able to place the local autogenous bone graft with additional bone graft enhancer as necessary into the posterior lateral gutters over the decorticated transverse processes and facet joints on the contralateral side. The remainder of the bone graft was placed over the facet joint on the contralateral side after taking down the facet joint capsule. With the bone graft intact, a stable construct, and good decompression at the appropriate levels, we were able to proceed with closure. Good hemostasis was maintained. There is no evidence of dural tear or leak. The fascia was closed for a watertight closure. he subcuticular tissue was closed with absorbable suture. The wound was cleaned and dried and dressed with the appropriate dressing. The drapes were broken down. The patient was gently rolled back onto their hospital bed being careful to maintain their cervical spine and good neutral alignment and position. They were woken up by anesthesia, extubated, and brought to the recovery room in good stable condition. The patient will be admitted to the hospital for appropriate postoperative care, medical management and monitoring. We will continue to follow them closely about the postoperative course.
[2024-09-01] MEDS: HYDROcodone/APAP 5-325MG 1 EACH TAB PO PRN (15:36)
[2024-09-01] MEDS: SODIUM CHLORIDE 0.9% 1,000 ML IV SCH (15:38)
[2024-09-01] MEDS ORDERED: MORPHINE PCA 50 MG/50 ML BAG IV PRN (16:31)
[2024-09-01] MEDS ORDERED: NALOXONE 0.4 MG/ML 1 ML VIAL IV PRN (16:31)
[2024-09-01] MEDS ORDERED: DEXTROSE 50% SYRINGE 50 ML IVP PRN ×2 (16:41)
[2024-09-01 17:16] LABS: Glucose,Whole Blood 135 mg/dL (70-110)
[2024-09-01] MEDS: INSULIN LISPRO (HumaLOG) 100 UNIT/ML 10 mL VL SQ SCH (17:28)
[2024-09-01] MEDS: PANTOPRAZOLE 40 MG TABLET PO SCH (20:10)
[2024-09-01] MEDS: amLODIPine 10 MG TAB PO SCH (20:10)
[2024-09-01] MEDS: ATORVASTATIN 40 MG TAB PO SCH (20:10)
[2024-09-01] MEDS: VIT A,C & E-LUTEIN-MINERALS 1 EACH TAB PO SCH (20:10)
[2024-09-01] MEDS ORDERED: metFORMIN 500 MG TAB PO SCH (21:00)
[2024-09-01] MEDS ORDERED: NON FORMULARY DRUG (Omega-3/Dha/Epa/Fish Oil [Omega-3 Fish Oil 1,000 Mg Sfgl] 1 EACH Capsu PO SCH (21:00)
[2024-09-01 21:03] LABS: Glucose,Whole Blood 114 mg/dL (70-110)
[2024-09-01] MEDS: HYDROmorphone 0.5 MG/0.5 ML SYRINGE IVP PRN (23:13)
[2024-09-02 06:10] LABS: Glucose,Whole Blood 144 mg/dL (70-110)
[2024-09-02 08:05] LABS: Basophils # (A) 0.01 X 10*3/uL (0.00-0.10); Basophils % (A) 0.1 %; Eosinophils # (A) 0.06 X 10*3/uL (0.04-0.35); Eosinophils % (A) 0.6 %; HCT 28.1 % (39.6-50.0); HGB 9.0 g/dL (13.0-17.0); Immature Grans, Automated 0.40 %; Lymphocytes # (A) 0.72 X 10*3/uL (0.90-5.00); Lymphocytes % (A) 6.9 %; MCH 27.7 pg (27.0-32.0); MCHC 32.0 g/dL (32.0-37.0); MCV 86.5 FL (80.0-97.0); Monocytes # (A) 0.81 X 10*3/uL (0.20-1.00); Monocytes % (A) 7.7 %; NRBC Per 100 WBC 0 X 10*3/uL (0.00-0.01); Neutrophils # (A) 8.83 X 10*3/uL (1.80-7.70); Neutrophils % (A) 84.3 %; Platelet Count 202 X 10*3/uL (140-440); RBC 3.25 X 10*6/uL (4.40-5.60); RDW 15.8 % (11.5-14.5); WBC 10.47 X 10*3/uL (4.50-10.00)
[2024-09-02 08:16] LABS: Anion Gap 9.00 mmol/L (4.00-12.00); BUN/Creat Ratio 22.58 Ratio (12.00-20.00); Blood Urea Nitrogen 27.1 mg/dL (9.0-27.0); Calcium 8.2 mg/dL (8.7-10.3); Carbon Dioxide 21.0 mmol/L (21.6-31.8); Chloride 104 mmol/L (96-109); Glucose 146 mg/dL (70-110); Potassium 4.4 mmol/L (3.5-5.5); Sodium 134 mmol/L (135-145)
[2024-09-02] MEDS: CHOLECALCIFEROL 25 MCG (1000 IU) TABLET PO SCH (08:40)
[2024-09-02] MEDS: SENNOSIDES-DOCUSATE SODIUM 1 EACH TAB PO SCH (08:40)
[2024-09-02] MEDS: MULTIVITAMINS, THERA 1 EACH TAB PO SCH (08:40)
[2024-09-02] MEDS: PIOGLITAZONE 30 MG TAB PO SCH (08:40)
[2024-09-02] MEDS ORDERED: hydroCHLOROthiazide 25 MG TAB PO SCH (09:00)
--- NOTE | 2024-09-02 11:09 | P.CONS ---
History of Present Illness - Reason for Consult Consult date: 09/02/24 Medical management Requesting physician: Rex Baker - Chief Complaint Back pain - History of Present Illness This is a pleasant 78-year-old gentleman with past medical history significant for diabetes mellitus, gastroesophageal reflux disease, hypertension, hyperlipidemia, macular degeneration, multiple abdominal surgeries, prostate cancer-prostatectomy with radiation treatment, former nicotine dependence, status post Laminectomy and decompression L3-4 L4-5 with bilateral decompression and bilateral foraminotomies, discectomy for decompression L3-4 L4-5 secondary t o severe spinal stenosis, spinal spondylolisthesis, disc herniation, lower extremity radiculopathy, lower extremity weakness, low back pain. Tolerated procedure well. Reports back spasms throughout the night. Tmax 100.8, WBC 10.47. Receiving IV fluid hydration with renal function improving, creatinine decreased to 01.2. denies nausea ,vomiting or diarrhea. Hemoglobin A1c 7, blood sugars controlled, ranging from 1 teens to 140s. Reports no bowel movement since one day prior to admission. Hemoglobin 9, platelets 202. Denies chest pain, palpitations or shortness of breath. Maintaining O2 sats in the mid 90s on room air. Review of Systems ROS Statement: Those systems with pertinent positive or pertinent negative responses have been documented in the HPI. ROS Other: All systems not noted in ROS Statement are negative. Past Medical History Past Medical History: Cancer, Diabetes Mellitus, GERD/Reflux, Hyperlipidemia, Hypertension Additional Past Medical History / Comment(s): HX COLOSTOMY R/T PERFORATED COLON AFTER COLONOSCOPY. HAS SINCE HAD REVERSAL. HX PROSTATE CANCER 2008 AND SKIN CA- 1993, macular degeneration, cataracts History of Any Multi-Drug Resistant Organisms: None Reported Past Surgical History: Bowel Resection, Hernia Repair, Prostate Surgery Additional Past Surgical History / Comment(s): COLOSTOMY W/REVERSAL, COLONSCOPY. RADICAL PROSTATECTOMY 2008 WITH RADIATION [place] AFTER. Past Anesthesia/Blood Transfusion Reactions: No Reported Reaction Additional Past Anesthesia/Blood Transfusion Reaction / Comm: no blood tx hx Past Psychological History: No Psychological Hx Reported Smoking Status: Former smoker Past Alcohol Use History: None Reported Additional Past Alcohol Use History / Comment(s): quit smoking 1973 Past Drug Use History: None Reported - Past Family History Father Family Medical History: Cancer Sister(s) Family Medical History: Cancer Medications and Allergies Home Medications Medication Instructions Recorded Confirmed Type Omeprazole [PriLOSEC] 20 mg PO HS 07/26/13 09/01/24 History Atorvastatin [Lipitor] 40 mg PO HS 04/28/18 09/01/24 History Pioglitazone [Actos] 30 mg PO DAILY 04/28/18 09/01/24 History Vit C/E/Zn/Coppr/Lutein/Zeaxan 1 tab PO BID 04/28/18 08/25/24 History [Preservision Areds 2 Softgel] metFORMIN HCL [Glucophage] 1,000 mg PO BID 04/28/18 09/01/24 History Cholecalciferol [Vitamin D3 (25 25 mcg PO DAILY 06/30/24 08/25/24 History Mcg = 1000 Iu)] [place]-3/Dha/Epa/Fish Oil [[place]-3 1 cap PO BID 06/30/24 08/25/24 History Fish Oil 1,000 mg Sfgl] amLODIPine [Norvasc] 10 mg PO HS 06/30/24 09/01/24 History hydroCHLOROthiazide [Hydrodiuril] 25 mg PO DAILY 06/30/24 09/01/24 History lisinopriL [Zestril] 30 mg PO DAILY 06/30/24 09/01/24 History Multivitamins, Thera [Multivitamin 1 tab PO DAILY 08/25/24 08/25/24 History (formulary)] Baclofen 10 mg PO TID PRN #60 tab 09/03/24 Rx HYDROcodone/APAP 5-325MG [Sharon 5] 1 each PO Q6HR PRN #28 tab 09/03/24 Rx Sennosides-Docusate Sodium 1 tab PO BID PRN #60 tablet 09/03/24 Rx [Senokot-S] Allergies Allergy/AdvReac Type Severity Reaction Status Date / Time codeine AdvReac dizziness Verified 09/01/24 07:19 Physical Exam Vitals: Vital Signs Temp Pulse Resp BP Pulse Ox 09/02/24 10:24 99 F 09/02/24 07:49 100.8 F H 88 17 114/57 95 09/02/24 02:21 99.7 F H 92 16 133/62 92 L 09/01/24 19:09 98.2 F 59 L 16 131/63 93 L 09/01/24 17:08 99 09/01/24 16:10 53 L 117/63 98 09/01/24 15:56 59 L 117/58 99 09/01/24 15:41 63 116/64 98 09/01/24 15:26 53 L 119/61 98 09/01/24 15:11 50 L 114/63 99 09/01/24 14:56 53 L 124/69 99 09/01/24 14:42 59 L 123/64 98 09/01/24 14:26 64 119/67 87 L 09/01/24 14:12 97.4 F L 59 L 17 113/64 96 09/01/24 13:14 56 L 16 101/47 94 L 09/01/24 12:59 66 16 100/53 95 09/01/24 12:44 64 18 101/56 93 L 09/01/24 12:29 72 16 87/58 94 L 09/01/24 12:14 97.7 F 62 14 116/69 99 Intake and Output 09/01/24 09/02/24 09/02/24 22:59 06:59 14:59 Output Total 0 1300 120 Balance 0 -1300 -120 Output: Drainage 120 Lower Back 120 Urine 0 1300 Other: Voiding Method Indwelling Catheter VITAL SIGNS: [Reviewed] GENERAL: Pleasant, well-developed, elderly male, alert and oriented x 3, sitting up in bed, no acute distress HEENT: Normocephalic, atraumatic ,conjunctivae normal. eyes normal. MMM. NECK: Supple, no JVD. CARDIOVASCULAR: S1, S2 regular.No murmur RESPIRATION: Unlabored, equal air entry, essentially clear to auscultation with bilateral bases diminished. ABDOMEN: Soft, obese, nontender . No guarding. no masses palpable. Positive bowel sounds. Extremities: No peripheral edema, no clubbing or cyanosis, no calf pain ,peripheral pulses intact. NERVOUS SYSTEM: Cranial N 2-12 grossly normal. No focal deficits. Skin: Warm and dry, no rash. Surgical dressing on back, clean dry and intact. Results CBC & Chem 7: 09/03/24 05:11 09/03/24 05:11 Labs: Abnormal Lab Results - Last 24 Hours (Table) 09/01/24 09/01/24 09/01/24 Range/Units 12:57 17:06 21:02 WBC (4.50-10.00) X 10*3/uL RBC (4.40-5.60) X 10*6/uL Hgb (13.0-17.0) g/dL Hct (39.6-50.0) % RDW (11.5-14.5) % Neutrophils # (1.80-7.70) X 10*3/uL Lymphocytes # (0.90-5.00) X 10*3/uL Sodium (135-145) mmol/L Carbon Dioxide (21.6-31.8) mmol/L BUN (9.0-27.0) mg/dL BUN/Creatinine Ratio (12.00-20.00) Ratio Glucose (70-110) mg/dL POC Glucose (mg/dL) 120 H 135 H 114 H (70-110) mg/dL Hemoglobin A1c (<=6.0) % Calcium (8.7-10.3) mg/dL 09/02/24 09/02/24 09/02/24 Range/Units 05:50 05:50 05:50 WBC 10.47 H (4.50-10.00) X 10*3/uL RBC 3.25 L (4.40-5.60) X 10*6/uL Hgb 9.0 L (13.0-17.0) g/dL Hct 28.1 L (39.6-50.0) % RDW 15.8 H (11.5-14.5) % Neutrophils # 8.83 H (1.80-7.70) X 10*3/uL Lymphocytes # 0.72 L (0.90-5.00) X 10*3/uL Sodium 134 L (135-145) mmol/L Carbon Dioxide 21.0 L (21.6-31.8) mmol/L BUN 27.1 H (9.0-27.0) mg/dL BUN/Creatinine Ratio 22.58 H (12.00-20.00) Ratio Glucose 146 H (70-110) mg/dL POC Glucose (mg/dL) (70-110) mg/dL Hemoglobin A1c 7.0 H (<=6.0) % Calcium 8.2 L (8.7-10.3) mg/dL 09/02/24 Range/Units 06:00 WBC (4.50-10.00) X 10*3/uL RBC (4.40-5.60) X 10*6/uL Hgb (13.0-17.0) g/dL Hct (39.6-50.0) % RDW (11.5-14.5) % Neutrophils # (1.80-7.70) X 10*3/uL Lymphocytes # (0.90-5.00) X 10*3/uL Sodium (135-145) mmol/L Carbon Dioxide (21.6-31.8) mmol/L BUN (9.0-27.0) mg/dL BUN/Creatinine Ratio (12.00-20.00) Ratio Glucose (70-110) mg/dL POC Glucose (mg/dL) 144 H (70-110) mg/dL Hemoglobin A1c (<=6.0) % Calcium (8.7-10.3) mg/dL Assessment and Plan Assessment: Severe spinal stenosis L3-4 L4-5, spondylolisthesis L3-4 L4-5, disc herniation L3-4 and L4-5, lower extremity radiculopathy, neurogenic claudication, lower extremity weakness, low back pain, status post Laminectomy and decompression L3- 4 L4-5 with bilateral decompression and bilateral foraminotomies, Discectomy for decompression L3-4 L4-5 Postoperative blood loss anemia, expected outcome Leukocytosis, low-grade fever postoperative, secondary to atelectasis, expected outcome Diabetes mellitus, hemoglobin A1c 7. Hypertension Hyperlipidemia Multiple abdominal surgeries Prior nicotine dependence History prostate cancer,radical prostatectomy and radiation Obesity, BMI 31 Plan: Continue on current medication regime ,monitoring and symptomatic treatment. Pain management/ muscle relaxants and DVT prophylaxis as per primary. Tight glycemic control, insulin sliding scale ordered. Gentle IV fluid hydration. Hold off on hydrochlorothiazide and ERASMO inhibitor, renal function improving. Close monitoring of renal function, hemoglobin, WBC with repeat labs ordered for a.m. aggressive pulmonary toileting with incentive spirometer reinforced. PT/OT. The impression and plan of care has been dictated as directed. : I performed a history and examination of this patient, discussed the same with the dictator. I agree with the dictator's note ,documented as a scribe. Any additional findings or plans will be noted.
--- NOTE | 2024-09-02 11:26 | P.PN ---
Progress Note - Text Progress Note Date: 09/02/24 Orthopedic Spine History of present illness: Patient is a pleasant 78-year-old male who is seen and examined at the bedside following open L3-4 and L4-5 posterior lateral decompression and fusion performed yesterday. Patient states they are doing well post operatively. He is currently sitting in a bedside chair. Currently does not complain of nausea, vomiting, fever, or chills. Patient states pain has been adequately controlled. He has some pain in his lumbar spine that is being adequately controlled with medication. He also has some muscle spasms at his lumbar spine. He is not currently complain of any lower extremity radiculopathy symptoms. Patient is eating without difficulty. His Howard catheter has been discontinued. He feels he is progressing well postoperatively and currently does not have any significant complaints except for sore lumbar muscle spasms. If he continues to improve, he feels he could be ready for discharge home as early as tomorrow, 09/03/2024. He will use a walker as needed to aid in ambulation. He has a walker at home. He has been seen by medicine for postoperative medical management. He has a Hemovac drain intact. He did have 120 cc blood loss every shift. Physical Exam Lumbar Fusion: Status post surgical day number 1 Patient is awake, alert, and oriented 3 Vital signs stable Good chest excursion with deep inspiration and expiration Dorsiflexion, plantarflexion, and extensor hallucis longus positive sustained bilaterally No signs or symptoms of DVT; no calf pain; pneumatic cuffs intact bilateral lower extremities Optifoam dressings are clean, dry, and intact over the lumbar spine and right iliac crest; no erythema, purulence, or signs of infection Hemovac drain intact Neurovascularly intact bilaterally lower extremities Assessment: Status post L 3-4 and L4-5 openposterior lateral decompression and fusion with transforaminal lumbar interbody fusion Low back pain Lumbar muscle spasms L3-4 and L4-5 severe spinal stenosis L3-4 and L4-5 spondylolisthesis L3-4 and L4-5 herniated nucleus pulposus Lower extremity radiculopathy Neurogenic claudication Lower extremity weakness Diabetes mellitus Hypertension Hyperlipidemia Multiple abdominal surgeries History of prostate cancer with radical prostatectomy and radiation Plan: 1. Ambulate as tolerated; work with Physical Therapy to increase mobilization 2. Continue pain control with IV and oral medications; will plan to begin weaning the patient off of IV narcotic medication in anticipation for discharge home in the next 1-2 days I have added baclofen 10 mg, 1 tab, 3 times daily, as needed for muscle spasm 3. Dressings to remain intact with Optifoam; patient may shower with dressings intact; Hemovac drain will remain intact until tomorrow at which time I will plan to discontinue Hemovac drain 4. Medical management can continue to manage patient for patient's other medical diagnoses 5. We will continue to follow the patient closely; depending on the patient's progress, if he continues to improve, we may plan for discharge home as early as tomorrow, 09/03/2024 6. Consultation has been placed with case management for home health services at the time of discharge 7. Patient can follow-up with John Reis PA-C or Dr. Chele Baker at [facility] in 2-3 weeks following discharge The patient is seen and examined today. I agree with the above. He will have his Howard discontinued today and we will make sure that he is able to urinate spontaneously. He feels he is doing very well and is happy with how his legs feel already.
[2024-09-02] MEDS: BACLOFEN 10 MG TAB PO PRN (11:40)
[2024-09-02 12:01] LABS: Glucose,Whole Blood 166 mg/dL (70-110)
[2024-09-02 16:23] LABS: Glucose,Whole Blood 143 mg/dL (70-110)
[2024-09-02 21:11] LABS: Glucose,Whole Blood 151 mg/dL (70-110)
[2024-09-03 06:21] LABS: Glucose,Whole Blood 124 mg/dL (70-110)
[2024-09-03 07:58] LABS: HCT 25.5 % (39.6-50.0); HGB 8.4 g/dL (13.0-17.0); MCH 28.4 pg (27.0-32.0); MCHC 32.9 g/dL (32.0-37.0); MCV 86.1 FL (80.0-97.0); NRBC Per 100 WBC 0 X 10*3/uL (0.00-0.01); Platelet Count 173 X 10*3/uL (140-440); RBC 2.96 X 10*6/uL (4.40-5.60); RDW 15.7 % (11.5-14.5); WBC 11.13 X 10*3/uL (4.50-10.00)
[2024-09-03 08:13] VITALS: BP 116/62; PULSE 79; RESP 19; TEMP 98.6
[2024-09-03 08:32] LABS: Anion Gap 11.00 mmol/L (4.00-12.00); BUN/Creat Ratio 16.64 Ratio (12.00-20.00); Blood Urea Nitrogen 18.3 mg/dL (9.0-27.0); Calcium 8.4 mg/dL (8.7-10.3); Carbon Dioxide 21.0 mmol/L (21.6-31.8); Chloride 104 mmol/L (96-109); Glucose 124 mg/dL (70-110); Potassium 4.4 mmol/L (3.5-5.5); Sodium 136 mmol/L (135-145)
--- NOTE | 2024-09-03 08:49 | P.DS ---
Providers Date of admission: 09/01/2024 Expected date of discharge: 09/03/24 Attending physician: Rex Baker Consults: 09/01/24 12:11 Consult Physician Routine Consulting Provider: Efrain Musa Reason/Comments: Medical management Do you want consulting provider notified?: Yes Primary care physician: Efrain Musa - Discharge Diagnosis(es) (1) Status post lumbar spinal fusion Current Visit: Yes Status: Acute (2) Lumbar spinal stenosis Current Visit: Yes Status: Acute (3) Neurogenic claudication Current Visit: Yes Status: Acute (4) Lower extremity weakness Current Visit: Yes Status: Acute (5) Spondylolisthesis, lumbar region Current Visit: Yes Status: Acute (6) Lumbar herniated disc Current Visit: Yes Status: Acute (7) Radiculopathy with lower extremity symptoms Current Visit: Yes Status: Acute Hospital Course: This is a pleasant 78-year-old male who presented with Low back pain, Lumbar muscle spasms, L3-4 and L4-5 severe spinal stenosis, L3-4 and L4-5 spondylolisthesis, L3-4 and L4-5 herniated nucleus pulposus, Lower extremity radiculopathy, Neurogenic claudication, and Lower extremity weakness who failed outpatient conservative therapy. He was admitted for an L3-4 and L4-5 open posterior lateral decompression and fusion with transforaminal lumbar interbody fusion The patient tolerated the procedure well and did well postoperatively. His pain has been well-controlled with oral medications with hydrocodone 5 mg / 325 mg and baclofen.. He is not complaining of any lower extremity weakness or radiculopathy. He feels he is ready for discharge home today and request to be home discharged today.. He has a walker at home for home use as needed. Condition on day of discharge stable. Patient will be discharged home. Patient was cleared preoperatively for surgery by Dr. Musa. Patient currently denies any nausea, vomiting, fever, or chills. Patient is eating and voiding freely without difficulty. Patient may shower Optifoam dressing intact. Patient may remove Optifoam dressing in 3 days and shower without a dressing at that time. Patient should refrain from driving until at least after their first follow-up appointment in the office. Patient should avoid excessive bending, lifting, and twisting; no lifting greater than 10 pounds. Hemovac drain has been removed. There is no drainage from the Hemovac drain site. He must be cleared by medicine prior to discharge home. Case management was consulted yesterday for discharge with home health services. MAPS has been reviewed today, 09/03/2024, with an Overall Overdose Risk Score of 90. An "Opiod Start Talking" Form has been signed and placed in the patient's chart. A prescription has been written for hydrocodone 5 mg / 325 mg, 1 tab, every 6 hours, as needed for acute pain, dispense #28. Prescriptions also written for baclofen 10 mg, 1 tab, 3 times daily, as needed for muscle spasm dispense #60, and Senokot-S, 1 tab, twice daily, as needed for constipation, dispense #60. Prescriptions are sent to the [facility] pharmacy located within [facility] per request of the patient. Physical Exam on day of discharge: Patient is awake, alert, and oriented 3 Vital signs stable Good chest excursion with deep inspiration and expiration Abdomen soft nontender No signs or symptoms of DVT; no calf pain Extensor hallucis longus, plantarflexion, and dorsiflexion positive sustained bilateral lower extremities Surgical incision sites are clean, dry, and intact over the midline of the lumbar spine and Hemovac drain site; no erythema, purulence, or signs of infection No significant swelling at the surgical sites Optifoam dressing intact Patient Condition at Discharge: Stable Plan - Discharge Summary Discharge Rx Participant: No New Discharge Prescriptions: New Sennosides-Docusate Sodium [Senokot-S] 1 tab PO BID PRN #60 tablet PRN Reason: Constipation HYDROcodone/APAP 5-325MG [[place] 5] 1 each PO Q6HR PRN #28 tab PRN Reason: Pain Baclofen 10 mg PO TID PRN #60 tab PRN Reason: Spasms No Action Omeprazole [PriLOSEC] 20 mg PO HS metFORMIN HCL [Glucophage] 1,000 mg PO BID Vit C/E/Zn/Coppr/Lutein/Zeaxan [Preservision Areds 2 Softgel] 1 tab PO BID Pioglitazone [Actos] 30 mg PO DAILY Atorvastatin [Lipitor] 40 mg PO HS [place]-3/Dha/Epa/Fish Oil [[place]-3 Fish Oil 1,000 mg Sfgl] 1 cap PO BID hydroCHLOROthiazide [Hydrodiuril] 25 mg PO DAILY Multivitamins, Thera [Multivitamin (formulary)] 1 tab PO DAILY Cholecalciferol [Vitamin D3 (25 Mcg = 1000 Iu)] 25 mcg PO DAILY lisinopriL [Zestril] 30 mg PO DAILY amLODIPine [Norvasc] 10 mg PO HS Discharge Medication List Omeprazole [PriLOSEC] 20 mg PO HS 07/26/13 [History] Atorvastatin [Lipitor] 40 mg PO HS 04/28/18 [History] Pioglitazone [Actos] 30 mg PO DAILY 04/28/18 [History] Vit C/E/Zn/Coppr/Lutein/Zeaxan [Preservision Areds 2 Softgel] 1 tab PO BID 04/28/18 [History] metFORMIN HCL [Glucophage] 1,000 mg PO BID 04/28/18 [History] Cholecalciferol [Vitamin D3 (25 Mcg = 1000 Iu)] 25 mcg PO DAILY 06/30/24 [History] [place]-3/Dha/Epa/Fish Oil [[place]-3 Fish Oil 1,000 mg Sfgl] 1 cap PO BID 06/30/24 [History] amLODIPine [Norvasc] 10 mg PO HS 06/30/24 [History] hydroCHLOROthiazide [Hydrodiuril] 25 mg PO DAILY 06/30/24 [History] lisinopriL [Zestril] 30 mg PO DAILY 06/30/24 [History] Multivitamins, Thera [Multivitamin (formulary)] 1 tab PO DAILY 08/25/24 [History] Baclofen 10 mg PO TID PRN #60 tab 09/03/24 [Rx] HYDROcodone/APAP 5-325MG [[place] 5] 1 each PO Q6HR PRN #28 tab 09/03/24 [Rx] Sennosides-Docusate Sodium [Senokot-S] 1 tab PO BID PRN #60 tablet 09/03/24 [Rx] Follow up Appointment(s)/Referral(s): [facility], [NON-STAFF] - As Needed John Reis PAC [PHYSICIAN DIRECTOR OF CONVENTION SERVICES] - 2 Weeks (Patient may follow-up with John Reis PA-C or Dr. Chele Baker at [facility] in 2-3 weeks following discharge. ) Activity/Diet/Wound Care/Special Instructions: 1. Patient may shower with Optifoam dressing intact. 2. Patient may remove Optifoam dressing in 3 days and shower without a dressing at that time. 3. Patient should refrain from driving until at least after their first follow- up appointment in the office. 4. Patient should avoid excessive bending, twisting, lifting; avoid overhead lifting; no lifting greater than 10 pounds 5. Take medications as prescribed 6. Patient should avoid anti-inflammatory medications over the next 6 weeks postoperatively 7. Patient may utilize walker to aid in ambulation as needed 8. Do not soak in tub Discharge Disposition: HOME WITH HOME HEALTH SERVICES
[2024-09-03] MEDS: SENNOSIDES-DOCUSATE SODIUM 1 EACH TAB PO SCH (09:40)
--- NOTE | 2024-09-03 10:30 | P.PN ---
Subjective Progress Note Date: 09/03/24 - History of Present Illness This is a pleasant 78-year-old gentleman with past medical history significant for diabetes mellitus, gastroesophageal reflux disease, hypertension, hype rlipidemia, macular degeneration, multiple abdominal surgeries, prostate cancer- prostatectomy with radiation treatment, former nicotine dependence, status post Laminectomy and decompression L3-4 L4-5 with bilateral decompression and bilateral foraminotomies, discectomy for decompression L3-4 L4-5 secondary to severe spinal stenosis, spinal spondylolisthesis, disc herniation, lower extremity radiculopathy, lower extremity weakness, low back pain. Tolerated procedure well. Reports back spasms throughout the night. Tmax 100.8, WBC 10.47. Receiving IV fluid hydration with renal function improving, creatinine decreased to 01.2. denies nausea ,vomiting or diarrhea. Hemoglobin A1c 7, blood sugars controlled, ranging from 1 teens to 140s. Reports no bowel movement since one day prior to admission. Hemoglobin 9, platelets 202. Denies chest pain, palpitations or shortness of breath. Maintaining O2 sats in the mid 90s on room air. 09/03/24 significant clinical improvement. Reports he had a better night, slept well. Pain as well as muscle spasms better controlled. Has not yet had a bowel movement, minimal flatus. Howard catheter discontinued yesterday afternoon, reports spontaneously voiding without difficulty. Denies any lower extremity pain or numbness, reports only his chronic neuropathy. Vital signs stable, blood pressure soft currently ranging in the low 100s to 1 teens with maps of 72-80. Hydrochlorothiazide and lisinopril remain on hold. Hemoglobin 8.4, platelets 173. Bicarb 21, BUN 18.3, creatinine 1.1. Blood sugars controlled, ranging 120s to 160s; currently in the 120s. Reports ambulating with walker, tolerating exertion well, denies lightheadedness, dizziness or focal deficits. Denies chest pain, palpitations or shortness of breath. Maintaining O2 sats in the 90s on room air. I-S up to 1999. Afebrile, WBC 11. Objective - Vital Signs Vital signs: Vital Signs Temp 98.6 F 09/03/24 06:59 Pulse 79 09/03/24 06:59 Resp 19 09/03/24 06:59 BP 116/62 09/03/24 06:59 Pulse Ox 93 L 09/03/24 06:59 FiO2 Intake & Output 09/02/24 09/03/24 09/03/24 18:59 06:59 18:59 Output Total 530 730 395 Balance -530 -730 -395 Output: Drainage 230 45 Lower Back 230 45 Urine 300 730 350 Uretheral (Howard) 200 Other: Voiding Method Indwelling Catheter Urinal # Voids 1 - Exam VITAL SIGNS: [Reviewed] GENERAL: Alert and oriented x 3, sitting up in chair, no acute distress HEENT: Normocephalic, atraumatic ,conjunctivae normal. eyes normal. MMM. NECK: Supple, no JVD. CARDIOVASCULAR: S1, S2 regular.No murmur RESPIRATION: Unlabored, equal air entry,CTA, bilateral bases diminished ABDOMEN: Soft, mildly bloated, nontender . No guarding. no masses palpable. Positive bowel sounds. Extremities: No peripheral edema, no clubbing or cyanosis, no calf pain ,peripheral pulses intact. NERVOUS SYSTEM: Cranial N 2-12 grossly normal. No focal deficits. Skin: Warm and dry, no rash. Surgical dressing on back, clean dry and intact. - Labs CBC & Chem 7: 09/03/24 05:11 09/03/24 05:11 Labs: Abnormal Lab Results - Last 24 Hours (Table) 09/02/24 09/02/24 09/02/24 Range/Units 11:59 16:21 21:07 WBC (4.50-10.00) X 10*3/uL RBC (4.40-5.60) X 10*6/uL Hgb (13.0-17.0) g/dL Hct (39.6-50.0) % RDW (11.5-14.5) % Carbon Dioxide (21.6-31.8) mmol/L Glucose (70-110) mg/dL POC Glucose (mg/dL) 166 H 143 H 151 H (70-110) mg/dL Calcium (8.7-10.3) mg/dL 09/03/24 09/03/24 09/03/24 Range/Units 05:11 05:11 06:20 WBC 11.13 H (4.50-10.00) X 10*3/uL RBC 2.96 L (4.40-5.60) X 10*6/uL Hgb 8.4 L (13.0-17.0) g/dL Hct 25.5 L (39.6-50.0) % RDW 15.7 H (11.5-14.5) % Carbon Dioxide 21.0 L (21.6-31.8) mmol/L Glucose 124 H (70-110) mg/dL POC Glucose (mg/dL) 124 H (70-110) mg/dL Calcium 8.4 L (8.7-10.3) mg/dL Assessment and Plan Assessment: Severe spinal stenosis L3-4 L4-5, spondylolisthesis L3-4 L4-5, disc herniation L3-4 and L4-5, lower extremity radiculopathy, neurogenic claudication, lower extremity weakness, low back pain, status post Laminectomy and decompression L3- 4 L4-5 with bilateral decompression and bilateral foraminotomies, Discectomy for decompression L3-4 L4-5 Postoperative blood loss anemia, expected outcome Leukocytosis, low-grade fever postoperative, secondary to atelectasis, expected outcome Diabetes mellitus, hemoglobin A1c 7. Hypertension Hyperlipidemia Multiple abdominal surgeries Prior nicotine dependence History prostate cancer,radical prostatectomy and radiation Obesity, BMI 31 Plan: Continue on current medication regime ,monitoring and symptomatic treatment. Discharge planning in progress for today as per orthopedic spine. Patient has been advised to continue using incentive spirometer at home as advised over the next 2 weeks for aggressive pulmonary toileting. Hold off on hydrochlorothiazide and ERASMO inhibitor, renal function improving.,blood pressure soft, reevaluate at follow-up visit with PCP . Postoperative anemia, recommend repeating CBC, BMP outpatient on Friday with results to PCP .Pain management/ muscle relaxants and DVT prophylaxis as per primary. Tight glycemic control, return to home med regimen at [place]. PT/OT. Follow-up with PCP next week. The impression and plan of care has been dictated as directed. : I performed a history and examination of this patient, discussed the same with the dictator. I agree with the dictator's note ,documented as a scribe. Any additional findings or plans will be noted.
[2024-09-03 11:46] LABS: Glucose,Whole Blood 143 mg/dL (70-110)
== END 2024-09-03 14:24 | disposition home health service (06) ==
LOC: OR 06:32 → 4SSUR 12:08 → OR 09-03 14:24
PROVIDERS: ATTEND Orthopaedic Surgery Orthopaedic Surgery of the Spine
DX: M48.062 Spinal stenosis, lumbar region with neurogenic claudication (principal); M43.16 Spondylolisthesis, lumbar region; M51.16 Intervertebral disc disorders with radiculopathy, lumbar region; D72.829 Elevated white blood cell count, unspecified; D62 Acute posthemorrhagic anemia; K21.9 Gastro-esophageal reflux disease without esophagitis; E11.9 Type 2 diabetes mellitus without complications; E78.5 Hyperlipidemia, unspecified; I10 Essential (primary) hypertension; E66.9 Obesity, unspecified; Z85.46 Personal history of malignant neoplasm of prostate; Z92.3 Personal history of irradiation; Z87.891 Personal history of nicotine dependence; Z68.31 Body mass index [BMI] 31.0-31.9, adult; Z90.79 Acquired absence of other genital organ(s); Z88.5 Allergy status to narcotic agent; Z79.84 Long term (current) use of oral hypoglycemic drugs; Z79.02 Long term (current) use of antithrombotics/antiplatelets; Z79.899 Other long term (current) drug therapy
CPT/HCPCS: 97116; 97161; 97166; 80048 ×3; 85025 ×2; 85027; 83036; 72100; 22633; 22634; 63052; 22853; 20930; 20936; C1713 ×2; J0690 ×2; J2405; J1171 ×2; J0665

== ENCOUNTER 2024-09-05 12:21 | Emergency (ER) | payer MEDICARE, OTHER ==
[2024-09-05 12:28] VITALS: RESP 18; TEMP 98.5
--- NOTE | 2024-09-05 12:58 | ED ---
General Adult HPI - General Chief complaint: Wound/Laceration Stated complaint: Post Op Issue Time Seen by Provider: 09/05/24 12:28 Source: patient, family Mode of arrival: wheelchair Limitations: no limitations - History of Present Illness Initial comments: Dictation was produced using [employer] ([employer]) dictation software. please excuse any grammatical, word or spelling errors. Chief Complaint: 78-year-old male presents emergency department with bleeding from surgical site History of Present Illness: Patient is 78-year-old male presents to the emergency department for bleeding from surgical site. 4 days ago patient had back surgery with Dr. Baker. Patient was instructed to remove the bandage today. Had home health care visiting nurse come and check on the patient. There was saturation of serosanguineous fluid to his dressing. Home health care visiting nurse recommended patient come to the emergency department for further evaluation. Patient has no other complaints The ROS documented in this emergency department record has been reviewed and confirmed by me. Those systems with pertinent positive or negative responses have been documented in the HPI. All other systems are other negative and/or noncontributory. - Related Data Home Medications Medication Instructions Recorded Confirmed Omeprazole [PriLOSEC] 20 mg PO HS 07/26/13 09/01/24 Atorvastatin [Lipitor] 40 mg PO HS 04/28/18 09/01/24 Pioglitazone [Actos] 30 mg PO DAILY 04/28/18 09/01/24 Vit C/E/Zn/Coppr/Lutein/Zeaxan 1 tab PO BID 04/28/18 08/25/24 [Preservision Areds 2 Softgel] metFORMIN HCL [Glucophage] 1,000 mg PO BID 04/28/18 09/01/24 Cholecalciferol [Vitamin D3 (25 25 mcg PO DAILY 06/30/24 08/25/24 Mcg = 1000 Iu)] [place]-3/Dha/Epa/Fish Oil [[place]-3 1 cap PO BID 06/30/24 08/25/24 Fish Oil 1,000 mg Sfgl] amLODIPine [Norvasc] 10 mg PO HS 06/30/24 09/01/24 hydroCHLOROthiazide [Hydrodiuril] 25 mg PO DAILY 06/30/24 09/01/24 lisinopriL [Zestril] 30 mg PO DAILY 06/30/24 09/01/24 Multivitamins, Thera [Multivitamin 1 tab PO DAILY 08/25/24 08/25/24 (formulary)] Previous Rx's Medication Instructions Recorded Baclofen 10 mg PO TID PRN #60 tab 09/03/24 HYDROcodone/APAP 5-325MG [[place] 5] 1 each PO Q6HR PRN #28 tab 09/03/24 Sennosides-Docusate Sodium 1 tab PO BID PRN #60 tablet 09/03/24 [Senokot-S] Cephalexin [Keflex] 500 mg PO Q6HR 5 Days #20 cap 09/05/24 Allergies Allergy/AdvReac Type Severity Reaction Status Date / Time codeine AdvReac dizziness Verified 09/05/24 12:24 Review of Systems ROS Statement: Those systems with pertinent positive or pertinent negative responses have been documented in the HPI. ROS Other: All systems not noted in ROS Statement are negative. Past Medical History Past Medical History: Cancer, Diabetes Mellitus, GERD/Reflux, Hyperlipidemia, Hypertension Additional Past Medical History / Comment(s): HX COLOSTOMY R/T PERFORATED COLON AFTER COLONOSCOPY. HAS SINCE HAD REVERSAL. HX PROSTATE CANCER 2008 AND SKIN CA- 1993, macular degeneration, cataracts History of Any Multi-Drug Resistant Organisms: None Reported Past Surgical History: Back Surgery, Bowel Resection, Hernia Repair, Prostate Surgery Additional Past Surgical History / Comment(s): COLOSTOMY W/REVERSAL, COLONSCOPY. RADICAL PROSTATECTOMY 2008 WITH RADIATION [place] AFTER. Past Anesthesia/Blood Transfusion Reactions: No Reported Reaction Past Psychological History: No Psychological Hx Reported Smoking Status: Former smoker Past Alcohol Use History: None Reported Past Drug Use History: None Reported - Past Family History Father Family Medical History: Cancer Sister(s) Family Medical History: Cancer General Exam - General Exam Comments Initial Comments: General: Well-appearing, nontoxic, no acute distress. Head: Normocephalic, atraumatic Eyes: PERRLA, EOMI ENT: Airway patent Chest: Nonlabored breathing Skin: No visual rash, normal skin tone Neuro: Alert and oriented 3 Musculoskeletal: No gross abnormalities Surgical site to the lumbar region: Wound clean and intact. There is some serosanguineous drainage from the inferior portion of the wound. No bleeding Limitations: no limitations Course Vital Signs 09/05/24 12:24 Temperature 98.5 F Pulse Rate 79 Respiratory 18 Rate Blood Pressure 119/65 O2 Sat by Pulse 98 Oximetry Medical Decision Making - Medical Decision Making Was pt. sent in by a medical professional or institution (, PA, RECRUITING SPECIALIST, urgent care, hospital, or prison...) When possible be specific @ -No Did you speak to anyone other than the patient for history (EMS, parent, family, police, friend...)? What history was obtained from this source @ -No Did you review nursing and triage notes (agree or disagree)? Why? @ -I reviewed and agree with nursing and triage notes Were old charts reviewed (outside hosp., previous admission, EMS record, old EKG, old radiological studies, urgent care reports/EKG's, prison records)? Report findings @ -Chart review was performed showing patient had back surgery 4 days ago Differential Diagnosis (chest pain, altered mental status, abdominal pain women, abdominal pain men, vaginal bleeding, musculoskeletal, weakness, fever, dyspnea, syncope, headache, dizziness, GI bleed, back pain, seizure, CVA, palpatations, mental health)? @ -Surgical site hemorrhage, surgical site infection, CSF leak EKG interpreted by me (3pts min.). @ -None done X-rays interpreted by me (1pt min.). @ -None done CT interpreted by me (1pt min.). @ -None done U/S interpreted by me (1pt. min.). @ -None done What testing was considered but not performed or refused? (CT, X-rays, U/S, labs)? Why? @ -None What meds were considered but not given or refused? Why? @ -None Was smoking cessation discussed for >3mins.? @ -No Were there social determinants of health that impacted care today? How? (Homelessness, low income, unemployed, alcoholism, drug addiction, transportation, low edu. Level, literacy, decrease access to med. care, mcc, rehab)? @ -No Was there de-escalation of care discussed even if they declined (Discuss DNR or withdrawal of care, Hospice)? DNR status @ -No What co-morbidities impacted this encounter? (DM, HTN, Smoking, COPD, CAD, Cancer, CVA, ARF, Chemo, Hep., AIDS, mental health diagnosis, sleep apnea, morbid obesity)? @ -None Was patient admitted / discharged? Hospital course, mention meds given and route, prescriptions, significant lab abnormalities, going to OR and other pe rtinent info. @ -70-year-old male presents to the ER for surgical site drainage. Vital signs stable. Patient denies any significant neurologic complaints. States that his wound is draining. Wound is clean and intact. There does appear to be some serosanguineous drainage to the inferior portion of the wound. Case discussed with Dr. Adames who got in touch with Dr. Baker patient surgeon recommended loose dressing and initiating Keflex therapy and to follow-up in the office next week. Did you discuss the management of the patient with other professionals (professionals i.e. , PA, RECRUITING SPECIALIST, lab, RT, psych nurse, neonatal social worker, hazardous material technician, teacher, ship officer, manager case)? Give summary @ -See above Was critical care preformed (if so, how long)? @ -No Undiagnosed new problem with uncertain prognosis? @ -No Drug Therapy requiring intensive monitoring for toxicity (Heparin, Nitro, Insulin, Cardizem)? @ -No Were any procedures done? @ -No Diagnosis/symptom? Acute, or Chronic, or Acute on Chronic? Uncomplicated (without systemic symptoms) or Complicated (systemic symptoms)? @ -Surgical site drainage Side effects of treatment? @ -No Exacerbation, Progression, or Severe Exacerbation? @ -No Poses a threat to life or bodily function? How? (Chest pain, USA, CA, pneumonia, PE, COPD, DKA, ARF, appy, cholecystitis, CVA, Diverticulitis, Homicidal, Suicidal, threat to staff... and all critical care pts) @ -No Disposition Clinical Impression: Surgical site reaction Disposition: HOME SELF-CARE Condition: Good Instructions (If sedation given, give patient instructions): Surgical Site Infections (ED) Prescriptions: Cephalexin [Keflex] 500 mg PO Q6HR 5 Days #20 cap Is patient prescribed a controlled substance at d/c from ED?: No Referrals: Rex Baker DO [Doctor of Osteopathic Medicine] - 1-2 days Time of Disposition: 13:26
[2024-09-05 14:16] VITALS: BP 125/66; PULSE 70
== END 2024-09-05 14:04 | disposition home or self-care (01) ==
LOC: EC 12:21
DX: T81.41XA Infection following a procedure, superficial incisional surgical site, initial encounter (principal); Z87.891 Personal history of nicotine dependence; Z88.5 Allergy status to narcotic agent
CPT/HCPCS: 99283